=== PATIENT | male | born 1960 | race Caucasian/White ===

== ENCOUNTER 2019-10-12 17:07 | Outpatient (CLI) | payer OTHER, SELFPAY ==
--- NOTE | ~2019-10-12 | XR_ITS ---
XR abdomen/kub 1V 10/12/2019 17:31 INDICATION: Left-sided flank pain for 2 days. History of kidney stones. TECHNIQUE: KUB COMPARISON: None FINDINGS: Bowel gas pattern is normal. There is no evidence of free air, mass, organomegaly, ascites or obstruction. There are calcifications overlying the sacrum on the left. Cannot exclude ureteral s tone. The bones appear intact. There are calcified granulomas in the spleen. IMPRESSION: 1: Possible left ureteral stone/s overlying the sacrum.. Reviewed, dictated and finalized at location A.
--- NOTE | ~2019-10-12 | CT_ITS ---
EXAMINATION: CT abdomen pelvis wo con DATE: 10/12/2019 17:36 INDICATION: Flank pain. Kidney stones. TECHNIQUE: Computed tomography (CT) of the abdomen and pelvis was performed without intravenous contr ast. The dose-length product was 313.60 mGy-cm. Automated exposure control and iterative reconstructi on technique were employed. COMPARISON: CT dated 11/24/2011 FINDINGS: Lung bases are unremarkable. Heart size normal. There is atherosclerosis. No significant pl eural or pericardial effusion. There is nodular appearance to the liver surface, suspicious for cirrhosis. There are calcified granu patria in the spleen. The pancreas, adrenal glands are unremarkable. There are small exophytic nodule from the left kidney, too small to characterize. There are punctate nonobstructing bilateral renal st ones. No ureteral stones or hydronephrosis. Bladder is decompressed. There are pelvic vascular calcif ications accounting for calcifications seen on KUB. No abnormal pelvic masses or fluid collections. T here is mild left periureteral edema, nonspecific. IMPRESSION: 1. No obstructing urolithiasis. Mild left periureteral edema may relate to recently passed stone or a scending urinary tract infection. 2: Nodular appearance to the left kidney. Recommend correlation with ultrasound on a nonemergent basi s. 3: Nodular appearance to the liver surface, suspicious for cirrhosis. Reviewed, dictated and finalized at location A. IMPRESSION: 1. No obstructing urolithiasis. Mild left periureteral edema may relate to rece ntly passed stone or ascending urinary tract infection. 2: Nodular appearance to the left kidney. Recommend correlation with ultrasound on a nonemergent basis. 3: Nodular appearance to the liver surface, suspicious for cirrhosis.
== END 2019-10-12 17:08 | disposition home or self-care (01) ==
PROVIDERS: PCP Family Medicine; Visit Provider Nurse Practitioner Family
DX: M54.9 Dorsalgia, unspecified (principal); R10.9 Unspecified abdominal pain; R31.9 Hematuria, unspecified
CPT/HCPCS: 74018; 74176

== ENCOUNTER 2021-06-02 11:12 | Outpatient (CLI) | payer OTHER, SELFPAY ==
--- NOTE | ~2021-06-02 | XR_ITS ---
XR chest 2V DATE: 06/02/2021 11:33 INDICATION: Cough. Covid 19. TECHNIQUE: PA and lateral views COMPARISON: 06/12/2013 PA and lateral chest FINDINGS: Status post sternotomy no pulmonary vascular congestion or pleural effusion or pneumothorax .. Status post lower anterior cervical spine surgical fusion since 2013. Heart size is borderline. There are patchy infiltrates in the right mid and both lower lung zones, suggesting bilateral Covid p neumonia. IMPRESSION: Patchy bilateral pulmonary infiltrates suggesting bilateral Covid pneumonia Reviewed, dictated and finalized at location A. [employer] IMPRESSION: Patchy bilateral pulmonary infiltrates suggesting bilateral Covid p neumonia
[2021-06-02 11:59] LABS: Add Urine Microscopic? YES; Appearance Urine Clear (Clear); Bilirubin Urine Negative (Negative); Blood Urine Negative (Negative); Color Urine Yellow (Yellow); Glucose Urine UA Negative (Negative); Ketones Urine Negative (Negative); Leukocyte Esterase Ur 1+ LEU/UL (NEGATIVE); Mucus Urine Rare /lpf; Nitrate Urine Negative (Negative); Protein Urine 2+ mg/dL (Negative); Specific Grav Ur 1.027 (1.001-1.035); Urobilinogen Urine Negative mg/dL (<2.0); WBC Urine 51-75 /hpf (0-3)
[2021-06-02 12:05] LABS: Alanine Aminotransferase 60 U/L (4-50); Albumin Level 4.5 g/dL (3.5-5.1); Alkaline Phosphatase 65 U/L (38-126); Anion Gap 12 mmol/L (8-16); Aspartate Amino Transferase 56 U/L (17-59); Blood Urea Nitrogen 22 mg/dL (9-20); Calcium 8.8 mg/dL (8.4-10.2); Carbon Dioxide 24 mmol/L (22-30); Chloride 97 mmol/L (98-107); Estimated Glomerular Filt Rate > 60; Glucose 129 mg/dL (65-110); Potassium 4.2 mmol/L (3.4-5.0); Sodium 133 mmol/L (137-145)
[2021-06-02 12:08] LABS: D Dimer 0.32 ug/mL (<0.48)
== END 2021-06-02 11:13 | disposition home or self-care (01) ==
LOC: ANHIMG 11:13
PROVIDERS: PCP Family Medicine; Visit Provider Family Medicine
DX: R05.9 Cough, unspecified (principal); U07.1 COVID-19; R35.89 Other polyuria; R91.8 Other nonspecific abnormal finding of lung field
CPT/HCPCS: 36415; 71046; 80053; 81001; 85380

== ENCOUNTER 2023-07-21 10:21 | Outpatient (CLI) | payer OTHER, SELFPAY ==
[2023-07-21 11:05] LABS: Hemoglobin 13.8 g/dL (14.0-18.0); Mean Corpuscular HGB Conc 32.9 g/dl (32-36); Mean Corpuscular Hemoglobin 28.6 pg (26-34); Mean Corpuscular Volume 87.1 fl (80-100); Mean Platelet Volume 9.3 fl (7.4-10.4); Platelet Count Result 169 k/mm3 (150-375); Red Blood Count 4.82 M/mm3 (4.6-6.20); Red Cell Distribution Width 13.7 % (11.5-14.5); White Blood Count 8.3 K/mm3 (4.5-10.0)
[2023-07-21 11:09] LABS: Ammonia < 9 umol/L (9-30)
[2023-07-21 11:13] LABS: Iron 114 ug/dL (49-181)
[2023-07-21 11:20] LABS: Anion Gap 8 mmol/L (8-16); Blood Urea Nitrogen 16 mg/dL (9-20); Carbon Dioxide 25 mmol/L (22-30); Chloride 99 mmol/L (98-107); Estimated Glomerular Filt Rate > 60; Glucose 191 mg/dL (65-110); Magnesium 1.6 mg/dL (1.6-2.3); Sodium 132 mmol/L (137-145)
[2023-07-21 11:23] LABS: Percent Iron Saturation 35 % (20-50)
[2023-07-21 12:28] LABS: Potassium 4.4 mmol/L (3.4-5.0)
== END 2023-07-21 10:22 | disposition home or self-care (01) ==
LOC: ANHLAB 10:23
PROVIDERS: PCP Family Medicine; Visit Provider Family Medicine
DX: D50.0 Iron deficiency anemia secondary to blood loss (chronic) (principal); I10 Essential (primary) hypertension; E72.20 Disorder of urea cycle metabolism, unspecified
CPT/HCPCS: 36415; 80048; 82140; 82728; 83540; 83550; 83735; 85027

== ENCOUNTER 2024-05-11 12:56 | Emergency (ER) | payer OTHER, SELFPAY ==
[2024-05-11 13:14] VITALS: BP 131/81; PULSE 80; RESP 16; TEMP 36.6; O2SAT 98
--- NOTE | 2024-05-11 13:48 | ED.URI ---
HPI - URI/Sore Throat General Chief Complaint: Upper Respiratory Infection Stated Complaint: Congestion,cough Time Seen by Provider: 05/11/24 13:30 Source: patient Mode of arrival: ambulatory Limitations: no limitations History of Present Illness HPI Narrative: Gab is a 63-year-old male patient presenting to the clinic today with complaints of cough and head congestion x2 days. Has had exposure to COVID. tested positive for COVID in the clinic today. He denies any chest pain or shortness of breath. MD elicited complaint: cough and nasal congestion Related Data Home Medications ?Medication ?Instructions ?Recorded ?Confirmed ?Last Taken ?Type metoprolol succinate 50 mg 50 mg PO DAILY 07/13/19 06/01/23 Unknown History tablet,extended release 24 hr (Toprol XL) gabapentin 300 mg capsule 600 mg PO BID 03/12/21 06/01/23 Unknown History rosuvastatin 40 mg tablet (Crestor) 40 mg PO DAILY 04/21/22 06/01/23 Unknown History nitroglycerin 0.4 mg sublingual 0.4 mg sublingual Q5M PRN 06/01/23 06/01/23 Unknown History tablet glimepiride 1 mg tablet 1 mg PO QAM 07/19/23 Unknown History metformin 500 mg tablet 500 mg PO BID 07/19/23 Unknown History Allergies Allergy/AdvReac Type Severity Reaction Status Date / Time No Known Allergies Allergy Mild Verified 07/19/23 12:23 Review of Systems Review of Systems: Pertinent positives per HPI. Patient denies any fever, chills, rash, headache, visual changes, dizziness, shortness of breath, chest pain, palpitations, nausea, vomiting, diarrhea, constipation, abdominal pain, or any urinary issues. [facility] Past Medical History Medical History (Updated 05/11/24 @ 13:50 by Medardo Gil APRN) Hunner's ulcer Left kidney mass Fatigue Blood loss anemia Low vitamin D level Low vitamin B12 level Hyperammonemia Easy bruising Confusion BMI 29.0-29.9,adult Wheezy bronchitis Memory loss Dysphagia Apnea Right arm pain Recurrent urinary tract infection Vision loss, bilateral Dysuria Pneumonia due to COVID-19 virus BMI 30.0-30.9,adult Polyuria COVID-19 BMI greater than 30 Need for vaccination Nodular hyperplasia of liver Leg cramping BMI 31.0-31.9,adult Depression Arthralgia BMI 32.0-32.9,adult Tick bite Psoriasis Eustachian tube dysfunction Cerumen impaction Elevated liver enzymes Surgical History Surgical History Hx of cervical spine surgery Hx of bladder endoscopy Hx of colonoscopy History of bladder surgery Family History Family History Father Cerebrovascular accident Family history of diabetes mellitus in first degree relative Parkinson's disease Diabetes mellitus Heart disease Skin cancer Mother Family history of coronary artery disease Decreased mobility Hypertension Grandparent Diabetes mellitus Sibling Diabetes mellitus Hypertension Skin cancer Social History Social History Smoking status: Never smoker Second hand tobacco smoke exposure: Yes Alcohol intake: never Substance use: never Substance use type: does not use Do You Feel Safe in your Home?: Yes Lack of Transportation: No Lack of Food: Never True Current Housing: I Have Housing Concerned About Future Housing: No Difficulty Paying Gas/Electric Bills: No Difficulty Paying for Meds: No Currently Unemployed: No Education: Trade/Vocational Certificate Difficulty w/ Childcare or Family Care: No Living arrangements: with family Occupation/Education: retired Additional occupation/education comments: [employer] Gender identity (if verbalized by the patient): Male Comments At the time of my signature, I reviewed and agree with the nursing past medical, surgical, social, and family history. There is no relevant family history pertinent to the patient complaint. Exam Narrative: General: Well-developed, well nourished, in no apparent distress Head: Normocephalic, atraumatic Eyes: Pupils equally round and reactive to light bilaterally, EOM intact, sclera and conjunctive clear, no discharge, lids normal Ears: TMs intact and clear, ear canals clear, no drainage, grossly hearing normal. Nose: Nares patent, clear nasal discharge, no inflammation, no sinus tenderness. Mouth: Oral pharynx without lesions or masses, good dentition, MMM. Neck: Supple, trachea midline, no enlargement of anterior or posterior cervical nodes, no thyroid masses or goiter palpable. Cardio: Regular rate and rhythm, s1 and s2 normal, no murmur appreciated. Resp: Clear to auscultation bilaterally, no rhonchi, rales, wheezing or rubs Course Course Emergency Course: Portions of this record may have been created with voice recognition software. Level of Care: Express Care Visit Vital Signs Vital signs: Vital Signs Temperature 36.6 C 05/11/24 13:14 Pulse Rate 80 05/11/24 13:14 Respiratory Rate 16 05/11/24 13:14 Blood Pressure 131/81 05/11/24 13:14 Pulse Oximetry 98 05/11/24 13:14 Temperature 36.6 C 05/11/24 13:14 Pulse Rate 80 05/11/24 13:14 Respiratory Rate 16 05/11/24 13:14 Blood Pressure 131/81 05/11/24 13:14 Pulse Oximetry 98 05/11/24 13:14 Vital signs reviewed MDM - URI/Sore Throat MDM Narrative Medical decision making narrative: At the time of visit patient is resting comfortably on the exam table. Patient appears to be nontoxic. Labs: COVID test was negative in the clinic today. Plan: I suspect patient has URI with COVID exposure. Supportive measures were discussed with the patient and they voiced understanding discharge instructions and agrees to treatment plan. Return precautions reviewed Differential Diagnosis Differential diagnosis: Likely upper respiratory infection, otitis media, sinusitis, viral infection, bronchitis, influenza, pharyngitis and other (COVID) Lab Data Labs: Lab Results 05/11/24 Range/Units 13:49 POC Influenza A Ag Negative (Negative) POC Influenza B Ag Negative (Negative) POC SARS CoV-2 Ag Negative (Negative) Discharge Plan Discharge Clinical Impression: Close exposure to COVID-19 virus URI (upper respiratory infection) Qualifiers: URI type: unspecified URI Qualified Code(s): J06.9 - Acute upper respiratory infection, unspecified Patient Disposition: Home, Self-Care Condition: Stable Instructions: Antibiotic Form, Cold Symptoms (ED), How to Recover from COVID-19 at Home (ED) Additional Instructions: COVID and influenza testing was negative Increase fluids and stay well hydrated Tylenol/motrin for pain/fever Flonase and OTC antihistamines as directed Vicks vapor rub to open sinuses Sinus rinses for congestion Cepacol spray, cough drops, throat lozenges, warm tea with honey/lemon, gargle salt water to soothe throat BRAT diet for diarrhea Clear liquids x 24 hours then advance as tolerated for nausea/vomiting Go to the ED if you develop a worsening in your condition- high fever not controlled by Tylenol or Motrin, dehydration, weakness, lethargy, shortness of breath, or chest pain. Follow up with your PCP in 3-5 days if symptoms persist. Patient Language: Mexican Prescriptions: No Action gabapentin 300 mg capsule 600 mg PO BID metoprolol succinate [Toprol XL] 50 mg tablet extended release 24 hr 50 mg PO DAILY rosuvastatin [Crestor] 40 mg tablet 40 mg PO DAILY nitroglycerin 0.4 mg tablet, sublingual 0.4 mg sublingual Q5M PRN Rx Instructions: do not exceed 3 doses per episode metformin 500 mg tablet 500 mg PO BID glimepiride 1 mg tablet 1 mg PO QAM Rx Instructions: administer with breakfast albuterol sulfate 90 mcg/actuation HFA aerosol inhaler 2 puff INHALATION Q4H PRN (Reason: bronchospasm) Qty: 8.5 2RF dutasteride [Avodart] 0.5 mg capsule 0.5 mg PO DAILY Qty: 90 3RF duloxetine [Cymbalta] 30 mg capsule,delayed release(DR/EC) 30 mg PO DAILY Qty: 90 1RF lisinopril 10 mg tablet See Rx Instructions .ROUTE .COMPLEX Qty: 90 1RF Dose Instruction: TAKE ONE TABLET BY MOUTH EVERY DAY Rx Instructions: TAKE ONE TABLET BY MOUTH EVERY DAY omeprazole 40 mg capsule,delayed release(DR/EC) See Rx Instructions .ROUTE .COMPLEX Qty: 30 3RF Dose Instruction: TAKE ONE CAPSULE BY MOUTH EVERY DAY Rx Instructions: TAKE ONE CAPSULE BY MOUTH EVERY DAY oxycodone-acetaminophen [Percocet] 10-325 mg tablet See Rx Instructions PO Q6H PRN (Reason: pain) Qty: 30 0RF Rx Instructions: 0.5 to1 tab PO every 6 hours PRN; tizanidine 2 mg tablet See Rx Instructions .ROUTE .COMPLEX Qty: 60 0RF Dose Instruction: TAKE 2 TABLET BY MOUTH TWICE A DAY NEEDED FOR MUSCLE SPASTICITY Rx Instructions: TAKE 2 TABLET BY MOUTH TWICE A DAY NEEDED FOR MUSCLE SPASTICITY Follow-up/Referrals: Tomas Hernández MD [Primary Care Provider] - Time of Disposition: 13:50 Quality NIHSS Nursing Documentation ED NIHSS nursing documentation: reviewed/agree
[2024-05-11 13:51] LABS: EDCOVIDSCREEN Negative (Negative); EDINFLUASCREEN Negative (Negative); EDINFLUBSCREEN Negative (Negative)
== END 2024-05-11 14:00 | disposition home or self-care (01) ==
PROVIDERS: Emergency Provider Nurse Practitioner Family; PCP Family Medicine
DX: J06.9 Acute upper respiratory infection, unspecified (principal); Z20.822 Contact with and (suspected) exposure to COVID-19
CPT/HCPCS: 87426; 87804; 99212; G0463

== ENCOUNTER 2024-06-29 11:45 | Outpatient (CLI) | payer OTHER, SELFPAY ==
--- OUTSIDE RECORDS SUMMARY | 2024-06-29 11:49 | XMS_ITS | Referral Summary ---
Author Organization [facility] Address [address] [place] [address] Care Team Providers Care [employer] Firer Name Role Phone Tomas Hernández MD Primary Care Provider Francisco Domínguez MD Unavailable [phone] Encounters Date Type Department Care Team Description 5 10:07 AM [facility] Anesthesia Event [facility] [place] [address] [address] Agnes Ferrer MD 5 10:00 AM SOLUTIONS MANAGER - 5 10:30 AM [facility] Surgery [facility] [place] [address] [address] Enriqueta Pardo MD ESOPHAGOGASTRODUODENOSCOPY 5 8:33 AM SOLUTIONS MANAGER - 5 11:10 AM [facility] Hospital Encounter [facility] [place] [address] [address] Enriqueta Pardo MD Discharge Disposition: Discharge to home or self care 5 Telephone [facility] Specialty Services [address] [place] [address], [place] [address] Zarina Mauro RN GI PROCEDURE 7 DAY PRE CALL 5 Telephone [facility] Urology [address] [facility] Medical Office Building [address] [place] [phone] Bg Desai MD 4 11:59 PM SOLUTIONS MANAGER Anesthesia Event [facility] [address] [facility] [address] [place] [address] Joseph Vallejo MD Terkonda, Raghu P., MD 4 Telephone [facility] Specialty Services [address] [place] [phone] Miscellaneous , Not In File 4 Telephone [facility] [address] [facility] Advanced [facility] 12th [place] [address] [place] [phone] Kusum Bansal 4 Telephone [facility] Specialty Services [address] [place] [phone] Drea Ragland RN GI Preprocedure 4 Telephone [facility] Cardiology [address] [facility] [address] [place] [address] Joseph Lockwood MD Med Refill 4 Telephone [facility] [address] [place] [address] [address] [place] [address] Kim Huerta MD Med Refill 4 3:00 PM SOLUTIONS MANAGER [facility] Urology [address] [facility] 11th [place] [address] [place] [phone] Cici Contreras MD Clear cell renal cell carcinoma, left (HCC) (Primary Dx); Interstitial cystitis 4 1:35 PM SOLUTIONS MANAGER Lab [facility] Lab [address] [place], [place] [id number] Type 2 diabetes mellitus wit h hyperglycemia, without long-term current use of insulin (HCC); Vitamin D deficiency 4 1:55 PM SOLUTIONS MANAGER - 4 11:59 PM SOLUTIONS MANAGER Hospital Encounter [facility] Medical Office Building [address] [place] [id number] Clear cell renal cell carcinoma, left (HCC) Discharge Disposition: Discharge to home or self care 4 Telephone [facility] Diabetes [facility] Endocrinology [address] [place] [phone] Kim Huerta MD PCP Callback Request - Patient 4 1:15 PM SOLUTIONS MANAGER Office Visit [facility] Endocr[facility]ology [address] [place] [phone] Kim Huerta MD Type 2 diabetes mellitus with hyperglycemia, without long-term current use of insulin (HCC) (Primary Dx); Hypertension associated with diabetes (HCC); Hyperlipidemia associated with type 2 diabetes mellitus (HCC); Vitamin D deficiency 4 12:15 PM SOLUTIONS MANAGER - 4 1:30 PM SOLUTIONS MANAGER Surgery [facility] Operating Room [address] [place] [address] Bg Desai MD BLADDER HYDRODISTENTION: KENALOG INJECTION FULGURATION OF HUNNER LESIONS 4 11:53 AM SOLUTIONS MANAGER Anesthesia Event [facility] Operating Room 1 [place] [address] Grey Rhoades MD Horton, Cheryl Renee Hill, NP 4 9:11 AM SOLUTIONS MANAGER - 4 2:08 PM SOLUTIONS MANAGER Hospital Encounter [facility] Operating Room [address] [place] [address] Bg Desai MD IC (interstitial cystitis) (Primary Dx) Discharge Disposition: Discharge to home or self care 4 3:20 PM SOLUTIONS MANAGER - 4 11:59 PM SOLUTIONS MANAGER Hospital Encounter [address] [address] Interstitial cystitis Discharge Disposition: Discharge to home or self care 4 3:15 PM SOLUTIONS MANAGER Lab [facility] Outpatient Lab at [address] [phone] from Last 3 Months Allergies No known active allergies Medications omeprazole (PriLOSEC) 40 mg capsuleIndicati ons:Treatment of Non-Bleeding Gastric Disorder Take 1 capsule (40 mg total) by mouth nightly Active lisinopril (PRINIVIL,ZESTR IL) 10 mg tabletIndicatio ns:hypertension Take 1 tablet (10 mg total) by mouth nightly 8 Active albuterol HFA (PROVENTIL HFA,VENTOLIN HFA,PROAIR HFA) 90 mcg/actuation inhalerIndicati ons:illness related Inhale 1 puff as needed for wheezing or shortness of breath 6 Active omega 3-wdb-npu-fish oil 1,000 mg (120 mg-180 mg) capsuleIndicati ons:hypertrigly ceridemia Take 1 capsule (1,000 mg total) by mouth 2 (two) times a day Active aspirin 81 mg enteric coated tablet Take 1 tablet (81 mg total) by mouth nightly On hold currently Active dutasteride (AVODART) 0.5 mg capsuleIndicati ons:benign prostatic hyperplasia with lower urinary tract sx Take 1 capsule (0.5 mg total) by mouth nightly Active nabumetone (RELAFEN) 750 mg tabletIndicatio ns:Osteoarthrit is Take 1 tablet (750 mg total) by mouth 2 (two) times a day Active gabapentin (NEURONTIN) 300 mg capsuleIndicati ons:Neuropathic Pain Take 1 capsule (300 mg total) by mouth 3 (three) times a day Active vit A/vit C/vit E/zinc/copper (PRESERVISION AREDS ORAL)Indication s:eye supplement Take 1 tablet by mouth 2 (two) times a day Active DULoxetine DR (CYMBALTA) 30 mg capsuleIndicati ons:Neuropathic Pain Take 1 capsule (30 mg total) by mouth every morning 2 Active tiZANidine (ZANAFLEX) 2 mg tabletIndicatio ns:Muscle Spasm Take 1 tablet (2 mg total) by mouth as needed for muscle spasms 2 Active acetaminophen (TYLENOL) 500 mg tabletIndicatio ns:Pain Take 1 tablet (500 mg total) by mouth every 6 (six) hours as needed for pain 30 tablet 4 Active oxyCODONE (ROXICODONE) 5 mg immediate release tabletIndicatio ns:Pain Take 1 tablet (5 mg total) by mouth every 4 (four) hours as needed for pain 20 tablet 4 Active Myrbetriq 50 mg tablet extended release 24 hrIndications:U rinary frequency TAKE 1 TABLET BY MOUTH EVERY DAY 90 tablet 1 4 Active metFORMIN XR (GLUCOPHAGE XR) 500 mg 24 hr tabletIndicatio ns:Type 2 diabetes mellitus with hyperglycemia, without long-term current use of insulin (HCC) Take 1 tablet (500 mg total) by mouth daily 90 tablet 3 4 04/17/20 25 Active glimepiride (AmaryL) 1 mg tabletIndicatio ns:type 2 diabetes mellitus Take 1 tablet (1 mg total) by mouth daily with breakfast 90 tablet 3 4 04/17/20 25 Active nitroglycerin (NITROSTAT) 0.4 mg SL tabletIndicatio ns:acute episode of anginal pain Place 1 tablet (0.4 mg total) under the tongue every 5 (five) minutes as needed for chest pain 90 tablet 3 4 Active Additional Information Patient not taking.Informant: Self, Reported on 06/23/2024 metoprolol XL (TOPROL-XL) 50 mg extended release tablet TAKE ONE TABLET BY MOUTH NIGHTLY 90 tablet 3 4 Active rosuvastatin (CRESTOR) 40 mg tablet TAKE ONE TABLET BY MOUTH NIGHTLY 90 tablet 3 4 Active oxyCODONE-aceta minophen (PERCOCET) 10-325 mg per tablet TAKE 1/2 TO 1 TABLET BY MOUTH EVERY 6 HOURS NEEDED FOR PAIN 4 Active dorzolamide-akshat oloL (COSOPT) 22.3-6.8 mg/mL ophthalmic solution INSTILL 1 DROP INTO LEFT EYE TWICE A DAY 4 Active phenazopyridine (Pyridium) 200 mg tablet Take 1 tablet (200 mg total) by mouth 3 (three) times a day 10 tablet 5 06/18/19 25 Active Problems Problem Noted Date Diagnosed Date Blood clots in urine 08/18/2023 Renal mass 07/21/2023 Hematuria 07/10/2023 Hypertension associated with diabetes 06/01/2023 Assessment & Plan (04/17/2024 2:06 PM SOLUTIONS MANAGER): Chronic, well controlled Continue lisinopril and metoprolol Assessment & Plan (09/21/2023 12:41 PM CDT): Chronic, well-controlled. Continue lisinopril. Update microalbumin Assessment & Plan (06/01/2023 12:01 PM SOLUTIONS MANAGER): Chronic problem. Controlled on current lisinopril 10mg daily, metoprolol XL 50mg nightly Hepatic cirrhosis 05/04/2023 Benign colon polyp 05/04/2023 IC (intermittent claudication) 12/31/2022 Syncope and collapse 07/23/2022 Type 2 diabetes mellitus wit h hyperglycemia, without long-term current use of insulin 07/23/2022 Assessment & Plan (04/17/2024 2:05 PM SOLUTIONS MANAGER): Chronic, overall well controlled with hemoglobin A1c 5.4% Patient complain of night sweats overnight suspect hypoglycemia, in the setting of sulfonylurea use Initial plan was to stop glimepiride and decrease metformin XR to 1 tablet oral daily as patient not tolerating well and start Farxiga 10 mg oral daily But Farxiga is very expensive Plan changed back to restarting glimepiride 1 tablet oral daily and still decrease metformin XR to 1 tablet oral daily at bedtime Advised to have a bedtime snack every day and check blood sugars overnight with any symptoms and if blood sugars are less than 80 overnight advised to cut back on glimepiride We will obtain patient's last eye exam copy Check labs today Assessment & Plan (09/21/2023 12:40 PM CDT): Chronic, well-controlled. Lower metformin to 500 mg b.i.d. because of diarrhea Continue glimepiride 1 mg daily. Prevention of hypoglycemia was discussed Assessment & Plan (06/01/2023 1:18 PM SOLUTIONS MANAGER): Chronic problem. Currently not taking any medications. A1c has improved from 7.1% to now 6.7%. does not watch diet but has stopped regular soda & moved to Dr Tiana almaraz. Discussed need to stop as caffeine is bladder irritant (dx'd interstitial cystitis). Not physically active outside of hunting & seasonal yard work. Declines any medications. Discussed GLP1s. Reviewed need to improve diet & increase activity. Need to increase water in place of diet soda. Has appt set for 09/21/23 w/Dr Mcdaniel. Will re-evaluate at that time. Aware that he can call/send sones message if he changes his mind about GLP1 or if he notes that blood sugars are climbing. Discussed with Gab Braun: Strive for regular exercise (30min most days) and diet (get at least 4-5 servings of fruit and veggies daily, avoid processed foods, increase lean protein intake and decrease carb portions as well as fruit juices, regular soda & desserts). Watch carbs and simple sugars. Check the blood sugar: 2-3 days. . Check the feet daily for skin breakdown and infection. Assessment & Plan (01/21/2023 2:51 PM CDT): Hba1c was Lab Results Component Value Date HGBA1C 7.1 01/21/2023 today, indicating suboptimal DM control Goal Hba1c under 7.0 and blood glucose 90-140 was explained Diet and exercise were advised Prevention and treatment of hyypoglcyemia were discussed with the patient Blood glucose monitoring : every other day Adjustment to medications: Pt prefers to stay off meds Would recommend a GLP1 analog. Assessment & Plan (07/23/2022 4:32 PM SOLUTIONS MANAGER): Hba1c was Lab Results Component Value Date HGBA1C 6.2 07/23/2022 today, indicating adequate DM control Goal Hba1c under 7 and blood glucose 100 to 120, was explained Diet and exercise were advised . Importance of low carb diet, mostly avoiding sweetened drinks and rapid absorption carbohydrates. Any kind of physical activity either aerobic and or resistant exercise was also recommended, for at least 20 minutes a day Blood glucose monitoring : I advised him on doing it twice a week, Mondays and Fridays on alternate times of the day. A prescription was sent for glucometer and test strips I explained to Mr. Braun and his different options in terms of pharmacological treatment. Might consider the use of SGL T2 inhibitor for cardiac and kidney protection. Metformin could also be tried. The other option is to continue working with diet and exercise. He has decided to stay off of any pharmacological intervention for now and will continue trying to adhere to a low carb low calorie IC (interstitial cystitis) 09/17/2021 Overview (09/17/2021): Added automatically from request for surgery [id number] Pelvic pain 01/24/2021 Overview (01/24/2021): Added automatically from request for surgery [id number] Benign prostatic hyperplasia 01/09/2021 Healthcare maintenance 02/15/2018 Assessment & Plan (02/15/2018 8:19 AM CDT): He reports having had a colonoscopy about 4 years ago removing small polyps. Elevated liver enzymes 02/11/2018 Plantar fasciitis 02/03/2018 Overview (02/03/2018): Added automatically from request for surgery [id number] S/P CABG (coronary artery bypass graft) 06/22/19 17 Essential hypertension 11/07/2015 Hyperlipidemia associated with type 2 diabetes nohelia davalos 11/07/2015 Assessment & Plan (04/17/2024 2:03 PM SOLUTIONS MANAGER): Continue statin therapy Assessment & Plan (09/21/2023 12:41 PM CDT): Chronic, well-controlled. Continue statin therapy with rosuvastatin Assessment & Plan (06/01/2023 1:15 PM SOLUTIONS MANAGER): Chronic problem. Managed by cardiology. Currently taking Rosuvastatin 40mg. Last lipid panel: 01/21/23 LDL=97, RP=396. Assessment & Plan (01/21/2023 2:52 PM CDT): LDL goal under 100 Diet and exercise Continue Rosuvastatin Update lipid profile Atherosclerotic heart diseas e of [place] coronary artery without angina pectoris 05/21/2008 Dizziness and giddiness 03/05/2008 Family history of ischemic h eart disease and other diseases of the circulatory system 03/05/2008 Immunizations Name Administration Dates Next Due Influenza, Quadrivalent, Rec ombinant, Egg Free, Preservative Free, Intramuscular 04/28/2021 Influenza, Quadrivalent, Spl it, Preservative Free, Intramuscular 03/21/2020 Influenza, Split 06/12/2013 Pneumococcal Conjugate PCV 13 04/28/2021 Social History Tobacco Use Types Packs/Day Years Used Date Smoking Tobacco: Never Passive Smoke Exposure: Past Smokeless Tobacco: Never Tobacco Cessation:Counseling Given: Not Answered Alcohol Use Standard Drinks/Week Comments No 0 (1 standard drink = 0.6 oz pur e alcohol) [facility] [employer] Answer Date Recorded In the past 12 months has th e [employer], gas, oil, or water [employer] threatened to shut off services in your home? No 09/29/2023 Social Connection and Isolat ion Panel [NHANES] Answer Date Recorded In a typical week, how many times do you talk on the phone with family, friends, or neighbors? More than three times a week 09/29/2023 How often do you get togethe r with friends or relatives? More than three times a week 09/29/2023 How often do you attend chur ch or hoahaoism services? 1 to 4 times per year 09/29/2023 Do you belong to any clubs o r organizations such as roman catholic groups, unions, fraternal or athletic groups, or school groups? Yes 09/29/2023 How often do you attend meet ings of the clubs or organizations you belong to? 1 to 4 times per year 09/29/2023 Are you , , di vorced, , never , or living with a partner? 09/29/2023 AUDIT-C Answer Date Recorded Q1: How often do you have a drink containing alcohol? Never 06/23/2024 Q2: How many drinks containi ng alcohol do you have on a typical day when you are drinking? Patient does not drink Q3: How often do you have si x or more drinks on one occasion? Never 06/23/2024 Overall Financial Resource Strain (CARDIA) Answe r Date Recorded How hard is it for you to pa y for the very basics like food, housing, medical care, and heating? Not hard at all 09/29/2023 Hunger Vital Sign Answer Date Recorded Within the past 12 months, y ou worried that your food would run out before you got the money to buy more. Never true 09/29/19 24 Within the past 12 months, t he food you bought just didn't last and you didn't have money to get more. Never true 09/29/2023 PRAPARE - Transportation Answer Date Re corded In the past 12 months, has l ack of transportation kept you from medical appointments or from getting medications? No 09/14 In the past 12 months, has l ack of transportation kept you from meetings, work, or from getting things needed for daily living? No 09/29/2023 Housing Stability Vital Sign Answer Gurwinder e Recorded In the last 12 months, was t here a time when you were not able to pay the mortgage or rent on time? No 09/29/2023 In the last 12 months, how many places have you lived? 1 09/29/2023 In the last 12 months, was t here a time when you did not have a steady place to sleep or slept in a fdc (including now)? No 09/29/2023 Personal Safety Answer Date Recorded Have you ever been in or are you currently in a harmful physical or emotional relationship or is someone making you feel afraid or unsafe? Denies 06/23/2024 Sex and Gender Information Value Date Recorded Sex Assigned at Not on file Legal Sex Male 2:12 AM SOLUTIONS MANAGER Gender Identity Not on file Sexual Orientation Not on file Last Filed Vital Signs Vital Sign Reading Time Taken Comments Blood Pressure 113/87 06/23/2024 10:48 AM SOLUTIONS MANAGER Pulse 89 06/23/2024 10:48 AM SOLUTIONS MANAGER Temperature 36.2 C (97.2 F) 06/23/2024 10:28 AM SOLUTIONS MANAGER Respiratory Rate 18 06/23/2024 10:48 AM SOLUTIONS MANAGER Oxygen Saturation 94% 06/23/2024 10:48 AM SOLUTIONS MANAGER Inhaled Oxygen Concentration - - Weight 81.6 kg (180 lb) 06/23/2024 8:55 AM SOLUTIONS MANAGER Height 165.1 cm (5' 5 ) 06/23/2024 8:55 AM SOLUTIONS MANAGER Body Mass Index 29.95 06/23/2024 8:55 AM SOLUTIONS MANAGER Plan of Treatment Scheduled Procedures Name Priority Associated Diagnoses Date/Ti me BLADDER HYDRODISTENTION IC (interstitial cystitis) CYSTOSCOPY IC (interstitial cystitis) Goals Goal Patient Goal Type Associated Problems Recent Progress Patient-Stated? Author [facility] Fall Prevention Care Plan Chronic Care Management No change(04/15 9:53 AM SOLUTIONS MANAGER) No Chani Vela RN Note: Problem: Falls Goals: 1. Maintain strength and balance as able 2. Prevent falls and fractures 3. Maximize safety of living environment Strategies: - Educate on fall prevention and follow-up as needed - Recommend activity/exercise program - Refer to allied health as needed - Recommend healthy lifestyle strategies and compensatory methods as needed [facility] Chronic Pain Care Plan Chronic Care Management No change(04/15 9:53 AM SOLUTIONS MANAGER) No Chani Vela RN Note: Problem: Chronic Pain Goals: 1. Minimize further functional decline 2. Maximize quality of life 3. Control pain Strategies: - Activity/exercise program recommendation - Conservative stepwise pain medicine strategy with multi-disciplinary approach - Recommend healthy lifestyle strategies and compensatory methods as needed Medical Devices Implanted Type Area Crm Business Analyst Device Identifier Shelf Expiration Date Model / Serial / Lot Chest Sternal Wires Chest Description:Cabg x [id number] Procedures Procedure Name Priority Date/Time Associated Diagnosis Comments ESOPHAGOGASTRODUODENOSCOPY 06/23 10:07 AM SOLUTIONS MANAGER Hepatic cirrhosis, unspecified hepatic cirrhosis type, unspecified whether ascites present (HCC) Elevated liver enzymes Healthcare maintenance EGD 06/23/2024 10:03 AM SOLUTIONS MANAGER POCT GLUCOSE DEVICE Routine 06/23/2024 9:[address] ABDOMEN W WO CONTRAST Schedule Routine, Read Routine (OP Routine) 04/18/2024 2:25 PM SOLUTIONS MANAGER Clear cell renal cell carcinoma, left (HCC) POCT CREATININE FOR CONTRAST EVALUATION Routine 04/18/2024 2:19 PM SOLUTIONS MANAGER EGFR Routine 04/18/2024 1:41 PM SOLUTIONS MANAGER Type 2 diabetes mellitus with hyperglycemia, without long-term current use of insulin ([facility]) VITAMIN D 25 HYDROXY Routine 04/18/2024 1:41 PM SOLUTIONS MANAGER Vitamin D deficiency THYROID FUNCTION CASCADE Routine 024 1:41 PM SOLUTIONS MANAGER Type 2 diabetes mellitus with hyperglycemia, without long-term current use of insulin (HCC) COMPREHENSIVE METABOLIC PANEL Routine 1:41 PM SOLUTIONS MANAGER Type 2 diabetes mellitus with hyperglycemia, without long-term current use of insulin ([facility]) POCT HEMOGLOBIN A1C Routine 04/17/2024 1:13 PM SOLUTIONS MANAGER Type 2 diabetes mellitus with hyperglycemia, without long-term current use of insulin ([facility]) POCT GLUCOSE Routine 04/17/2024 1:13 PM SOLUTIONS MANAGER Type 2 diabetes mellitus with hyperglycemia, without long-term current use of insulin ([facility]) POCT GLUCOSE DEVICE Routine 04/03/2024 12:46 PM SOLUTIONS MANAGER [place] AN PROCEDURE PLACEHOLDER Routine 03/17 12:14 PM SOLUTIONS MANAGER [place] AN ELECTIVE SUPRAGLOTTIC AIRWAY Routine 04/03/2024 12:14 PM SOLUTIONS MANAGER CYSTOSCOPY 04/03/2024 11:54 AM SOLUTIONS MANAGER IC (interstitial cystitis) Special Needs KENALOG (400 mg in 5 cc) BLADDER HYDRODISTENTION 04/03/20 24 11:54 AM SOLUTIONS MANAGER IC (interstitial cystitis) Special Needs KENALOG (400 mg in 5 cc) POCT GLUCOSE DEVICE Routine 04/03/2024 10:18 AM SOLUTIONS MANAGER URINE CULTURE Routine 03/29/2024 3:20 PM SOLUTIONS MANAGER Interstitial cystitis ALBUMIN CREATININE RATIO, URINE Routine 09/21/2023 1:01 PM CDT Type 2 diabetes mellitus with hyperglycemia, without long-term current use of insulin (CMS/HCC) ([facility]) PSA DIAGNOSTIC Routine 06/15/2023 2:16 PM SOLUTIONS MANAGER Encounter for screening for malignant neoplasm of prostate Benign enlargement of prostate LIPID PANEL Routine 01/21/2023 3:16 PM CDT Hyperlipidemia associated with type 2 diabetes mellitus (HCC) HM DIABETES EYE EXAM Routine 10/23/2022 9:30 AM CDT COLONOSCOPY 04/27/2022 11:17 AM SOLUTIONS MANAGER HEPATITIS PANEL, ACUTE Routine 10:20 AM SOLUTIONS MANAGER from Last 3 Months or Most Recently Relevant to Health Maintenance Results * EGD (06/23/2024 10:03 AM SOLUTIONS MANAGER) Anatomical Region Laterality Modality Other Narrative Procedure Note Enriqueta Pardo MD - 06/23/2024 10:03 AM [facility] Patient Name: Gab Braun Procedure Date: 06/23/2024 10:03 AM Date of : 1960 Admit Type: Outpatient Age: 64 Gender: Male Attending MD: Enriqueta Beckford M.D. Room: [facility] ENDOSCOPY ROOM 3 Note Status: Finalized Procedure: Upper GI endoscopy Indications: Cirrhosis with suspected esophageal varices Referring MD: Hudson Tellez M.D. Providers: Enriqueta Pardo M.D., Evelyn Wolf M.D. Medicines: Monitored Anesthesia Care Complications: No immediate complications. Estimated Blood Loss: Estimated blood loss: none. Procedure: Pre-Anesthesia Assessment: - Prior to the procedure, a History and Physicalwas performed, and patient medications, allergies and sensitivities were reviewed. The patient'stolerance of previous anesthesia was reviewed. - The risks and benefits of the procedure and the sedation options and risks were discussed with the patient. All questions were answered and informed consent was obtained. The benefits, risks, and alternatives to theprocedure and sedation were discussed and informed consentwas obtained. The scope was passed under direct vision. The GIF [id number] endoscope was introducedthrough the mouth, and advanced to the body of the stomach. The scope was not retroflexed or passed beyond the body of the stomach given aspiration riskassociated with the large amount of residual solid food in stomach. The upper GI endoscopy was accomplished without difficulty. The patient tolerated the procedure well. Findings: The examined esophagus was normal. A large amount of food (residue) was found in the gastric body. Full evalution of stomach was not performed given aspiration risk. Retroflexion was not performed. Impression: - Normal esophagus. - A large amount of food (residue) in the stomach. Scope not retroflexed or passed beyond body ofstomach given aspiration risk associated with large amountof solid food in stomach. - No specimens collected. Recommendation: Recommendations regarding repeat EGD per . Attending Participation: I was present and participated during the entire procedure, including non-mckeon portions. Electronically signed by Enriqueta Pardo MD Enriqueta Pardo M.D. 06/23/2024 10:30:46 AM . Number of Addenda: 0 Note Initiated On: 06/23/2024 10:03 AM us Enriqueta Pardo MD ENDOSCOPY PROCEDURES Final Result * POCT glucose (06/23/2024 9:00 AM SOLUTIONS MANAGER) Glucose, POC 129 70 - 199 mg/dL Blood 06/23/2024 9:00 AM SOLUTIONS MANAGER 06/23/2024 9:00 AM SOLUTIONS MANAGER us Enriqueta Pardo MD LAB POCT ORDERABLES - DEVICE Final Result SHANTAL ZUNIGA [facility] [place] [address] * CT Abdomen W WO Contrast (04/18/2024 2:25 PM SOLUTIONS MANAGER) Anatomical Region Laterality Modality Body N/A Computed Tomogra phy 04/19/2024 5:42 PM SOLUTIONS MANAGER Narrative 04/19/2024 5:45 PM SOLUTIONS MANAGER EXAM DESCRIPTION: CT ABDOMEN W WO CONTRAST REASON FOR STUDY: History of renal cell carcinoma status post partial left nephrectomy for follow-up. TECHNIQUE: CT scan of the abdomen performed without and with intravenous and without oral contrast using helical scanning technique with dynamic intravenous contrast injection. Precontrast, nephrographic phase, and excretory phases were acquired.. Reconstructed coronal and sagittal MPR images reviewed. All images stored on PACS. Automated exposure control was used as a dose optimization technique for this examination. CONTRAST TYPE/DOSE: 100mL of IOVERSOL 350 MG IODINE/ML INTRAVENOUS SYRINGE injected via intravenous COMPARISON: None available. FINDINGS: KIDNEYS: No identified significant cystic or solid masses. 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 No convincing evidence of residual/recurrent mass. No calculi. Normal renal collecting systems. ABDOMEN: LOWER CHEST: No significant pulmonary abnormalities. No effusion. LIVER: Diffuse hypoattenuation of the hepatic parenchyma compatible with hepatic steatosis. Diffuse nodularity of the hepatic contour compatible with underlying cirrhosis. Hypertrophy of the caudate lobe. The spleen the spleen is mildly enlarged likely secondary to underlying portal hypertension. GALLBLADDER: No stones identified. No wall thickening or inflammatory changes. BILE DUCTS: No intrahepatic or extrahepatic ductal dilatation. SPLEEN: Normal size. No focal lesions. PANCREAS: No identified cystic or solid masses. No significant calcifications. No adjacent inflammation or peripancreatic fluid collections. Pancreatic duct not dilated. ADRENALS: Normal. GI: No dilated bowel loops. No obvious wall thickening. Normal appendix. No significant diverticular disease. PERITONEUM: No ascites or free air. RETROPERITONEUM: No mass or adenopathy. VASCULATURE: No abdominal aortic aneurysm. MUSCULOSKELETAL: No acute findings. OTHER: No other abnormality. 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 No convincing evidence of residual/recurrent mass. Continued follow-up is recommended. Hepatic steatosis with cirrhosis. Mild splenomegaly likely secondary to underlying portal hypertension. THIS IS AN ELECTRONICALLY VERIFIED FINAL REPORT 04/19/2024 5:45 PM - Electronically signed by Florencio Selby M.D. JA: SHERYL Report ID: [id number] Reading Location: [id number] Procedure Note Florencio Selby MD - 04/19/2024 EXAM DESCRIPTION: CT ABDOMEN W WO CONTRAST REASON FOR STUDY: History of renal cell carcinoma status post partialleft nephrectomy for follow-up. TECHNIQUE: CT scan of the abdomen performed without and withintravenous and without oral contrast using helical scanning technique with dynamic intravenous contrast injection. Precontrast, nephrographic phase, and excretory phases were acquired.. Reconstructed coronal and sagittal MPRimages reviewed. All images stored on PACS. Automated exposure control was usedas a dose optimization technique for this examination. CONTRAST TYPE/DOSE: 100mL of IOVERSOL 350 MG IODINE/ML INTRAVENOUSSYRINGE injected via intravenous COMPARISON: None available. FINDINGS: KIDNEYS: No identified significant cystic or solid masses. Postsurgical changes from prior left kidney superior pole partialnephrectomy with small amount of residual fluid in the surgical bed as well asinvolving infarction of the left kidney upper pole, unchanged. No convincingevidence of residual/recurrent mass. No calculi. Normal renal collecting systems. ABDOMEN: LOWER CHEST: No significant pulmonary abnormalities. No effusion. LIVER: Diffuse hypoattenuation of the hepatic parenchyma compatible with hepatic steatosis. Diffuse nodularity of the hepatic contour compatiblewith underlying cirrhosis. Hypertrophy of the caudate lobe. The spleen thespleen is mildly enlarged likely secondary to underlying portal hypertension. GALLBLADDER: No stones identified. No wall thickening or inflammatory changes. BILE DUCTS: No intrahepatic or extrahepatic ductal dilatation. SPLEEN: Normal size. No focal lesions. PANCREAS: No identified cystic or solid masses. No significant calcifications. No adjacent inflammation or peripancreatic fluidcollections. Pancreatic duct not dilated. ADRENALS: Normal. GI: No dilated bowel loops. No obvious wall thickening. Normalappendix. No significant diverticular disease. PERITONEUM: No ascites or free air. RETROPERITONEUM: No mass or adenopathy. VASCULATURE: No abdominal aortic aneurysm. MUSCULOSKELETAL: No acute findings. OTHER: No other abnormality. IMPRESSION: Postsurgical changes from prior left kidney superior pole partialnephrectomy with small amount of residual fluid in the surgical bed as well asinvolving infarction of the left kidney upper pole, unchanged. No convincingevidence of residual/recurrent mass. Continued follow-up is recommended. Hepatic steatosis with cirrhosis. Mild splenomegaly likely secondary to underlying portal hypertension. THIS IS AN ELECTRONICALLY VERIFIED FINAL REPORT 04/19/2024 5:45 PM - Electronically signed by Florencio Selby M.D. JA: SHERYL Report ID: [id number] Reading Location: [place] [address] Cici Contreras MD IM CT PROCEDURES Final Result * (ABNORMAL) POCT creatinine for contrast evaluation (04/18/2024 2:19 PM SOLUTIONS MANAGER) Creatinine POC 1.40(H) 0.80 - 1.30 mg/dL Comment:Testing performed by : [facility], [address] [place] [address]., [address] Blood 04/18/2024 2:19 PM SOLUTIONS MANAGER 04/18/2024 2:19 PM SOLUTIONS MANAGER us Tomas Hernández MD POINT OF CARE TEST ORDERABLE S Final Result Performing Organization Address [facility] de Phone Number SHANTAL [address] [facility] [place] [address] * eGFR (04/18/2024 1:41 PM SOLUTIONS MANAGER) eGFR 74 >=60 mL/min/1. 73 m2 Comment: Interpretive Data Reference Interval Normal >/= 90 mL/min/1.73m2 Mildly decreased* 60 - 89 mL/min/1.73m2 Mildly to moderately decreased 45 - 59 mL/min/1.73m2 Moderately to severely decreased 30 - 44 mL/min/1.73m2 Severely decreased 15 - 29 mL/min/1.73m2 Kidney Failure < 15 mL/min/1.73m2 *Relative to young adult level Estimated glomerular filtration rate is determined by the 2020 CKD-EPI equation recommended by the National Kidney Foundation (A Unifying Approach to GFR Estimation: Recommendations of the NKF-ASK Task Force on Reassessing the Inclusion of Race in Diagnosing Kidney Disease, JASN 2020). The CKD-EPI equation should not be used for patients with unstable renal function and has not been validated in children and those over 70. Current interpretive data was last reviewed 2021. Testing performed by: [address] [address] Blood 04/18/2024 1:41 PM SOLUTIONS MANAGER 04/18/2024 2:30 PM SOLUTIONS MANAGER us Kim Rivera MD LAB BLOOD ORDERABLE S Final Result Performing Organization Address City/[facility]/ZIP Co de Phone Number SHANTAL [facility] [place] [address] * Thyroid Function Orange (04/18/2024 1:41 PM SOLUTIONS MANAGER) TSH 3.16 0.30 - 4.20 mcIUnit/mL Comment:Testing performed by : [address] [address] Blood 04/18/2024 1:41 PM SOLUTIONS MANAGER 04/18/2024 2:30 PM SOLUTIONS MANAGER Kim Rivera MD LAB BLOOD ORDERABLE S Final Result Performing Organization Address City/[facility]/ZIP Co de Phone Number [address] [address] * Vitamin D 25 hydroxy (04/18/2024 1:41 PM SOLUTIONS MANAGER) [facility] Vitamin D 25-OH 36.0 30.0 - 80.0 ng/mL Blood 04/18/2024 1:41 PM SOLUTIONS MANAGER 04/18/2024 5:17 PM SOLUTIONS MANAGER Kim Rivera MD LAB BLOOD ORDERABLE S Final Result Performing Organization Address City/[facility] Co de Phone Number [address] [address] * (ABNORMAL) Comprehensive metabolic panel (04/18/2024 1:41 PM SOLUTIONS MANAGER) [facility] Sodium 139 135 - 145 mmol/L Comment:Testing performed by : [address] [address] Potassium, pl 4.4 3.3 - 4.9 mmol/L SHANTAL Comment:Testing performed by : [address] [address] Chloride 101 97 - 110 mmol/L SHANTAL Comment:Testing performed by : [address] [address] CO2 25 22 - 32 mmol/L SHANTAL Comment:Testing performed by : [address] [address] Anion gap 13 2 - 15 mmol/L SHANTAL Comment:Testing performed by : [address] [address] BUN 30(H) 6 - 25 mg/dL SHANTAL Comment:Testing performed by : [address] [address] Creatinine 1.10 0.80 - 1.30 mg/dL SHANTAL Comment:Testing performed by : [address] [address] Glucose 94 70 - 199 mg/dL SHANTAL Comment: Interpretive Data Fasting glucose >/= 126 mg/dl is diagnostic for diabetes. Fasting is defined as no caloric intake for at least 8 hours. Fasting glucose between 100 mg/dl to 125 mg/dl is diagnostic of prediabetes. In a patient with classic symptoms of hyperglycemia or hyperglycemic crisis, a random glucose >/= 200 mg/dl is diagnostic for diabetes. In the absence of unequivocal hyperglycemia, results should be confirmed by repeat testing. The classification and Diagnosis of Diabetes Diabetes Care 2021; 46: S19-S40. Current interpretive data was last revised 2022. Testing performed by: [address] [address] Calcium 9.9 8.5 - 10.3 mg/dL SHANTAL Comment:Testing performed by : [address] [address] Bilirubin, total 0.3 0.1 - 1.2 mg/dL SHANTAL Comment:Testing performed by : [address] [address] Protein, pl 7.2 6.5 - 8.5 g/dL SHANTAL Comment:Testing performed by : [address] [address] Albumin 4.4 3.5 - 5.0 g/dL SHANTAL Comment:Testing performed by : [address] [address] Alk phos 74 40 - 130 Units/L SHANTAL Comment:Testing performed by : [address] [address] ALT 34 7 - 55 Units/L SHANTAL Comment:Testing performed by : [address] [address] AST 24 10 - 50 Units/L SHANTAL Comment:Testing performed by : [address] [address] Blood 04/18/2024 1:41 PM SOLUTIONS MANAGER 04/18/2024 2:30 PM SOLUTIONS MANAGER us Kim Rivera MD LAB BLOOD ORDERABLE S Final Result SHANTAL [facility]8 [facility] Department [place] [address] * POCT hemoglobin A1c (04/17/2024 1:13 PM SOLUTIONS MANAGER) Hemoglobin A1C, POC 5.4 4.0 - 5.6 % Blood 04/17/2024 1:13 PM SOLUTIONS MANAGER us Kim Rivera MD POINT OF CARE TEST ORDERABLES Final Result * POCT glucose (04/17/2024 1:13 PM SOLUTIONS MANAGER) Glucose Blood, POC 87 mg/dL Blood 04/17/2024 1:13 PM SOLUTIONS MANAGER us Kim Rivera MD POINT OF CARE TEST ORDERABLES Final Result * POCT glucose (04/03/2024 12:46 PM SOLUTIONS MANAGER) Glucose, POC 103 70 - 199 mg/dL Blood 04/03/2024 12:4 6 PM SOLUTIONS MANAGER 04/03/2024 12:46 PM SOLUTIONS MANAGER us Bg Desai MD LAB POCT ORDERABLES - DEVICE F inal Result SHANTAL [facility] [place] [address] * [place] AN ELECTIVE SUPRAGLOTTIC AIRWAY, [place] AN PROCEDURE PLACEHOLDER (04/03/2024 12:14 PM SOLUTIONS MANAGER) Narrative Harpreet Smith CRNA - 04/03/2024 12:14 PM SOLUTIONS MANAGER Harpreet Smith CRNA 04/03/2024 12:15 PM Airway Patient location: OR Urgency: elective Indications for airway management: anesthesia Difficult airway: no Staff: Supervising provider: Grey Rhoades MD Placed by: METAL MOCKUP MAKER: Harpreet Smith CRNA Emergent airway documentation: Risks and benefits discussed: yes Consent obtained: yes Consent given by: patient Airway prep: Preoxygenated: yes Patient position: sniffing Mask difficulty assessment: 0 - not attempted Spontaneous ventilation during airway: absent Sedation level during airway: GA Final airway details: Final airway type: supraglottic airway Final supraglottic airway: IGel SGA size: 4 Airway seal pressure: 20 cm H2O Number of attempts: 1 Ventilation between attempts: none us Grey Rhoades MD ANESTHESIA ORDERABL ES Final Result * POCT glucose (04/03/2024 10:18 AM SOLUTIONS MANAGER) Glucose, POC 113 70 - 199 mg/dL Blood 04/03/2024 10:1 8 AM SOLUTIONS MANAGER 04/03/2024 10:18 AM SOLUTIONS MANAGER Bg Desai MD LAB POCT ORDERABLES - DEVICE F inal Result [facility] Department [place] [address] * Urine culture Urine, clean voided (03/29/2024 3:20 PM SOLUTIONS MANAGER) Report Final Report: Less than 100,000 colonies/mL (clinically insignificant growth based on current clinical standards) Comment:Testing performed by : [facility], [address] [facility], [place]., [address] Organism (CLINICALLY INSIGNIFICANT GROWTH SHANTAL Urine, clean voided 03/29/2024 3:20 PM SOLUTIONS MANAGER 03/29/2024 10:25 PM SOLUTIONS MANAGER Narrative SHANTAL CH - 04/01/2024 8:27 AM SOLUTIONS MANAGER Testing performed by [facility] Microbiology Laboratory ([phone]) Bg Desai MD LAB MICROBIOLOGY - GENERAL ORD ERABLES Final Result Performing Organization Address [facility] de Phone Number [facility] [address] [address] [facility] [place] [address] * (ABNORMAL) Albumin Creatinine Ratio, Urine (09/21/2023 1:01 PM CDT) Albumin Ur 68.9 mg/L Comment: Interpretive Data No reference range established. Current interpretive data was last revised 2018. Creatinine Ur 132.3 mg/dL [facility] Comment: Interpretive Data No reference range established. Current interpretive data was last revised 2018. Albumin Creatinine Ratio, Ur 52(H) 1 - 29 mg/g [facility] Urine 09/21/2023 1:01 PM CDT 09/21/2023 8:39 PM CDT Victor Manuel Mcdaniel MD LAB URINE ORDERABLES Final Resul t Performing Organization Address [facility] de Phone Number [facility] [address] [address] [facility] [place] [address] * PSA diagnostic (06/15/2023 2:16 PM SOLUTIONS MANAGER) PSA-Total 0.25 <=5.40 ng/mL [facility] Comment: Interpretive Data AGE SEX REFERENCE INTERVAL 0 minutes-150 years Female None 0 minutes-49 years Male None 50-59 years Male 0-3.90 60-69 years Male 0-5.40 70-79 years Male 0-6.20 80-150 years Male 0-6.20 The Callie PSA Total assay procedure was used. Results from different manufacturers or methods may not be comparable. Serial testing should be performed using the same method. Current interpretive data last revised 21. Blood (Blood, Venous) 06/15/2023 2:16 PM SOLUTIONS MANAGER 06/15/2023 8:21 PM SOLUTIONS MANAGER Tomas Hernández MD LAB BLOOD ORDERABLES Final R esult Performing Organization Address [facility] Co de Phone Number [facility] [address] [facility] Department [place] [address] * (ABNORMAL) Lipid panel (01/21/2023 3:16 PM CDT) Cholesterol 197 30 - 199 mg/dL SHANTAL Comment: Interpretive Data Ages < or = 19 years Acceptable: <170 mg/dL Borderline high: 170-199 mg/dL High: >or= 200 mg/dL Ages > or = 20 years Desirable: <200 mg/dL Borderline high: 200-239 mg/dL High: >or= 240 mg/dL Literature References: 1. Expert Panel on Integrated Guidelines for Cardiovascular Health and Risk Reduction in Children and Adolescents. Pediatrics 2011;128:S213 2. NCEP Expert Panel. Circulation 2004;110:227 Current Interpretive Data was last revised on 2018. Triglycerides 310(H) <=149 mg/dL SHANTAL Comment: Interpretive Data Ages < or = 9 years Acceptable: <75 mg/dL Borderline high: 75-99 mg/dL High: >or= 100 mg/dL Ages 10 to 20 years Acceptable: <90 mg/dL Borderline high: 90-129 mg/dL High: >or= 130 mg/dL Ages > or = 20 years Desirable: <150 mg/dL Borderline high: 150-199 mg/dL High: 200-499 mg/dL Very high: >or= 499 mg/dL Literature References: 1. Expert Panel on Integrated Guidelines for Cardiovascular Health and Risk Reduction in Children and Adolescents. Pediatrics 2011;128:S213 2. NCEP Expert Panel. Circulation 2004;110:227 Current Interpretive Data was last revised on 2018. HDL 38(L) >=40 mg/dL SHANTAL Comment: Interpretive Data Ages < or = 19 years Acceptable: >45 mg/dL Borderline low: 40-45 mg/dL Low: <40 mg/dL Ages > or = 20 years Desirable: >or= 60 mg/dL Low: <40 mg/dL Literature References: 1. Expert Panel on Integrated Guidelines for Cardiovascular Health and Risk Reduction in Children and Adolescents. Pediatrics 2011;128:S213 2. NCEP Expert Panel. Circulation 2004;110:227 Current Interpretive Data was last revised on 2018. LDL, calculated 97 <=129 mg/dL SHANTAL Comment: Interpretive Data Ages < or = 19 years Acceptable: <110 mg/dL Borderline high: 110-129 mg/dL High: >or= 130 mg/dL Ages > or = 20 years Optimal: <100 mg/dL Near optimal: 100-129 mg/dL Borderline high: 130-159 mg/dL High: >160 mg/dL Literature References: 1. Expert Panel on Integrated Guidelines for Cardiovascular Health and Risk Reduction in Children and Adolescents. Pediatrics 2011;128:S213 2. NCEP Expert Panel. Circulation 2004;110:227 Current Interpretive Data was last revised on 2018. Non-HDL Cholesterol 159 mg/dL SHANTAL THOMAS Comment: Interpretive Data Ages < or = 19 years Acceptable: <120 mg/dL Borderline high: 120-144 mg/dL High: >145 mg/dL Ages > or = 20 years When triglycerides are >200 mg/dL, Non-HDL cholesterol is a secondary target of therapy with treatment goals that are 30 mg/dL greater than the LDL cholesterol target. Literature References: 1. Expert Panel on Integrated Guidelines for Cardiovascular Health and Risk Reduction in Children and Adolescents. Pediatrics 2011;128:S213 2. NCEP Expert Panel. Circulation 2004;110:227 Current Interpretive Data was last revised on 2018. Chol/HDL ratio 5 SHANTAL Blood 01/21/2023 3:16 PM CDT 01/21/2023 10:04 PM CDT Victor Manuel Mcdaniel MD LAB BLOOD ORDERABLES Final Resul t SHANTAL [address] [facility] [place] [address] * (ABNORMAL) DIABETES EYE EXAM (10/23/2022 9:30 AM CDT) Historical Provider HEALTH MAINTENANCE Edited Result - Final * COLONOSCOPY (04/27/2022 11:17 AM SOLUTIONS MANAGER) Anatomical Region Laterality Modality Other Narrative Procedure Note Marichuy Hays MD - 04/27/2022 11:17 AM CST GI ENDOSCOPY [facility] Patient Name: Gab Braun Procedure Date: 04/27/2022 11:17AM Date of : 1960 Admit Type: Outpatient Age: 61 Gender: Male Attending MD: Marichuy Hays M.D. Room: [facility] ENDOSCOPY ROOM 3 Note Status: Finalized Procedure: Colonoscopy Indications: High risk colon cancer surveillance: Personalhistory of colonic polyps Referring MD: Hudson Tellez M.D. Providers: Marichuy Hays M.D., William Coles M.D. Medicines: Monitored Anesthesia Care Complications: No immediate complications. Estimated Blood Loss: Estimated blood loss: none. Procedure: Pre-Anesthesia Assessment: - Immediately prior to administration ofmedications, the patient was re-assessed for adequacy to receive sedatives. - The risks and benefits of the procedure and the sedation options and risks were discussed with the patient. All questions were answered and informed consent was obtained. The benefits, risks and alternatives of theprocedure and sedation were discussed and informed consentwas obtained. All questions were answered. Please referto the signed informed consent document in the medical record. The scope was passed under direct vision.The [id number] endoscope was introduced through the anus and advanced to the terminal ileum. The colonoscopy was performed without difficulty. The patient tolerated the procedure well. The qualityof the bowel preparation was fair. The quality of the bowel preparation was evaluated using the BBPS(Woodlyn Bowel Preparation Scale) with scores of: RightColon = 2 (minor amount of residual staining, smallfragments of stool and/or opaque liquid, but mucosa seenwell), Transverse Colon = 1 (portion of mucosa seen, but other areas not well seen due to staining, residual stool and/or opaque liquid) and Left Colon = 1 (portion of mucosa seen, but other areas not wellseen due to staining, residual stool and/or opaqueliquid). The total BBPS score equals 4. The quality of the bowel preparation was inadequate. The bowel preparation used was Miralax via split dose instruction. Findings: The perianal and digital rectal examinations were normal. A moderate amount of solid stool was found in the terminal ileum, interfering with visualization. A moderate amount of solid stool was found in the entire colon, interfering with visualization. Remainder of colonic mucosa was visualized well enough to rule out large lesions. A 4 mm polyp was found in the transverse colon. The polyp wassessile. The polyp was removed with a saline injection-lift technique using a cold snare. Resection and retrieval were complete. A few small-mouthed diverticula were found in the sigmoid colon. The exam was otherwise without abnormality on direct and retroflexion views. Impression: - Preparation of the colon was inadequate. - Stool in the terminal ileum. - Stool in the entire examined colon. - One 4 mm polyp in the transverse colon, removed using injection-lift and a cold snare. Resected and retrieved. - Diverticulosis in the sigmoid colon. - The examination was otherwise normal on directand retroflexion views. Recommendation: - Patient has a contact number available for emergencies. The signs and symptoms of potential delayed complications were discussed with thepatient. Return to normal activities tomorrow. Written discharge instructions were provided to thepatient. - Resume previous diet. - Continue present medications. - Await pathology results. - Repeat colonoscopy in 1 year for surveillancegiven incomplete bowel prep with extended prep - Return to referring physician as previously scheduled. Electronically signed by Marichuy Hays MD Marichuy Hays M.D. 04/27/2022 12:11:14 PM . Number of Addenda: 0 Note Initiated On: 04/27/2022 11:17 AM Recognized by the [employer] for promoting quality in endoscopy Marichuy Hays MD ENDOSCOPY PROCEDURES Final Res ult * Hepatitis panel, acute (06/28/2019 10:20 AM SOLUTIONS MANAGER) Hep A IgM Negative Negative [facility] Hep B core IgM Negative Negative [facility] Hep C Ab Negative Negative [facility] HepBsAg Nonreactive Nonreactive [facility] Blood specimen (specimen) 06/28/2019 10:20 AM SOLUTIONS MANAGER 06/28/2019 10:20 AM SOLUTIONS MANAGER Casie Shaw MD LAB MICROBIOLOGY - GENERA L ORDERABLES Final Result SHANTAL [address] [address] [place] [address] from Last 3 Months or Most Recently Relevant to Health Maintenance Insurance [employer] Address: [facility] [id number] [id number] [employer] [place] [address] [employer] Advance Directives For more information, please contact: [phone] * Full Code (Latest Code Status on File) Date Activated Date Inactivated Comments 06/23/2024 8:53 AM 06/23/2024 3:15 PM * Full Code Date Activated Date Inactivated Comments 09/29/2023 12:55 AM 09/29/2023 6:04 PM * Full Code Date Activated Date Inactivated Comments 07/10/2023 11:41 AM 07/11/2023 8:02 PM * Full Code Date Activated Date Inactivated Comments 06/11/2023 8:27 AM 06/11/2023 1:41 PM * Full Code Date Activated Date Inactivated Comments 04/27/2022 10:17 AM 04/27/2022 5:07 PM 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
--- OUTSIDE RECORDS SUMMARY | 2024-06-29 11:49 | XMS_ITS | Encounter Summary ---
Author Organization [facility] Healthcare Address [address] [place] [address] Care Team Providers Care X Ray Electronics Wiring Technician Name Role Phone Tomas Hernández MD Primary Care Provider [phone] Francisco Domínguez MD Unavailable [phone] Encounter Details Date Type Department Care Team (Late st Contact Info) Description 04/30/[address] 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 Gender Identity Not on file Sexual Orientation Not on file documented as of this encounter Plan of Treatment Scheduled Procedures Name Priority Associated Diagnoses Date/Ti me BLADDER HYDRODISTENTION IC (interstitial cystitis) CYSTOSCOPY IC (interstitial cystitis) documented as of this encounter Visit Diagnoses Not on filedocumented in this encounter Administered Medications Active Administered Medications - up to 3 most recent administrations Medication Order MAR Action Action Date Dose Rate Site tc-99m sestamibi unit dose injection 12.1 millicurie 12.1 millicurie, intravenous, Once in imaging, radiopharmaceutical, Starting on Wed04/30/17 at 0750, For 1 dose, Indications: Diagnostic RadiographyIndications:Diagnostic Radiography tc-99m sestamibi unit dose injection 33.3 millicurie 33.3 millicurie, intravenous, Once in imaging, radiopharmaceutical, Starting on Wed04/30/17 at 1040, For 1 dose, Indications: Diagnostic RadiographyIndications:Diagnostic Radiography documented in this encounter Orders Medications Ordered That Pranay ht Not Have Been Administered Count Last Ordered Date First Ordered Date tc-99m sestamibi unit dose i njection 12.1 millicurie 1 04/30/2017 tc-99m sestamibi unit dose i njection 33.3 millicurie 1 04/30/2017 documented in this encounter Care Teams [employer] Wiring Technician Relationship Specialty Start Date End Date Tomas Hernández MD PCP - General 03/19/17 Francisco Domínguez MD [address] [address] Referring Physician Internal Medicine 02/03/18 documented as of this encounter
--- OUTSIDE RECORDS SUMMARY | 2024-06-29 11:49 | XMS_ITS | Encounter Summary ---
Author Organization [facility] Address [address] [place] [address] Care Team Providers Care Harvest Worker Fruit Name Role Phone Francisco Domínguez MD Unavailable [phone] oTmas Hernández MD Primary Care Provider [phone] Encounter Details Date Type Department Care Team (Late st Contact Info) Description 11/14/2015 Abstract [facility] AT [address] [address] Jj Cody MA Social History Tobacco Use Types Packs/Day Years Used Date Smoking Tobacco: Never Alcohol Use Standard Drinks/Week Comments No 0 (1 standard drink = 0.6 oz pur e alcohol) Sex and Gender Information Value Date Recorded Sex Assigned at Not on file Legal Sex Male 11:25 PM CDT Gender Identity Not on file Sexual Orientation Not on file 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 Statin increased documented in this encounter Plan of Treatment Not on file documented as of this encounter Procedures Procedure Name Priority Date/Time Associated Diagnosis Comments CBC (OUTSIDE LAB) Routine 03/01/2019 PROSTATE SPECIFIC ANTIGEN,TOTAL Routine 03/01/2019 COMPREHENSIVE METABOLIC PANEL Routine 03/01/2019 LIPID PANEL Routine 03/01/2019 THYROXINE, FREE (FT4) Routine 03/01/2019 VITAMIN D, 25 OH Routine 03/01/2019 CK (CPK) Routine 03/01/2019 LIPID PANEL Routine 06/24/2017 HEPATIC FUNCTION PANEL Routine 03/26/2016 CBC (OUTSIDE LAB) Routine 10/22/2015 COMPREHENSIVE METABOLIC PANEL Routine 10/22/2015 LIPID PANEL Routine 10/22/2015 documented in this encounter Results * CBC (OUTSIDE LAB) (03/01/2019) Pathologist [facility] WBC 6.7 HGB 16.9 HCT 49.6 PLT 137 03/01/2019 [facility] Abstract LAB-OUTSIDE/ABSTRACTED Final Result * LIPID PANEL (03/01/2019) Pathologist [facility] CHOLESTEROL 148 HDL 33 TRIGLYCERIDES 257 NON HDL CHOLESTEROL 115 LDL (CALCULATED) 64 03/01/2019 [facility] Abstract LABORATORY Final Result * CK (CPK) (03/01/2019) Pathologist [facility] CPK 126 03/01/2019 [facility] Doc [facility] Abstract LABORATORY Final Result * (ABNORMAL) COMPREHENSIVE METABOLIC PANEL (03/01/2019) SODIUM S/P/B 141 POTASSIUM S/P/B 3.9 CO2 26 CHLORIDE S/P/B 105 GLUCOSE 121 mg/dL CALCIUM S/P/B 9.3 BUN 14 CREATININE S/P/B 0.67(A) 0.7 - 1.3 EGFR NON-AFR. AMER. 104(A) <=90 ALKALINE PHOSPHATASE S/P/B 59 ALT 62 AST 45 BILIRUBIN TOTAL S/P/B 0.6 ALBUMIN S/P/B 4.6 3.5 - 5.0 TOTAL PROTEIN S/P/B 7.1 03/01/2019 [facility] Abstract LABORATORY Final Result * VITAMIN D, 25 OH (03/01/2019) VITAMIN D 25 HYDROXY S/P/B 29 03/01/2019 [facility] Abstract LABORATORY Final Result * PROSTATE SPECIFIC ANTIGEN,TOTAL (03/01/2019) PSA 0.52 03/01/2019 [employer] [facility] LABORATORY Edited Resul t - Final * THYROXINE, FREE (FT4) (03/01/2019) FREE T4 1.02 03/01/2019 [employer] [facility] LABORATORY Final Result * LIPID PANEL (06/24/2017) CHOLESTEROL 194 HDL 24 TRIGLYCERIDES 285 NON HDL CHOLESTEROL 170 LDL (CALCULATED) 113 06/24/2017 [employer] [facility] LABORATORY Edited Resul t - Final * HEPATIC FUNCTION PANEL (03/26/2016) ALBUMIN S/P/B 4.5 3.5 - 5.0 ALKALINE PHOSPHATASE S/P/B 42 ALT 54 AST 44 BILIRUBIN DIRECT S/P/B 0.2 BILIRUBIN TOTAL S/P/B 0.5 TOTAL PROTEIN S/P/B 7.1 03/26/2016 [facility] Abstract LABORATORY Final Result * CBC (OUTSIDE LAB) (10/22/2015) WBC 4.9 HGB 15.5 HCT 43.9 PLT 213 10/22/2015 us Doc [facility] Abstract LAB-OUTSIDE/ABSTRACTED Final Result * LIPID PANEL (10/22/2015) Pathologist [facility] CHOLESTEROL 171 HDL 25 TRIGLYCERIDES 240 LDL (CALCULATED) 98 10/22/2015 us Doc [facility] Abstract LABORATORY Final Result * COMPREHENSIVE METABOLIC PANEL (10/22/2015) Pathologist [facility] SODIUM S/P/B 141 POTASSIUM S/P/B 3.8 CO2 23 CHLORIDE S/P/B 109 GLUCOSE 96 CALCIUM S/P/B 9.6 BUN 19 CREATININE S/P/B 1.03 EGFR NON-AFR. AMER. >60 ALKALINE PHOSPHATASE S/P/B 38 ALT 59 AST 43 BILIRUBIN TOTAL S/P/B 0.6 ALBUMIN S/P/B 4.5 3.5 - 5.0 TOTAL PROTEIN S/P/B 7.0 10/22/2015 us Doc [facility] Abstract LABORATORY Edited Resul t - Final documented in this encounter Visit Diagnoses Not on filedocumented in this encounter Care Teams Harvest Worker Fruit Relationship Specialty Start Date End Date Tomas Hernández MD [address] [place] [address] PCP - General FAMILY PRACTICE 11/11/15 Francisco Domínguez MD [facility]. [address] [address] [facility] Medical Specialist CARDIOVASCULAR DISEASE 11/14/15 documented as of this encounter
--- OUTSIDE RECORDS SUMMARY | 2024-06-29 11:50 | XMS_ITS | Clinical Summary ---
Author Organization [facility] Address [address] [place] [address] Care Team Providers Care Yardage Caller Name Role Phone Tomas Hernández MD Primary Care Provider [phone] Source Comments [facility],non-owned Affiliates and Associated Physician Practices is amultiple site organization consisting of ambulatory clinics and hospital sitesin [place], [place], [place] and [place]. This disclosure is being madepursuant to the Care Everywhere program and may not contain all information available regarding this patient. Last updated 18.Collect [facility] Allergies No known active allergies Medications * Be aware that medications may not be up to date on this document. Alwaysverify current medications with the patient. Medication Sig Dispensed Refills Start Date End Date Status Fish Oil Active Multiple Vitamins-Minerals (OCUVITE PRESERVISION PO) Active aspirin (ASPIRIN) 81 MG tablet Take 81 mg by mouth once daily Active rosuvastatin (CRESTOR) 10 MG tablet Take 10 mg by mouth once daily Active omeprazole (PRILOSEC) 40 MG capsule Take 40 mg by mouth daily before breakfast Active Metoprolol Succinate (TOPROL XL PO) Active Choline Fenofibrate (TRILIPIX PO) Active Albuterol Sulfate (VENTOLIN HFA IN) Active OXYCODONE ER PO Active benzonatate (TESSALON) 200 MG capsule Take 1 Cap by mouth 3 times daily 30 Cap 04/30/2016 Active Social History Tobacco Use Types Packs/Day Years Used Date Smoking Tobacco: Never Sex and Gender Information Value Date Recorded Sex Assigned at Not on file Gender Identity Not on file Sexual Orientation Not on file Last Filed Vital Signs Vital Sign Reading Time Taken Comments Blood Pressure 156/98 04/30/2016 9:37 AM REVENUE CYCLE CONSULTANT Pulse 79 04/30/2016 9:37 AM REVENUE CYCLE CONSULTANT Temperature 36.8 C (98.2 F) 04/30/2016 9:37 AM REVENUE CYCLE CONSULTANT Respiratory Rate 16 04/30/2016 9:37 AM REVENUE CYCLE CONSULTANT Oxygen Saturation 97% 04/30/2016 9:37 AM REVENUE CYCLE CONSULTANT Inhaled Oxygen Concentration - - Weight 81.6 kg (180 lb) 04/30/2016 9:37 AM REVENUE CYCLE CONSULTANT Height 165.1 cm (5' 5 ) 04/30/2016 9:37 AM REVENUE CYCLE CONSULTANT Body Mass Index 29.95 04/30/2016 9:37 AM REVENUE CYCLE CONSULTANT Plan of Treatment Health Maintenance Due Date Last Done Comments COLOGUARD (AGES 45-75) - COL ON CA SCREENING 1958 COLON MONITORING 1958 COLONOSCOPY - COLON CA SCREENING 1958 CT COLONOGRAPHY - COLON CA SCREENING 1958 Colorectal Cancer Screening 1958 FIT - COLON CA SCREENING 1958 FLEX SIG - COLON CA SCREENING 1958 MEDICARE AWV 12 MONTHS 1958 HIV SCREENING 1973 HEPATITIS C SCREENING 05/28/1976 DTAP/TDAP/TD VACCINES (1 - Tdap) 1977 PNEUMOCOCCAL VACCINE 50+ (1 of 1 - PCV) 2008 ZOSTER VACCINE (1 of 2) 2008 COVID-19 VACCINE ( - 2023-2 5 season) 2024 INFLUENZA VACCINE (#1) 2024 DEPRESSION SCREENING 05/17/2024 Respiratory Syncytial Virus (RSV) Vaccine Pt: or over 60 yrs (1 - 1-dose 75+ series) 2033 HEPATITIS B VACCINE Aged Out No longe r eligible based on patient's age to complete this topic HIB VACCINE Aged Out No longer eligi ble based on patient's age to complete this topic HPV VACCINE Aged Out No longer eligi ble based on patient's age to complete this topic MENINGOCOCCAL (Group B) VACCINE Aged Out No longer eligible based on patient's age to complete this topic MENINGOCOCCAL VACCINE Aged Out No mandeep papa eligible based on patient's age to complete this topic Care Teams Yardage Caller Relationship Specialty Start Date End Date Tomas Hernández MD [address] [place] [address] PCP - General Family Medicine 04/30/16
--- OUTSIDE RECORDS SUMMARY | 2024-06-29 11:50 | XMS_ITS | Clinical Summary ---
Author Organization [facility] Address [address] [place] [address] Care Team Providers Care Puller Over Name Role Phone Francisco Domínguez MD Unavailable [phone] Tomas Hernández MD Primary Care Provider [phone] Allergies No known active allergies Medications aspirin 81 MG tablet Take 1 tablet by mouth daily. 08/08/2012 Active Multiple Vitamins-Minera ls (PRESERVISION AREDS 2 OR) Take 1 tablet by mouth 2 (two) times daily. 08/08/2012 Active omeprazole (PRILOSEC) 40 MG capsule Take 1 capsule by mouth daily. 07/13/2013 Active albuterol sulfate HFA 108 (90 BASE) MCG/ACT inhaler Inhale 2 puffs into the lungs as needed. Active Fish Oil (OMEGA-3 FISH OIL) 1000 MG Cap Take 2,000 mg by mouth daily. 07/12/2017 Active lifitegrast (XIIDRA) 5 % ophthalmic solution Place 1 drop into both eyes 2 (two) times daily. 01/10/2018 Active tamsulosin 0.4 MG Cap TK 1 C PO QD 30 MIN AFTER THE SAME MEAL 3 02/24/2019 Active gabapentin 300 MG capsule Take 300 mg by mouth 3 (three) times daily. 02/28/2020 Active LOTEMAX 0.5 % ophthalmic gel 2 (two) times daily. 03/01/2020 Active oxyCODONE-aceta minophen 10-325 MG tablet Take 1 tablet by mouth every 4 (four) hours as needed for Pain. Active lisinopril 10 MG tablet Take 10 mg by mouth daily. 12/20/2020 Active dutasteride 0.5 MG capsule Take 0.5 mg by mouth daily. 11/28/2020 Active nabumetone 750 MG tablet Take 750 mg by mouth 2 (two) times daily. 03/12/2021 Active silodosin 8 MG Cap capsule Take 8 mg by mouth daily. 01/13/2021 Active DULoxetine 30 MG capsule Take 30 mg by mouth daily. 08/25/2021 Active phenazopyridine 200 MG tablet TAKE 1 TABLET BY MOUTH THREE TIMES DAILY NEEDED FOR BURNING OR PAIN 09/18/2021 Active solifenacin (VESICARE) 5 MG tablet Take 1 tablet by mouth daily. 04/01/2022 Active tiZANidine (ZANAFLEX) 2 MG tablet TAKE 2 TABLETS BY MOUTH TWICE DAILY NEEDED FOR MUSCLE SPASMS 12/26/2021 Active nitroglycerin (NITROSTAT) 0.[address] 1 tablet (0.4 mg total) under the tongue every 5 (five) minutes as needed for Chest Pain (If taking the 3rd dose call 911). 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 11/07/2015 Essential hypertension 11/07/2015 Mixed hyperlipidemia 11/07/2015 Immunizations Name Administration Dates Next Due Fluarix (IIV4) 03/21/2020 Influenza Adult (Generic) 06/12/2013 Family History Medical History Relation Comments Family history is positive for coronary artery d isease Other Relation Status Comments Other Social History Tobacco Use Types Packs/Day Years Used Date Smoking Tobacco: Never Smokeless Tobacco: Never Tobacco Cessation:Counseling Given: Not Answered Alcohol Use Standard Drinks/Week Comments No 0 (1 standard drink = 0.6 oz pur e alcohol) Sex and Gender Information Value Date Recorded Sex Assigned at Not on file Legal Sex Male 11:25 PM CDT Gender Identity Not on file Sexual Orientation Not on file 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 Job End 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 file Not on file Not on fi le Last Filed Vital Signs Vital Sign Reading Time Taken Comments Blood Pressure 120/80 04/13/2022 11:10 AM CRANBERRY GROWER Pulse 87 04/13/2022 11:10 AM CRANBERRY GROWER Temperature 36.6 C (97.9 F) 04/07/2022 6:03 PM CRANBERRY GROWER Respiratory Rate 18 04/07/2022 6:03 PM CRANBERRY GROWER Oxygen Saturation 98% 04/07/2022 6:03 PM CRANBERRY GROWER Inhaled Oxygen Concentration - - Weight 84.4 kg (186 lb) 04/13/2022 11:10 AM CRANBERRY GROWER Height 162.6 cm (5' 4 ) 04/13/2022 11:10 AM CRANBERRY GROWER Body Mass Index 31.93 04/13/2022 11:10 AM CRANBERRY GROWER Plan of Treatment Health Maintenance Due Date Last Done Comments ASCVD Statin 1958 Colorectal Cancer Screening Colonoscopy (10 Years) 1958 Hepatitis C 1976 DTaP, Tdap and Td Vaccines (1 - Tdap) 1977 Zoster Vaccines (1 of 2) 2008 RSV Immunization or 60+ Years (1 - Risk 60-74 years 1-dose series) 2018 ASCVD LDL 03/01/2020 03/01/2019, 0212/2017, 12/16/2016, Additional history exists Pneumococcal Vaccine: 65+ Years (2 of 2 - PPSV23 or PCV20) 06/23/2021 04/28/2021 COVID-19 Vaccine (1 - 2023- season) 2024 Influenza Adult (#1) 2024 04/28/2021, 03/21/2020, 06/12/2013 Meningococcal B Vaccine Aged Out No l onger eligible based on patient's age to complete this topic Meningococcal Vaccine Aged Out No mandeep papa eligible based on patient's age to complete this topic RSV Immunizations Under 20 Months Aged Out No longer eligible based on patient's age to complete this topic Procedures Procedure Name Priority Date/Time Associated Diagnosis Comments LIPID PANEL Routine 03/01/2019 from Last 3 Months or Most Recently Relevant to Health Maintenance Results * LIPID PANEL (03/01/2019) CHOLESTEROL 148 HDL 33 TRIGLYCERIDES 257 NON HDL CHOLESTEROL 115 LDL (CALCULATED) 64 03/01/2019 us Doc [facility] Abstract LABORATORY Final Result from Last 3 Months or Most Recently Relevant to Health Maintenance Insurance [employer] Care Teams Puller Over Relationship Specialty Start Date End Date Tomas Hernández MD [address] [place] [address] PCP - General FAMILY PRACTICE 11/11/15 Francisco Dom[facility]nguez MD [facility] [place] [address] Sima Director Digital Sales CARDIOVASCULAR DISEASE 11/14/15
--- OUTSIDE RECORDS SUMMARY | 2024-06-29 11:50 | XMS_ITS | Encounter Summary ---
Author Organization [facility] Address [address] [place] [address] Care Team Providers Care Patient Appointment Coordinator Name Role Phone Tomas Hernández MD Primary Care Provider [phone] Encounter Details Date Type Department Care Team (Late st Contact Info) Description 01/04/2024 Lab Requisition [facility] - DermPath Lab [address] [facility] [place] [address] Casie Shaw MD [address] [facility] [address] [place] [address] Social History Tobacco Use Types Packs/Day Years Used Date Smoking Tobacco: Never Sex and Gender Information Value Date Recorded Sex Assigned at Not on file Gender Identity Not on file Sexual Orientation Not on file documented as of this encounter Plan of Treatment Not on file documented as of this encounter Procedures Procedure Name Priority Date/Time Associated Diagnosis Comments DERMATOPATHOLOGY Routine 01/04/2024 10:3 2 AM CDT documented in this encounter Results * DERMATOPATHOLOGY (01/04/2024 10:32 AM CDT) Case Report Dermatopathology Report Case: [id number] Authorizing Provider: Casie Shaw MD Collected: 01/04/2024 10:32 AM Ordering Location: [facility] - Received: 01/04/2024 03:14 PM DermPath Lab Pathologist: Bel Duran MD Specimens: A) - Skin, right shoulder B) - Skin, left arm 08/22/202 4 3:42 PM T DERMATOPATHOLOGY LABORATORY Final Diagnosis Specimen A. SKIN, right shoulder: BASAL CELL CARCINOMA, NODULAR TYPE (C44.612) Specimen B. SKIN, left arm: SOLAR LENTIGO (L81.4) ACTINIC KERATOSIS, PIGMENTED (L57.0) (see microscopic description) 3:42 PM T DERMATOPATHOLOGY LABORATORY Clinical History A: R/O NMSC vs AD/PSO B: R/O ISK vs MM Irregular border irregular color brown papule 3:42 PM CDT DERMATOPATHOLOGY LABORATORY Gross Description Specimen A: Received is one formalin filled container labeled with the patient's name and designated right shoulder. The specimen consists of a shave biopsy measuring 7x6x1 mm. Jar 0. Specimen B: Received is one formalin filled container labeled with the patient's name and designated left arm. The specimen consists of a shave biopsy measuring 38i09j0 mm. Jar 0. 3:42 PM [facility] DERMATOPATHOLOGY LABORATORY Microscopic Description Specimen A. SKIN, right shoulder: Within the dermis there are aggregates of basaloid cells with a high nuclear to cytoplasmic ratio and peripheral palisading. Specimen B. SKIN, left arm: There is orthokeratosis. There is a slight increase in epidermal thickness with lentiginous buds of hyperpigmented keratinocytes. In the dermis, there is basophilic degeneration of elastic fibers. Additionally, there are atypical keratinocytes in a disorderly arrangement in the lower portions of the epidermis. There is prominent pigmentation in some of the keratinocytes. The Ki67 proliferation index is slightly increased in the lower portions of the epidermis. Mart1/MelanA does not highlight evidence of an atypical melanocytic proliferation. 3:42 PM CDT DERMATOPATHOLOGY LABORATORY Disclaimer An external and internal positive and negative controls are appropriate for the histochemical, immunohistochemical and immunofluorescence stain(s) in this case (if any), except where stated explicitly. The performance characteristics of the stain(s) cited in this report were developed and its performance characteristic determined by the Dermatopathology Laboratory at [facility], directed by Dr. Sapna Keith. These tests need not be, and therefore are not, approved by the [place] Food and Drug Administration. The tests are used for clinical purposes. Billing Codes Specimen Charges Stain Charges 50862 15122 1 1 46919 45854 1 1 4 3:42 PM CDT DERMATOPATHOLOGY LABORATORY Embedded Images 4 3:42 PM CDT DERMATOPATHOLOGY LABORATORY Pathology/Cytology TISSUE SPECIMEN FROM SKIN / Unknown 01/04/2024 10:32 AM CDT 01/04/2024 3:14 PM CDT Miscellaneous samples (specimen) TISSUE SPECIMEN FROM SKIN / Unknown 01/04/2024 10:32 AM CDT 01/04/2024 3:14 PM CDT Casie Shaw MD LAB - PATHOLOGY/CYTO LOGY ORDERABLES Performing Organization Address City/State/[facility] Co de Phone Number DERMATOPATHOLOGY LABORATORY [facility] - Department of Dermatology [facility] Medicine [address] [place] [address], [address] [phone] documented in this encounter Visit Diagnoses Not on filedocumented in this encounter Care Teams Patient Appointment Coordinator Relationship Specialty Start Date End Date Tomas Hernández MD [address] [place] [address] PCP - General Family Medicine 04/30/16 documented as of this encounter
--- OUTSIDE RECORDS SUMMARY | 2024-06-29 11:50 | XMS_ITS | Encounter Summary ---
Author Organization [facility] Address [address] [place] [address] Care Team Providers Care Chrome Tanning Drum Operator Name Role Phone Tomas Hernández MD Primary Care Provider [phone] Encounter Details Date Type Department Care Team (Late st Contact Info) Description 09/28/2019 Lab Requisition [facility] DermPath Lab [address] [facility] [place] [address] Casie Shaw MD [address] [facility] 3 [place] [address] Social History Tobacco Use Types Packs/Day Years Used Date Smoking Tobacco: Never Sex and Gender Information Value Date Recorded Sex Assigned at Not on file Gender Identity Not on file Sexual Orientation Not on file documented as of this encounter Plan of Treatment Not on file documented as of this encounter Procedures Procedure Name Priority Date/Time Associated Diagnosis Comments DERMATOPATH TECHNICAL REPORT Routine 09/27/2019 12:00 AM CDT documented in this encounter Results * DERMATOPATH TECHNICAL REPORT (09/27/2019 12:00 AM CDT) Case Report Dermatopathology Report Case: [id number] Authorizing Provider: Casie Shaw MD Collected: 09/27/2019 12:00 AM Ordering Location: [facility] DermPath Lab Received: 09/28/2019 06:40 AM Pathologist: Shaniqua Duran MD Specimen: Skin, right arm 0 12:20 PM CDT DERMATOPATHOLOGY LABORATORY Addendum 1 At the request of the diagnosing physician, technical component for [place]/MelanA was performed at [facility] Dermatopathology Laboratory. 0 12:20 PM CDT DERMATOPATHOLOGY LABORATORY Addendum electronically signed by Shaniqua Duran MD on 10/02/2019 at 12:20 PM Clinical History AK vs SCC vs PSO, non-healing, eroded papule. 0 12:20 PM CDT DERMATOPATHOLOGY LABORATORY Gross Description Specimen A: Received is one formalin filled container labeled with the patient's name and designated right arm. The specimen consists of a shave measuring [id number]. Jar 0. [facility] Dermatopathology Laboratory performed the technical component only. 0 12:20 PM CDT DERMATOPATHOLOGY LABORATORY Embedded Images 0 12:20 PM CDT DERMATOPATHOLOGY LABORATORY DISCLAIMER An external and internal positive and negative controls are appropriate for the histochemical, immunohistochemical and immunofluorescence stain(s) in this case (if any), except where stated explicitly. The performance characteristics of the stain(s) cited in this report were developed and its performance characteristic determined by the Dermatopathology Laboratory at [facility], directed by Dr. Sapna Keith. These tests need not be, and therefore are not, approved by the [place] Food and Drug Administration. The tests are used for clinical purposes. 0 12:20 PM CDT DERMATOPATHOLOGY LABORATORY Pathology/Cytolog y TISSUE SPECIMEN FROM SKIN / Unknown 09/27/2019 09/28/2019 6:40 AM CDT Casie Shaw MD LAB - PATHOLOGY/CYTO LOGY ORDERABLES DERMATOPATHOLOGY LABORATORY [facility] - Department of Dermatology Support Services Rep Center/[place] [address], [facility] [phone] documented in this encounter Visit Diagnoses Not on filedocumented in this encounter Care Teams Chrome Tanning Drum Operator Relationship Specialty Start Date End Date Tomas Hernández MD [address] [place] [phone] PCP - General Family Medicine 04/30/16 documented as of this encounter
--- OUTSIDE RECORDS SUMMARY | 2024-06-29 11:50 | XMS_ITS | Encounter Summary ---
Author Organization [facility] Address [address] [place] [address] Care Team Providers Care Order Entry Name Role Phone Tomas Hernández MD Primary Care Provider [phone] Encounter Details Date Type Department Care Team (Late st Contact Info) Description 06/09/[address] [facility] DermPath Lab [address] [facility] [place] [address] Casie Shaw MD [address] [facility] [address] [place] [address] Social History Tobacco Use Types Packs/Day Years Used Date Smoking Tobacco: Never Sex and Gender Information Value Date Recorded Sex Assigned at Not on file Gender Identity Not on file Sexual Orientation Not on file documented as of this encounter Plan of Treatment Not on file documented as of this encounter Procedures Procedure Name Priority Date/Time Associated Diagnosis Comments DERMATOPATHOLOGY Routine 06/08/2019 12:0 0 AM RETAIL RECEIVING CLERK documented in this encounter Results * DERMATOPATHOLOGY (06/08/2019 12:00 AM RETAIL RECEIVING CLERK) Case Report Dermatopathology Report Case: [id number] Authorizing Provider: Casie Shaw MD Collected: 06/08/2019 12:00 AM Ordering Location: [facility] DermPath Lab Received: 06/09/2019 09:30 AM Pathologist: Aisha Perkins MD Specimens: A) - Skin, right ant neck B) - Skin, left back 0 1:31 PM RETAIL RECEIVING CLERK DERMATOPATHOLOGY LABORATORY Final Diagnosis Specimen A. SKIN, right ant neck: ACTINIC KERATOSIS, ERODED (L57.0) Specimen B. SKIN, left back: ACTINIC KERATOSIS (L57.0) 0 1:31 PM [facility] DERMATOPATHOLOGY LABORATORY Clinical History A-B: R/O BCC, SCC, AK. [place] papule. 0 1:31 PM [facility] DERMATOPATHOLOGY LABORATORY Gross Description Specimen A: Received is one formalin filled container labeled with the patient's name and designated right ant neck. The specimen consists of a shave measuring [id number]. Jar 0. Specimen B: Received is one formalin filled container labeled with the patient's name and designated left back. The specimen consists of a shave measuring [id number]. Jar 0. 0 1:31 PM [facility] DERMATOPATHOLOGY LABORATORY Microscopic Description Specimen A. SKIN, right ant neck: There is alternating orthokeratosis and parakeratosis. The epidermis is focally eroded. Along the undersurface of the epidermis, there are buds of atypical keratinocytes in a disorderly arrangement. Specimen B. SKIN, left back: There is focal parakeratosis. The lower half of the epidermis shows disorderly maturation of keratinocytes with nuclear pleomorphism. 0 1:31 PM [facility] DERMATOPATHOLOGY LABORATORY Disclaimer An external and internal positive and negative controls are appropriate for the histochemical, immunohistochemical and immunofluorescence stain(s) in this case (if any), except where stated explicitly. The performance characteristics of the stain(s) cited in this report were developed and its performance characteristic determined by the Dermatopathology Laboratory at [facility], directed by Dr. Sapna Keith. These tests need not be, and therefore are not, approved by the [place] Food and Drug Administration. The tests are used for clinical purposes. Billing Codes Specimen Charges Stain Charges 99903 47005 1 1 0 1:31 PM [facility] DERMATOPATHOLOGY LABORATORY Embedded Images 0 1:31 PM [facility] DERMATOPATHOLOGY LABORATORY Pathology/Cytology TISSUE SPECIMEN FROM SKIN / Unknown 06/08/2019 06/09/2019 9:30 AM RETAIL RECEIVING CLERK Miscellaneous samples (specimen) TISSUE SPECIMEN FROM SKIN / Unknown 06/08/2019 06/09/2019 9:30 AM RETAIL RECEIVING CLERK Casie Shaw MD LAB - PATHOLOGY/CYTO LOGY ORDERABLES DERMATOPATHOLOGY LABORATORY [facility] - Department of Dermatology [address] [place] [address], 5th Floor Lab [address] [phone] documented in this encounter Visit Diagnoses Not on filedocumented in this encounter Care Teams Order Entry Relationship Specialty Start Date End Date Tomas Hernández MD [address] [place] [address] PCP - General Family Medicine 04/30/16 documented as of this encounter
--- OUTSIDE RECORDS SUMMARY | 2024-06-29 11:50 | XMS_ITS | Patient Health Summary ---
Author Organization [facility] [place] Address [address] [facility] [place] [address] Care Team Providers Care Extermination Supervisor Name Role Phone Tomas Hernández MD Primary Care Provider Note from [facility],non-owned Affiliates and Associated Physician Practices is amultiple site organization consisting of ambulatory clinics and hospital sitesin [place], [place], [place] and [place]. This disclosure is being madepursuant to the Care Everywhere program and may not contain all information available regarding this patient. Last updated 18.[facility] [place] Allergies No known active allergies Medications * Be aware that medications may not be up to date on this document. Alwaysverify current medications with the patient. * Fish Oil * Multiple Vitamins-Minerals (OCUVITE PRESERVISION PO) * aspirin (ASPIRIN) 81 MG tablet Take 81 mg by mouth once daily * rosuvastatin (CRESTOR) 10 MG tablet Take 10 mg by mouth once daily * omeprazole (PRILOSEC) 40 MG capsule Take 40 mg by mouth daily before breakfast * Metoprolol Succinate (TOPROL XL PO) * Choline Fenofibrate (TRILIPIX PO) * Albuterol Sulfate (VENTOLIN HFA IN) * OXYCODONE ER PO * benzonatate (TESSALON) 200 MG capsule(Started 04/30/2016) Take 1 Cap by mouth 3 times daily Social History Tobacco Use Types Packs/Day Years Used Date Smoking Tobacco: Never Sex and Gender Information Value Date Recorded Sex Assigned at Not on file Gender Identity Not on file Sexual Orientation Not on file Last Filed Vital Signs Vital Sign Reading Time Taken Comments Blood Pressure 156/98 04/30/2016 9:37 AM LIBRARY ATTENDANT Pulse 79 04/30/2016 9:37 AM LIBRARY ATTENDANT Temperature 36.8 C (98.2 F) 04/30/2016 9:37 AM LIBRARY ATTENDANT Respiratory Rate 16 04/30/2016 9:37 AM LIBRARY ATTENDANT Oxygen Saturation 97% 04/30/2016 9:37 AM LIBRARY ATTENDANT Inhaled Oxygen Concentration - - Weight 81.6 kg (180 lb) 04/30/2016 9:37 AM LIBRARY ATTENDANT Height 165.1 cm (5' 5 ) 04/30/2016 9:37 AM LIBRARY ATTENDANT Body Mass Index 29.95 04/30/2016 9:37 AM LIBRARY ATTENDANT Procedures * DERMATOPATHOLOGY(Performed 01/04/2024) * DERMATOPATHOLOGY(Performed 11/05/2022) * DERMATOPATH TECHNICAL REPORT(Performed 09/27/2019) * DERMATOPATHOLOGY(Performed 06/08/2019) * DERMATOPATHOLOGY(Performed 11/04/2017) * DERMATOPATHOLOGY(Performed 01/26/2013) Results * DERMATOPATHOLOGY (01/04/2024 10:32 AM CDT) Only the most recent of5 resultswithin the time period is included. Case Report Dermatopathology Report Case: [id number] Authorizing Provider: Casie Shaw MD Collected: 01/04/2024 10:32 AM Ordering Location: [facility] - Received: 01/04/2024 03:14 PM DermPath Lab Pathologist: Bel Duran MD Specimens: A) - Skin, right shoulder B) - Skin, left arm 4 3:42 PM CDT DERMATOPATHOLOGY LABORATORY Final Diagnosis Specimen A. SKIN, right shoulder: BASAL CELL CARCINOMA, NODULAR TYPE (C44.612) Specimen B. SKIN, left arm: SOLAR LENTIGO (L81.4) ACTINIC KERATOSIS, PIGMENTED (L57.0) (see microscopic description) 4 3:42 PM CDT DERMATOPATHOLOGY LABORATORY Clinical History A: R/O NMSC vs AD/PSO B: R/O ISK vs MM Irregular border irregular color brown papule 4 3:42 PM CDT DERMATOPATHOLOGY LABORATORY Gross Description Specimen A: Received is one formalin filled container labeled with the patient's name and designated right shoulder. The specimen consists of a shave biopsy measuring 7x6x1 mm. Jar 0. Specimen B: Received is one formalin filled container labeled with the patient's name and designated left arm. The specimen consists of a shave biopsy measuring 23z44f0 mm. Jar 0. 3:42 PM T DERMATOPATHOLOGY LABORATORY Microscopic Description Specimen A. SKIN, [...] of an atypical melanocytic proliferation. 3:42 PM T DERMATOPATHOLOGY LABORATORY Disclaimer An external and internal positive and negative controls are appropriate for the histochemical, immunohistochemical and immunofluorescence stain(s) in this case (if any), except where stated explicitly. The performance characteristics of the stain(s) cited in this report were developed and its performance characteristic determined by the Dermatopathology Laboratory at [facility], directed by Dr. Sapna Keith. These tests need not be, and therefore are not, approved by the [place] Food and Drug Administration. The tests are used for clinical purposes. Billing Codes Specimen Charges Stain Charges 78447 74824 1 1 15037 28111 1 1 3:42 PM CDT DERMATOPATHOLOGY LABORATORY Embedded Images 3:42 PM CDT DERMATOPATHOLOGY LABORATORY Pathology/Cytology TISSUE SPECIMEN FROM SKIN / Unknown 01/04/2024 10:32 AM CDT 01/04/2024 3:14 PM CDT Miscellaneous samples (specimen) TISSUE SPECIMEN FROM SKIN / Unknown 01/04/2024 10:32 AM CDT 01/04/2024 3:14 PM CDT Casie Shaw MD LAB - PATHOLOGY/CYTO LOGY ORDERABLES DERMATOPATHOLOGY LABORATORY [facility] - Department of Dermatology [address], [address] [phone] * DERMATOPATH TECHNICAL REPORT (09/27/2019 12:00 AM CDT) Case Report Dermatopathology Report Case: [id number] Authorizing Provider: Casie Shaw MD Collected: 09/27/2019 12:00 AM Ordering Location: [facility] DermPath Lab Received: 09/28/2019 06:40 AM Pathologist: Sahniqua Duran MD Specimen: Skin, right arm 0 12:20 PM CDT DERMATOPATHOLOGY LABORATORY Addendum 1 At the request of the diagnosing physician, technical component for [place]/MelanA was performed at [facility] Dermatopathology Laboratory. 0 12:20 PM CDT DERMATOPATHOLOGY LABORATORY Addendum electronically signed by Shaniqua Duran MD on 10/02/2019 at 12:20 PM Clinical History AK vs SCC vs PSO, non-healing, eroded papule. 0 12:20 PM CDT DERMATOPATHOLOGY LABORATORY Gross Description Specimen A: Received is one formalin filled container labeled with the patient's name and designated right arm. The specimen consists of a shave measuring [id number]. Jar 0. [facility] Dermatopathology Laboratory performed the technical component only. [...] characteristic determined by the Dermatopathology Laboratory at [facility], directed by Dr. Sapna Keith. These tests need not be, and therefore are not, approved by the [place] Food and Drug Administration. The tests are used for clinical purposes. 0 12:20 PM CDT DERMATOPATHOLOGY LABORATORY Pathology/Cytolog y TISSUE SPECIMEN FROM SKIN / Unknown 09/27/2019 09/28/2019 6:40 AM CDT Casie Shaw MD LAB - PATHOLOGY/CYTO LOGY ORDERABLES DERMATOPATHOLOGY LABORATORY [facility] - Department of Dermatology [employer] Center/[address] [phone] Care Teams Extermination Supervisor Relationship Specialty Start Date End Date Tomas Hernández MD [address] [place] [address] PCP - General Family Medicine 04/30/16
--- OUTSIDE RECORDS SUMMARY | 2024-06-29 11:50 | XMS_ITS | Encounter Summary ---
Author Organization [facility] Address [address] [place] [address] Care Team Providers Care Supervisor Grading Name Role Phone Tomas Hernández MD Primary Care Provider [phone] Francisco Domínguez MD Unavailable [phone] Reason for Visit * Reason Onset Date Comments Pre Arrival 03/02/2022 Encounter Details Date Type Department Care Team (Late st Contact Info) Description 03/02/2022 Telephone [facility] [address] [facility] 1st [place] [address] Sapna Sosa RN Pre Arrival Social History Tobacco Use Types Packs/Day Years Used Date Smoking Tobacco: Never Smokeless Tobacco: Never Alcohol Use Standard Drinks/Week Comments No 0 (1 standard drink = 0.6 oz pur e alcohol) AUDIT-C Answer Date Recorded Q1: How often do you have a drink containing alcohol? Never 03/06/2022 Q2: How many drinks containi ng alcohol do you have on a typical day when you are drinking? Patient does not drink Q3: How often do you have si x or more drinks on one occasion? Never 03/06/2022 Sex and Gender Information Value Date Recorded Sex Assigned at Not on file Legal Sex Male 2:12 AM MAGNETOMETER OPERATOR Gender Identity Not on file Sexual Orientation Not on file documented as of this encounter Plan of Treatment Scheduled Procedures Name Priority Associated Diagnoses Date/Ti me BLADDER HYDRODISTENTION IC (interstitial cystitis) CYSTOSCOPY IC (interstitial cystitis) documented as of this encounter Goals Goal Patient Goal Type Associated Problems Recent Progress Patient-Stated? Author [facility] Fall Prevention Care Plan Chronic Care Management No change(04/15 9:53 AM MAGNETOMETER OPERATOR) No Chani Vela RN Note: Problem: Falls Goals: 1. Maintain strength and balance as able 2. Prevent falls and fractures 3. Maximize safety of living environment Strategies: - Educate on fall prevention and follow-up as needed - Recommend activity/exercise program - Refer to allied health as needed - Recommend healthy lifestyle strategies and compensatory methods as needed [facility] Chronic Pain Care Plan Chronic Care Management No change(04/15 9:53 AM MAGNETOMETER OPERATOR) No Chani Vela RN Note: Problem: Chronic Pain Goals: 1. Minimize further functional decline 2. Maximize quality of life 3. Control pain Strategies: - Activity/exercise program recommendation - Conservative stepwise pain medicine strategy with multi-disciplinary approach - Recommend healthy lifestyle strategies and compensatory methods as needed documented as of this encounter Visit Diagnoses Not on filedocumented in this encounter Care Teams Supervisor Grading Relationship Specialty Start Date End Date Tomas Hernández MD PCP - General 03/19/17 Francisco Domínguez MD [address] [address] Referring Physician Internal Medicine 02/03/18 documented as of this encounter
--- OUTSIDE RECORDS SUMMARY | 2024-06-29 11:50 | XMS_ITS | Encounter Summary ---
Author Organization [facility] Address [address] [place] [address] Care Team Providers Care Film Examiner Name Role Phone Tomas Hernández MD Primary Care Provider Encounter Details Date Type Department Care Team (Late st Contact Info) Description 11/05/2022 Lab Requisition [facility] - DermPath Lab [address] [facility], [place] [address] Casie Shaw MD [address] [facility] [address] [place] [address] Social History Tobacco Use Types Packs/Day Years Used Date Smoking Tobacco: Never Sex and Gender Information Value Date Recorded Sex Assigned at Not on file Gender Identity Not on file Sexual Orientation Not on file documented as of this encounter Plan of Treatment Not on file documented as of this encounter Procedures Procedure Name Priority Date/Time Associated Diagnosis Comments DERMATOPATHOLOGY Routine 11/05/2022 2:23 PM CDT documented in this encounter Results * DERMATOPATHOLOGY (11/05/2022 2:23 PM CDT) Case Report Dermatopathology Report Case: [id number] Authorizing Provider: Casie Shaw MD Collected: 11/05/2022 02:23 PM Ordering Location: [facility] DermPath Lab Received: 11/06/2022 01:27 PM Pathologist: Shaniqua Duran MD Specimen: Skin, left forearm 06/26/202 3 12:49 PM CDT DERMATOPATHOLOGY LABORATORY Final Diagnosis Specimen A. SKIN, left forearm: BENIGN VERRUCOUS KERATOSIS (L82.1) 3 12:49 PM CDT DERMATOPATHOLOGY LABORATORY Clinical History PN vs. SCC [place] Papule 3 12:49 PM CDT DERMATOPATHOLOGY LABORATORY Gross Description Specimen A: Received is one formalin filled container labeled with the patient's name and designated left forearm. The specimen consists of a shave biopsy measuring 10x8x3 mm. Jar 0. 12:49 PM CDT DERMATOPATHOLOGY LABORATORY Microscopic Description Specimen A. SKIN, left forearm: Sections show hyperkeratosis, papillomatosis, hypergranulosis, and acanthosis. These histological findings can be seen in a verruca vulgaris or a seborrheic keratosis. 3 12:49 PM CDT DERMATOPATHOLOGY LABORATORY Disclaimer An external and internal positive and negative controls are appropriate for the histochemical, immunohistochemical and immunofluorescence stain(s) in this case (if any), except where stated explicitly. The performance characteristics of the stain(s) cited in this report were developed and its performance characteristic determined by the Dermatopathology Laboratory at [facility], directed by Dr. Sapna Keith. These tests need not be, and therefore are not, approved by the [place] Food and Drug Administration. The tests are used for clinical purposes. Billing Codes Specimen Charges Stain Charges 09432 1 3 12:49 PM CDT DERMATOPATHOLOGY LABORATORY Embedded Images 3 12:49 PM CDT DERMATOPATHOLOGY LABORATORY Pathology/Cytolo gy TISSUE SPECIMEN FROM SKIN / Unknown 11/05/2022 2:23 PM CDT 11/06/2022 1:27 PM CDT Casie Shaw MD LAB - PATHOLOGY/CYTO LOGY ORDERABLES DERMATOPATHOLOGY LABORATORY [facility] - Department of Dermatology [address], [address] [phone] documented in this encounter Visit Diagnoses Not on filedocumented in this encounter Care Teams Film Examiner Relationship Specialty Start Date End Date Tomas Hernández MD [address] [place] [address] PCP - General Family Medicine 04/30/16 documented as of this encounter
--- OUTSIDE RECORDS SUMMARY | 2024-06-29 11:50 | XMS_ITS | Clinical Summary ---
Author Organization [facility] Address [address] [place] [address] Care Team Providers Care Dining Host Name Role Phone Tomas Hernández MD Primary Care Provider [phone] Francisco Domínguez MD Unavailable [phone] Allergies No known active allergies Medications omeprazole [...] or shortness of breath 6 Active omega 3-hwh-cdr-fish oil 1,000 mg (120 mg-180 mg) capsuleIndicati [...] 06/01/2023 Assessment & Plan (04/17/2024 2:06 PM RETAIL SUPPORT SPECIALIST): Chronic, well controlled Continue lisinopril and metoprolol Assessment & Plan (09/21/2023 12:41 PM CDT): Chronic, well-controlled. Continue lisinopril. Update microalbumin Assessment & Plan (06/01/2023 12:01 PM RETAIL SUPPORT SPECIALIST): Chronic problem. Controlled on current lisinopril 10mg daily, metoprolol XL 50mg nightly Hepatic cirrhosis 05/04/2023 Benign colon polyp 05/04/2023 IC (intermittent claudication) 12/31/2022 Syncope and collapse 07/23/2022 Type 2 diabetes mellitus wit h hyperglycemia, without long-term current use of insulin 07/23/2022 Assessment & Plan (04/17/2024 2:05 PM RETAIL SUPPORT SPECIALIST): Chronic, overall well controlled with hemoglobin A1c [...] discussed Assessment & Plan (06/01/2023 1:18 PM RETAIL SUPPORT SPECIALIST): Chronic problem. Currently not taking any medications. [...] that time. Aware that he can call/send [employer] message if he changes his mind about [...] analog. Assessment & Plan (07/23/2022 4:32 PM RETAIL SUPPORT SPECIALIST): Hba1c was Lab Results Component Value Date [...] (09/17/2021): Added automatically from request for surgery [id number] Pelvic pain 01/24/2021 Overview (01/24/2021): Added automatically from request for surgery [id number] Benign prostatic hyperplasia 01/09/2021 Healthcare maintenance 02/15/2018 Assessment & Plan (02/15/2018 8:19 AM CDT): He reports having had a colonoscopy about 4 years ago removing small polyps. Elevated liver enzymes 02/11/2018 Plantar fasciitis 02/03/2018 Overview (02/03/2018): Added automatically from request for surgery [id number] S/P CABG (coronary artery bypass graft) 06/22/19 17 Essential hypertension 11/07/2015 Hyperlipidemia associated with type 2 diabetes nohelia davalos 11/07/2015 Assessment & Plan (04/17/2024 2:03 PM RETAIL SUPPORT SPECIALIST): Continue statin therapy Assessment & Plan (09/21/2023 12:41 PM CDT): Chronic, well-controlled. Continue statin therapy with rosuvastatin Assessment & Plan (06/01/2023 1:15 PM RETAIL SUPPORT SPECIALIST): Chronic problem. Managed by cardiology. Currently taking Rosuvastatin 40mg. Last lipid panel: 01/21/23 LDL=97, RO=775. Assessment & Plan (01/21/2023 2:52 PM CDT): LDL goal under 100 Diet and exercise Continue Rosuvastatin Update lipid profile Atherosclerotic heart diseas e of [place] coronary artery without angina pectoris 05/21/2008 Dizziness and giddiness 03/05/2008 Family history of ischemic h eart disease and other diseases of the circulatory system 03/05/2008 Encounters Date Type Department Care Team Description 5 10:07 AM RETAIL SUPPORT SPECIALIST Anesthesia Event [facility] [address] [place] [address] Agnes Ferrer MD 5 10:00 AM RETAIL SUPPORT SPECIALIST - 5 10:30 AM RETAIL SUPPORT SPECIALIST Surgery [facility] [address] [place] [address] Enriqueta Pardo MD ESOPHAGOGASTRODUODENOSCOPY 5 8:33 AM RETAIL SUPPORT SPECIALIST - 5 11:10 AM RETAIL SUPPORT SPECIALIST Hospital Encounter [facility] [address] [place] [address] Enriqueta Pardo MD Discharge Disposition: Discharge to home or self care 5 Telephone [facility] Specialty Services [address] [place] [address] Zarina Mauro, NATHALIE GI PROCEDURE 7 DAY PRE CALL 5 Telephone [facility] Urology [address] [facility] Medical Office Building [address] [place] [phone] Bg Desai MD 4 Telephone [facility] Specialty Services [address] [place] [phone] Miscellaneous , Not In File 4 11:59 PM RETAIL SUPPORT SPECIALIST Anesthesia Event [facility] [address] [facility] [address] [place] [address] Joseph Vallejo MD Terkonda, Raghu P., MD 4 Telephone [facility] Gastroenterology [address] [facility] Advanced Medicine 12th [place] [address] [place] [phone] Kusum Bansal 4 Telephone [facility] Specialty Services [facility] [place] [address] Drea Ragland RN GI Preprocedure [address] [facility] Cardiology [address] [facility] [address] [place] [address] Joseph Lockwood MD Med Refill 4 Telephone [facility] [address] [place] [address] [address] [place] [phone] Kim Huerta MD Med Refill 4 3:00 PM RETAIL SUPPORT SPECIALIST [facility] Urology [address] [facility] 11th [place] [address] [place] [phone] Cici Contreras MD Clear cell renal cell carcinoma, left (HCC) (Primary Dx); Interstitial cystitis 4 1:55 PM RETAIL SUPPORT SPECIALIST - 4 11:59 PM RETAIL SUPPORT SPECIALIST Hospital Encounter [facility] Medical Office Building [address] [place] [address] Clear cell renal cell carcinoma, left (HCC) Discharge Disposition: Discharge to home or self care 4 1:35 PM RETAIL SUPPORT SPECIALIST Lab [facility] Lab [facility] [place] [address] Type 2 diabetes mellitus wit h hyperglycemia, without long-term current use of insulin (HCC); Vitamin D deficiency 4 1:15 PM RETAIL SUPPORT SPECIALIST Office Visit [facility] Diabetes and Endocrinology [address] [place] [phone] Kim Huerta MD Type 2 diabetes mellitus with hyperglycemia, without long-term current use of insulin (HCC) (Primary Dx); Hypertension associated with diabetes (HCC); Hyperlipidemia associated with type 2 diabetes mellitus (HCC); Vitamin D deficiency 4 Telephone [facility] Diabetes and Endocrinology [address] [place] [phone] Kim Huerta MD PCP Callback Request - Patient 4 12:15 PM RETAIL SUPPORT SPECIALIST - 4 1:30 PM RETAIL SUPPORT SPECIALIST Surgery [facility] Operating Room 1 [place] [phone] gB Desai MD BLADDER HYDRODISTENTION: KENALOG INJECTION FULGURATION OF HUNNER LESIONS 4 11:53 AM RETAIL SUPPORT SPECIALIST Anesthesia Event [facility] Operating Room 1 [place] [phone] Grey Rhoades MD Horton, Cheryl Renee Hill, NP 4 9:11 AM RETAIL SUPPORT SPECIALIST - 4 2:08 PM RETAIL SUPPORT SPECIALIST Hospital Encounter [facility] Operating Room 1 [place] [phone] Bg Desai MD IC (interstitial cystitis) (Primary Dx) Discharge Disposition: Discharge to home or self care 4 3:20 PM RETAIL SUPPORT SPECIALIST - 4 11:59 PM RETAIL SUPPORT SPECIALIST Hospital Encounter [address] [address] Interstitial cystitis Discharge Disposition: Discharge to home or self care 4 3:15 PM RETAIL SUPPORT SPECIALIST Lab [facility] Outpatient Lab at [address] [phone] from Last 3 Months Immunizations Name Administration Dates Next Due Influenza, Quadrivalent, Rec ombinant, Egg Free, Preservative Free, Intramuscular 04/28/2021 Influenza, Quadrivalent, Spl it, Preservative Free, Intramuscular 03/21/2020 Influenza, Split 06/12/2013 Pneumococcal Conjugate PCV 13 04/28/2021 Surgical History Surgery Date Site/Laterality Comments CORONARY ARTERY BYPASS GRAFT 05/17/2010 - 05/16/2011 CABG x5 NECK SURGERY 05/17/2014 - 05/16/2015 C5-6, good ROM SHOULDER ARTHROSCOPY W/ ROTA TOR CUFF REPAIR right x 3, left x 2; with labrum and bicep tendon repair- last one 2007 WISDOM TOOTH EXTRACTION over 20 years ago KNEE ARTHROSCOPY Left x 2, 1991 and 1993 OTHER SURGICAL HISTORY 01/15/2021 - 02/13/2021 pyelogram CYSTOSCOPY 06/17/2023 - 07/15/2023 N/A Cystoscopy, hydrodistention of the bladder, injection of Kenalog into Hunner lesion inside the bladder, fulguration of Hunner lesion inside the bladder, intravesical instillation of local anesthetics inside the bladder- last one 12/2022 FOOT SURGERY 02/10/2018 Right Right heel orthotripsy procedure with the OssaTron device. COLONOSCOPY 05/17/2021 - 05/16/2022 ESOPHAGOGASTRODUODENOSCOPY last one 04/2022 SPINE SURGERY 05/17/2012 - 05/16/2013 Cervical spine fusion 2012 BLADDER SURGERY 05/17/2021 - 05/16/2022 KIDNEY SURGERY 09/28/2023 Left ROBOTIC ASSISTED LAPAROSCOPIC PARTIAL RETROPERITONEAL NEPHRECTOMY CYSTOSCOPY 08/16/2023 - 09/14/2023 FULGURATION OF HUNNER LESIONS CYSTOSCOPY 06/17/2023 - 07/15/2023 CYSTOSCOPY 05/17/2022 - 05/16/2023 BLADDER HYDRODISTENTION: KENALOG INJECTION FULGURATION OF HUNNER LESIONS, INSTILLATION OF LOCAL ANETHETICS IN THE BLADDER ESOPHAGOGASTRODUODENOSCOPY 05/17/2021 - 05/16/2022 BLADDER FULGURATION 12/17/2023 FULGURATION OF HUNNER LESIONS, KENALOG INJECTION INTO BLADDER LESION CYSTOSCOPY 01/14/2024 TUMOR REMOVAL 08/16/2023 - 09/14/2023 kidney UPPER GASTROINTESTINAL ENDOSCOPY Medical History Medical History Date Comments Gastric reflux well controlled Headache Pneumonia x 3--last 2013 Arthritis Cancer (CMS/HCC) (HCC) skin, arm s CAD (coronary artery disease) NC (myocardial infarction) (HCC) 2010 Recurrent bronchiectasis (HCC) l ast 2016 Macular degeneration Vertigo Motion sickness PONV (postoperative nausea a nd vomiting) states in overnight hospitalization d/t nausea, no incidents since Psoriasis Torn rotator cuff History of torn meniscus of left knee Cervical vertebral fusion 2015 Hearing difficulty Muscle pain Photosensitivity Tinnitus Dysuria Hematuria Depression Personal history of COVID-19 05/2021 Daphney ble pneumonia / not hospitalized Delayed emergence from gener al anesthesia states in overnight hospitalization d/t delayed emergence, no incidents since Hypertension GERD (gastroesophageal reflux disease) Type 2 diabetes mellitus (HCC) Sleep apnea Wears CPAP Hunner's ulcer Chronic bronchitis ([facility]) 1994 Kidney stone 02/2022 Obesity Family History Medical History Relation Name Comments Cancer Brother 1 Diabetes Brother 1 Heart disease Brother 1 Diabetes Brother 2 Kade, Simone Diabetes Brother 3 Braun, Shayan Arthritis Father Braun, Prudencio Cancer Father Braun, Prudencio Diabetes Father Braun, Prudencio Heart attack Father Braun, Prudencio Heart disease Father Braun, Prudencio Hypertension Father Braun, Prudencio Skin cancer Father Braun, Prudencio Arthritis Mother Braun, Becca Deep vein thrombosis Mother Braun, Becca Heart attack Mother Braun, Becca Heart disease Mother Braun, Becca Transient ischemic attack Mother Braun, Becca Diabetes Sister Cecily Arora Anesthesia problems Neg Hx Malig Hypertension Neg Hx Malig Hyperthermia Neg Hx Pseudochol deficiency Neg Hx Relation Name Status Comments Brother 1 Brother 2 Braun, Simone Brother 3 Braun, Shayan Father Braun, Prudencio Mother Kade, Becca Alive Sister Cecily Arora Social History Tobacco Use Types Packs/Day Years Used Date Smoking Tobacco: Never Passive Smoke Exposure: Past Smokeless Tobacco: Never Tobacco Cessation:Counseling Given: Not Answered Alcohol Use Standard Drinks/Week Comments No 0 (1 standard drink = 0.6 oz pur e alcohol) [facility] Utilities Answer Date Recorded In the past 12 months has th e electric, gas, oil, or water company threatened to shut off services in your [...] often do you attend chur ch or orthodox services? 1 to 4 times per year 09/29/2023 Do you belong to any clubs o r organizations such as orthodox groups, unions, fraternal or athletic groups, or [...] place to sleep or slept in a intermediate (including now)? No 09/29/2023 Personal Safety Answer Date Recorded Have you ever been in or are you currently in a harmful physical or emotional relationship or is someone making you feel afraid or unsafe? Denies 06/23/2024 Sex and Gender Information Value Date Recorded Sex Assigned at Not on file Legal Sex Male 2:12 AM RETAIL SUPPORT SPECIALIST Gender Identity Not on file Sexual Orientation Not on file Obstetrics History Last Filed Vital Signs Vital Sign Reading Time Taken Comments Blood Pressure 113/87 06/23/2024 10:48 AM RETAIL SUPPORT SPECIALIST Pulse 89 06/23/2024 10:48 AM RETAIL SUPPORT SPECIALIST Temperature 36.2 C (97.2 F) 06/23/2024 10:28 AM RETAIL SUPPORT SPECIALIST Respiratory Rate 18 06/23/2024 10:48 AM RETAIL SUPPORT SPECIALIST Oxygen Saturation 94% 06/23/2024 10:48 AM RETAIL SUPPORT SPECIALIST Inhaled Oxygen Concentration - - Weight 81.6 kg (180 lb) 06/23/2024 8:55 AM RETAIL SUPPORT SPECIALIST Height 165.1 cm (5' 5 ) 06/23/2024 8:55 AM RETAIL SUPPORT SPECIALIST Body Mass Index 29.95 06/23/2024 8:55 AM RETAIL SUPPORT SPECIALIST Plan of Treatment Scheduled Procedures Name Priority Associated Diagnoses Date/Ti me BLADDER HYDRODISTENTION IC (interstitial cystitis) CYSTOSCOPY IC (interstitial cystitis) Health Maintenance Due Date Last Done Comments Depression Screening 1960 DTaP/Tdap/Td Vaccine (1 - Tdap) 1969 Hepatitis B Screening 1976 Zoster Vaccine (1 of 2) 2008 Pneumococcal vaccine 65+ (2 of 2 - PPSV23 or PCV20) 06/23/2021 04/28/2021 Well Visit 65+ 2023 Dilated Eye Exam 10/24/2023 10/23/2022 Covid-19 Vaccine (3 - 2023-2 5 season) 2024 07/14/2021, 07/23/2020 Influenza Vaccine (#1) 2024 , 03/21/2020, 06/12/2013 Lipid Panel 01/22/2024 01/21/2023, 08/0 06/2020, 03/01/2019, Additional history exists Albumin Creatinine Ratio, Urine 09/20/2024 , 07/23/2022 Hemoglobin A1C 10/16/2024 04/17/2024, 05/0 11/2023, 09/14/2023, Additional history exists Foot Exam 04/17/2025 04/17/2024, 07/23/2022 eGFR 04/18/2025 04/18/2024, 12/17, 10/15/2023, Additional history exists Prostate Cancer Screening-PSA 06/15/2025, 11/05/2021, 12/16/2020, Additional history exists Fall Risk Assessment 06/23/2025 06/23/2024, 04/15/2023, 04/05/2023, Additional history exists Colon Cancer Screening-Colonoscopy 04/27/2032 04/27/2022 Hepatitis C Screening Completed 06/28/2019, 018 Colon Cancer Screening-CT Colonography Discontinued 04/27/2022 Colon Cancer Screening-DNA Stool Discontinued 04/27/20 22 Colon Cancer Screening-FIT Discontinued 04/27/2022 Colon Cancer Screening-Sigmoidoscopy Discontinued 04/27/2022 Goals Goal Patient Goal Type Associated Problems Recent Progress Patient-Stated? Author [facility] Fall Prevention Care Plan Chronic Care Management No change(04/15 9:53 AM RETAIL SUPPORT SPECIALIST) Chani Serrato RN Note: Problem: Falls Goals: 1. Maintain strength and balance as able 2. Prevent falls and fractures 3. Maximize safety of living environment Strategies: - Educate on fall prevention and follow-up as needed - Recommend activity/exercise program - Refer to allied health as needed - Recommend healthy lifestyle strategies and compensatory methods as needed [facility] Chronic Pain Care Plan Chronic Care Management No change(04/15 9:53 AM RETAIL SUPPORT SPECIALIST) Chani Serrato RN Note: Problem: Chronic Pain Goals: 1. Minimize further functional decline 2. Maximize quality of life 3. Control pain Strategies: - Activity/exercise program recommendation - Conservative stepwise pain medicine strategy with multi-disciplinary approach - Recommend healthy lifestyle strategies and compensatory methods as needed Medical Devices Implanted Type Area Channel Lip Wetter Device Identifier Shelf Expiration Date Model / Serial / Lot Chest Sternal Wires Chest Description:Cabg x [id number] Procedures Procedure Name Priority Date/Time Associated Diagnosis Comments ESOPHAGOGASTRODUODENOSCOPY 06/23 10:07 AM RETAIL SUPPORT SPECIALIST Hepatic cirrhosis, unspecified hepatic cirrhosis type, unspecified whether ascites present (HCC) Elevated liver enzymes Healthcare maintenance EGD 06/23/2024 10:03 AM RETAIL SUPPORT SPECIALIST POCT GLUCOSE DEVICE Routine 06/23/2024 9:[address] ABDOMEN W WO CONTRAST Schedule Routine, Read Routine (OP Routine) 04/18/2024 2:25 PM RETAIL SUPPORT SPECIALIST Clear cell renal cell carcinoma, left (HCC) POCT CREATININE FOR CONTRAST EVALUATION Routine 04/18/2024 2:19 PM RETAIL SUPPORT SPECIALIST EGFR Routine 04/18/2024 1:41 PM RETAIL SUPPORT SPECIALIST Type 2 diabetes mellitus with hyperglycemia, without long-term current use of insulin (HCC) VITAMIN D 25 HYDROXY Routine 04/18/2024 1:41 PM RETAIL SUPPORT SPECIALIST Vitamin D deficiency THYROID FUNCTION CASCADE Routine 024 1:41 PM RETAIL SUPPORT SPECIALIST Type 2 diabetes mellitus with hyperglycemia, without long-term current use of insulin (HCC) COMPREHENSIVE METABOLIC PANEL Routine 1:41 PM RETAIL SUPPORT SPECIALIST Type 2 diabetes mellitus with hyperglycemia, without long-term current use of insulin (HCC) POCT HEMOGLOBIN A1C Routine 04/17/2024 1:13 PM RETAIL SUPPORT SPECIALIST Type 2 diabetes mellitus with hyperglycemia, without long-term current use of insulin (HCC) POCT GLUCOSE Routine 04/17/2024 1:13 PM RETAIL SUPPORT SPECIALIST Type 2 diabetes mellitus with hyperglycemia, without long-term current use of insulin (HCC) POCT GLUCOSE DEVICE Routine 04/03/2024 12:46 PM RETAIL SUPPORT SPECIALIST ND AN PROCEDURE PLACEHOLDER Routine 03/17 12:14 PM RETAIL SUPPORT SPECIALIST ND AN ELECTIVE SUPRAGLOTTIC AIRWAY Routine 04/03/2024 12:14 PM RETAIL SUPPORT SPECIALIST CYSTOSCOPY 04/03/2024 11:54 AM RETAIL SUPPORT SPECIALIST IC (interstitial cystitis) Special Needs KENALOG (400 mg in 5 cc) BLADDER HYDRODISTENTION 04/03/20 11:54 AM RETAIL SUPPORT SPECIALIST IC (interstitial cystitis) Special Needs KENALOG (400 mg in 5 cc) POCT GLUCOSE DEVICE Routine 04/03/2024 10:18 AM RETAIL SUPPORT SPECIALIST URINE CULTURE Routine 03/29/2024 3:20 PM RETAIL SUPPORT SPECIALIST Interstitial cystitis ALBUMIN CREATININE RATIO, URINE Routine 09/21/2023 1:01 PM CDT Type 2 diabetes mellitus with hyperglycemia, without long-term current use of insulin (CMS/HCC) (HCC) PSA DIAGNOSTIC Routine 06/15/2023 2:16 PM RETAIL SUPPORT SPECIALIST Encounter for screening for malignant neoplasm of prostate Benign enlargement of prostate LIPID PANEL Routine 01/21/2023 3:16 PM CDT Hyperlipidemia associated with type 2 diabetes mellitus (HCC) HM DIABETES EYE EXAM Routine 10/23/2022 9:30 AM CDT COLONOSCOPY 04/27/2022 11:17 AM RETAIL SUPPORT SPECIALIST HEPATITIS PANEL, ACUTE Routine 10:20 AM RETAIL SUPPORT SPECIALIST from Last 3 Months or Most Recently Relevant to Health Maintenance Results * EGD (06/23/2024 10:03 AM RETAIL SUPPORT SPECIALIST) Anatomical Region Laterality Modality Other Narrative Procedure Note Enriqueta Pardo MD - 06/23/2024 10:03 AM CST [facility] ENDOS[facility] Patient Name: Gab Braun Procedure Date: 06/23/2024 10:03 AM Date of : 1960 Admit Type: Outpatient Age: 64 Gender: Male Attending MD: Enriqueta Beckford M.D. Room: [facility] ENDOSCOPY ROOM 3 Note Status: Finalized Procedure: [...] 0 Note Initiated On: 06/23/2024 10:03 AM Enriqueta Pardo MD ENDOSCOPY PROCEDURES Final Result * POCT glucose (06/23/2024 9:00 AM RETAIL SUPPORT SPECIALIST) Glucose, POC 129 70 - 199 mg/dL Blood 06/23/2024 9:00 AM RETAIL SUPPORT SPECIALIST 06/23/2024 9:00 AM RETAIL SUPPORT SPECIALIST us Enriqueta Pardo MD LAB POCT ORDERABLES - DEVICE Final Result [facility] Department [place] [address] * CT Abdomen W WO Contrast (04/18/2024 2:25 PM RETAIL SUPPORT SPECIALIST) Anatomical Region Laterality Modality Body N/A Computed Tomogra phy 04/19/2024 5:42 PM RETAIL SUPPORT SPECIALIST Narrative 04/19/2024 5:45 PM RETAIL SUPPORT SPECIALIST EXAM DESCRIPTION: CT ABDOMEN W WO CONTRAST [...] Florencio Selby M.D. JA: SHERYL Report ID: [id number] Reading Location: [id number] Procedure Note Florencio Sebly MD - 04/19/2024 EXAM DESCRIPTION: CT ABDOMEN [...] Florencio Selby M.D. JA: SHERYL Report ID: [id number] Reading Location: [id number] Cici Contreras MD IMG CT PROCEDURES Final Result * (ABNORMAL) POCT creatinine for contrast evaluation (04/18/2024 2:19 PM RETAIL SUPPORT SPECIALIST) Creatinine POC 1.40(H) 0.80 - 1.30 mg/dL Comment:Testing performed by : [facility], [address] [place] [address]., [address] Blood 04/18/2024 2:19 PM RETAIL SUPPORT SPECIALIST 04/18/2024 2:19 PM RETAIL SUPPORT SPECIALIST us Tomas Hernández MD POINT OF CARE TEST ORDERABLE S Final Result [facility] [address] [facility] Department [place] [address] * eGFR (04/18/2024 1:41 PM RETAIL SUPPORT SPECIALIST) eGFR 74 >=60 mL/min/1. 73 m2 Comment: [...] was last reviewed 2021. Testing performed by: [address] [address] Blood 04/18/2024 1:41 PM RETAIL SUPPORT SPECIALIST 04/18/2024 2:30 PM RETAIL SUPPORT SPECIALIST Kim Rivera MD LAB BLOOD ORDERABLE S Final Result Performing Organization Address [facility] Co de Phone Number [address] [place] [address] * Thyroid Function [place] (04/18/2024 1:41 PM RETAIL SUPPORT SPECIALIST) TSH 3.16 0.30 - 4.20 mcIUnit/mL Comment:Testing performed by : [address] [address] Blood 04/18/2024 1:41 PM RETAIL SUPPORT SPECIALIST 04/18/2024 2:30 PM RETAIL SUPPORT SPECIALIST Kim Rivera MD LAB BLOOD ORDERABLE S Final Result Performing Organization Address [facility] Co de Phone Number [address] [place] [address] * Vitamin D 25 hydroxy (04/18/2024 1:41 PM RETAIL SUPPORT SPECIALIST) Vitamin D 25-OH 36.0 30.0 - 80.0 ng/mL Blood 04/18/2024 1:41 PM RETAIL SUPPORT SPECIALIST 04/18/2024 5:17 PM RETAIL SUPPORT SPECIALIST Kim Rivera MD LAB BLOOD ORDERABLE S Final Result [facility] [address] [facility] Department [place] [address] * (ABNORMAL) Comprehensive metabolic panel (04/18/2024 1:41 PM RETAIL SUPPORT SPECIALIST) Sodium 139 135 - 145 mmol/L Comment:Testing performed by : [address] [address] Potassium, pl 4.4 3.3 - 4.9 mmol/L [facility] Comment:Testing performed by : [address] [address] Chloride 101 97 - 110 mmol/L [facility] Comment:Testing performed by : [address] [address] CO2 25 22 - 32 mmol/L [facility] Comment:Testing performed by : [address] [address] Anion gap 13 2 - 15 mmol/L [facility] Comment:Testing performed by : [address] [address] BUN 30(H) 6 - 25 mg/dL [facility] Comment:Testing performed by : [address] [address] Creatinine 1.10 0.80 - 1.30 mg/dL [facility] Comment:Testing performed by : [address] [address] Glucose 94 70 - 199 mg/dL [facility] [...] was last revised 2022. Testing performed by: [address] [address] Calcium 9.9 8.5 - 10.3 mg/dL [facility] Comment:Testing performed by : [address] [address] Bilirubin, total 0.3 0.1 - 1.2 mg/dL [facility] Comment:Testing performed by : [address], [place]., [address] Protein, pl 7.2 6.5 - 8.5 g/dL [facility] Comment:Testing performed by : [address], [place]., [address] Albumin 4.4 3.5 - 5.0 g/dL [facility] Comment:Testing performed by : [address], [address] Alk phos 74 40 - 130 Units/L [facility] Comment:Testing performed by : [address] [address] ALT 34 7 - 55 Units/L [facility] Comment:Testing performed by : [address] [address] AST 24 10 - 50 Units/L [facility] Comment:Testing performed by : [address], [address] Blood 04/18/2024 1:41 PM RETAIL SUPPORT SPECIALIST 04/18/2024 2:30 PM RETAIL SUPPORT SPECIALIST Kim Rivera MD LAB BLOOD ORDERABLE S Final Result [facility] [address] [facility] Department [place] [address] * POCT hemoglobin A1c (04/17/2024 1:13 PM RETAIL SUPPORT SPECIALIST) Hemoglobin A1C, POC 5.4 4.0 - 5.6 % Blood 04/17/2024 1:13 PM RETAIL SUPPORT SPECIALIST Kim Rivera MD POINT OF CARE TEST ORDERABLES Final Result * POCT glucose (04/17/2024 1:13 PM RETAIL SUPPORT SPECIALIST) Glucose Blood, POC 87 mg/dL Blood 04/17/2024 1:13 PM RETAIL SUPPORT SPECIALIST Kim Rivera MD POINT OF CARE TEST ORDERABLES Final Result * POCT glucose (04/03/2024 12:46 PM RETAIL SUPPORT SPECIALIST) Glucose, POC 103 70 - 199 mg/dL Blood 04/03/2024 12:4 6 PM RETAIL SUPPORT SPECIALIST 04/03/2024 12:46 PM RETAIL SUPPORT SPECIALIST Bg Desai MD LAB POCT ORDERABLES - DEVICE F inal Result [facility] Department [place] [address] * ND AN ELECTIVE SUPRAGLOTTIC AIRWAY, ND AN PROCEDURE PLACEHOLDER (04/03/2024 12:14 PM RETAIL SUPPORT SPECIALIST) Narrative Harpreet Smith CRNA - 04/03/2024 12:14 PM RETAIL SUPPORT SPECIALIST Harpreet Smith CRNA 04/03/2024 12:15 PM Airway Patient location: OR Urgency: elective Indications for airway management: anesthesia Difficult airway: no Staff: Supervising provider: Grey Rhoades MD Placed by: THEOLOGY PROFESSOR: Harpreet Smith CRNA Emergent airway documentation: Risks [...] of attempts: 1 Ventilation between attempts: none Grey Rhoades MD ANESTHESIA ORDERABL ES Final Result * POCT glucose (04/03/2024 10:18 AM RETAIL SUPPORT SPECIALIST) Glucose, POC 113 70 - 199 mg/dL Blood 04/03/2024 10:1 8 AM RETAIL SUPPORT SPECIALIST 04/03/2024 10:18 AM RETAIL SUPPORT SPECIALIST Bg Desai MD LAB POCT ORDERABLES - DEVICE F inal Result Performing Organization Address [facility] Co de Phone Number SHANTAL [facility] Department [place] [address] * Urine culture Urine, clean voided (03/29/2024 3:20 PM RETAIL SUPPORT SPECIALIST) Report Final Report: Less than 100,000 colonies/mL (clinically insignificant growth based on current clinical standards) Comment:Testing performed by : [facility], [address] [place]., [address] Organism (CLINICALLY INSIGNIFICANT GROWTH [facility] Urine, clean voided 03/29/2024 3:20 PM RETAIL SUPPORT SPECIALIST 03/29/2024 10:25 PM RETAIL SUPPORT SPECIALIST Narrative [facility] - 04/01/2024 8:27 AM RETAIL SUPPORT SPECIALIST Testing performed by [facility] Microbiology Laboratory ([phone]) Bg Desai MD LAB MICROBIOLOGY - GENERAL ORD ERABLES Final Result Performing Organization Address [facility] Co de Phone Number [facility] [address] [facility] Department [place] [address] * (ABNORMAL) Albumin Creatinine Ratio, Urine (09/21/2023 1:01 PM CDT) Albumin Ur 68.9 mg/L Comment: Interpretive Data No reference range established. Current interpretive data was last revised 2018. Creatinine Ur 132.3 mg/dL [facility] Comment: Interpretive Data No reference range established. Current interpretive data was last revised 2018. Albumin Creatinine Ratio, Ur 52(H) 1 - 29 mg/g [facility] Urine 09/21/2023 1:01 PM CDT 09/21/2023 8:39 PM CDT Victor Manuel Mcdaniel MD LAB URINE ORDERABLES Final Resul t Performing Organization Address [facility] de Phone Number SHANTAL THOMAS [address] [address] [facility] [place] [address] * PSA diagnostic (06/15/2023 2:16 PM RETAIL SUPPORT SPECIALIST) PSA-Total 0.25 <=5.40 ng/mL SHANTAL Comment: Interpretive Data AGE SEX REFERENCE INTERVAL [...] 19. Blood (Blood, Venous) 06/15/2023 2:16 PM RETAIL SUPPORT SPECIALIST 06/15/2023 8:21 PM RETAIL SUPPORT SPECIALIST us Tomassterling Hernández MD LAB BLOOD ORDERABLES Final R esult Performing Organization Address [facility] de Phone Number SHANTAL THOMAS [address] [address] Department [place] [address] * (ABNORMAL) Lipid panel (01/21/2023 3:16 PM [...] on 2018. Triglycerides 310(H) <=149 mg/dL SHANTAL THOMAS Comment: Interpretive Data Ages [...] on 2018. HDL 38(L) >=40 mg/dL SHANTAL THOMAS Comment: Interpretive Data Ages [...] 2018. LDL, calculated 97 <=129 mg/dL SHANTAL THOMAS Comment: Interpretive Data Ages [...] LAB BLOOD ORDERABLES Final Resul t SHANTAL THOMAS [address] Department [place] [address] * (ABNORMAL) HM DIABETES EYE EXAM (10/23/2022 9:30 AM CDT) us Historical Provider HEALTH MAINTENANCE Edited Result - Final * COLONOSCOPY (04/27/2022 11:17 AM RETAIL SUPPORT SPECIALIST) Anatomical Region Laterality Modality Other Narrative Procedure Note Marichuy Hays MD - 04/27/2022 11:17 AM CST [facility] END[facility] Patient Name: Gab Braun Procedure Date: 04/27/2022 11:17AM Date of : 1960 Admit Type: Outpatient Age: 61 Gender: Male Attending MD: Marichuy Hays M.D. Room: [facility] ENDOSCOPY ROOM 3 Note Status: Finalized Procedure: [...] The scope was passed under direct vision.The [id number] endoscope was introduced through the anus and advanced to the terminal ileum. The colonoscopy was performed without difficulty. The patient tolerated the procedure well. The qualityof the bowel preparation was fair. The quality of the bowel preparation was evaluated using the BBPS([place] Bowel Preparation Scale) with scores of: RightColon [...] On: 04/27/2022 11:17 AM Recognized by the [employer] for promoting quality in endoscopy Marichuy Hays MD ENDOSCOPY PROCEDURES Final Res ult * Hepatitis panel, acute (06/28/2019 10:20 AM RETAIL SUPPORT SPECIALIST) Hep A IgM Negative Negative [facility] Hep B core IgM Negative Negative [facility] Hep C Ab Negative Negative [facility] HepBsAg Nonreactive Nonreactive [facility] Blood specimen (specimen) 06/28/2019 10:20 AM RETAIL SUPPORT SPECIALIST 06/28/2019 10:20 AM RETAIL SUPPORT SPECIALIST Casie Shaw MD LAB MICROBIOLOGY - GENERA [place] [address] [address] Department [place] [address] from Last 3 Months or Most Recently Relevant to Health Maintenance Insurance [facility] [employer] Address: [facility] [id number] [place] [address] [facility] ADVANTAGE CHOICE PPO [facility] ADVANTAGE CHOICE PPO Advance Directives For more information, please contact: [phone] * Full Code (Latest Code Status on [...] 10:17 AM 04/27/2022 5:07 PM Care Teams Dining Host Relationship Specialty Start Date End Date Tomas Hernández MD PCP - General 03/19/17 Francisco Domínguez MD [address] [address] Referring Physician Internal Medicine 02/03/18
--- OUTSIDE RECORDS SUMMARY | 2024-06-29 11:50 | XMS_ITS | Referral Summary ---
Author Organization [facility] Address [address] [place] [address] Care Team Providers Care Protective Service Specialist Name Role Phone Tomas Hernández MD Primary Care Provider Source Comments [facility],non-owned Affiliates and Associated Physician Practices is amultiple site organization consisting of ambulatory clinics and hospital sitesin [place], [place], [place] and [place]. This disclosure is being madepursuant to the Care Everywhere program and may not contain all information available regarding this patient. Last updated 18.[facility] Allergies No known active allergies Medications * [...] Comments Blood Pressure 156/98 04/30/2016 9:37 AM PROPERTY FIELD INSPECTOR Pulse 79 04/30/2016 9:37 AM PROPERTY FIELD INSPECTOR Temperature 36.8 C (98.2 F) 04/30/2016 9:37 AM PROPERTY FIELD INSPECTOR Respiratory Rate 16 04/30/2016 9:37 AM PROPERTY FIELD INSPECTOR Oxygen Saturation 97% 04/30/2016 9:37 AM PROPERTY FIELD INSPECTOR Inhaled Oxygen Concentration - - Weight 81.6 kg (180 lb) 04/30/2016 9:37 AM PROPERTY FIELD INSPECTOR Height 165.1 cm (5' 5 ) 04/30/2016 9:37 AM PROPERTY FIELD INSPECTOR Body Mass Index 29.95 04/30/2016 9:37 AM PROPERTY FIELD INSPECTOR Plan of Treatment Not on file Care Teams Protective Service Specialist Relationship Specialty Start Date End Date Tomas Hernández MD [address] [place] [address] PCP - General Family Medicine 04/30/16
[2024-06-29 12:15] LABS: Hematocrit 46.9 % (42.0-52.0); Hemoglobin 15.5 g/dL (14.0-18.0); Immature Platelet Fraction Pct 2.2 % (0.9-11.2); Mean Corpuscular Hemoglobin 29.1 pg (26-34); Mean Platelet Volume 9.4 fl (7.4-10.4); Platelet Count Result 131 k/mm3 (150-375); Red Blood Count 5.33 M/mm3 (4.6-6.20); Red Cell Distribution Width 14.8 % (11.5-14.5); White Blood Count 7.4 K/mm3 (4.5-10.0)
[2024-06-29 12:23] LABS: Ammonia < 9 umol/L (9-30)
[2024-06-29 12:27] LABS: Anion Gap 13 mmol/L (4-12); Blood Urea Nitrogen 18 mg/dL (9-20); Calcium 9.6 mg/dL (8.4-10.2); Carbon Dioxide 26 mmol/L (22-30); Chloride 102 mmol/L (98-107); Estimated Glomerular Filt Rate > 60; Glucose 114 mg/dL (65-110); Sodium 141 mmol/L (137-145)
[2024-06-29 12:38] LABS: Iron 122 ug/dL (49-181)
[2024-06-29 12:48] LABS: Percent Iron Saturation 38 % (20-50)
[2024-06-29 12:55] LABS: Prostate Specific Antigen 0.4 ng/mL (< OR = 4.0)
== END 2024-06-29 11:46 | disposition home or self-care (01) ==
PROVIDERS: PCP Family Medicine; Visit Provider Family Medicine
DX: Z12.5 Encounter for screening for malignant neoplasm of prostate (principal); D50.0 Iron deficiency anemia secondary to blood loss (chronic); I10 Essential (primary) hypertension; N40.0 Benign prostatic hyperplasia without lower urinary tract symptoms; E53.8 Deficiency of other specified B group vitamins; E55.9 Vitamin D deficiency, unspecified; R79.89 Other specified abnormal findings of blood chemistry
CPT/HCPCS: 36415; 80048; 82140; 82306; 82607; 82728; 83540; 83550; 84153; 84443; 85027; 85055; G0103

== ENCOUNTER 2024-07-12 09:01 | Outpatient (CLI) | payer OTHER, SELFPAY ==
--- NOTE | ~2024-07-12 | MR_ITS ---
MRI of the brain Clinical History: Aphasia Technique: Axial and sagittal T1-weighted images were acquired. These were followed by axial T2-weigh jose, diffusion weighted, gradient, and FLAIR images. Findings: No significant signal abnormality seen in the brain parenchyma. No acute infarct, intracran ial hemorrhage, or mass lesion. Ventricles and subarachnoid spaces are unremarkable. Orbits are unremarkable. Paranasal sinuses and m astoid air cells are clear. Major intracranial flow voids are intact. Sagittal midline structures are intact. Impression: Unremarkable exam. Reviewed, dictated and finalized at location M. R BOOKER Impression: Unremarkable exam.
--- OUTSIDE RECORDS SUMMARY | 2024-07-12 09:46 | XMS_ITS | Encounter Summary ---
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 file Not on file Not [...] Results * CBC (OUTSIDE LAB) (03/01/2019) Pathologist [facility] WBC 6.7 HGB 16.9 HCT 49.6 PLT 137 03/01/2019 us Doc [facility] Abstract LAB-OUTSIDE/ABSTRACTED Final Result * LIPID PANEL (03/01/2019) Pathologist [facility] CHOLESTEROL 148 HDL 33 TRIGLYCERIDES 257 NON HDL CHOLESTEROL 115 LDL (CALCULATED) 64 03/01/2019 us Doc [facility] Abstract LABORATORY Final Result * CK (CPK) (03/01/2019) Pathologist [facility] CPK 126 03/01/2019 us Doc [facility] Abstract [...] VITAMIN D 25 HYDROXY S/P/B 29 03/01/2019 [employer] Doc [facility] Abstract LABORATORY Final Result * PROSTATE SPECIFIC ANTIGEN,TOTAL (03/01/2019) PSA 0.52 03/01/2019 [facility] Abstract LABORATORY Edited Resul t - Final * THYROXINE, FREE (FT4) (03/01/2019) FREE T4 1.02 03/01/2019 [facility] LABORATORY Final Result * LIPID PANEL (06/24/2017) CHOLESTEROL 194 HDL 24 TRIGLYCERIDES 285 NON HDL CHOLESTEROL 170 LDL (CALCULATED) 113 06/24/2017 [facility] Abstract LABORATORY Edited Resul t - [...] Final Result * LIPID PANEL (10/22/2015) Pathologist [facility] CHOLESTEROL 171 HDL 25 TRIGLYCERIDES 240 LDL (CALCULATED) 98 10/22/2015 us Doc [facility] Abstract LABORATORY Final Result * COMPREHENSIVE METABOLIC PANEL (10/22/2015) Pathologist [facility] SODIUM S/P/B 141 POTASSIUM S/P/B 3.8 CO2 [...] on filedocumented in this encounter Care Teams Snow Remover Relationship Specialty Start Date End Date Tomas Hernández MD [address] [place] [address] PCP - General FAMILY PRACTICE 11/11/15 Francisco Domínguez MD [facility]. 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
--- OUTSIDE RECORDS SUMMARY | 2024-07-12 09:46 | XMS_ITS | Clinical Summary ---
Author Organization [facility] Address [address] [place] [address] Care Team Providers Care It Auditor Name Role Phone Tomas Hernández MD Primary Care Provider [phone] Francisco Domínguez MD Unavailable [phone] Allergies No known active allergies Medications omeprazole (PriLOSEC) 40 mg capsuleIndicati ons:Treatment of Non-Bleeding Gastric Disorder Take 1 capsule (40 mg total) by mouth nightly Active lisinopril (PRINIVIL,ZESTR IL) 10 mg tabletIndicatio ns:hypertension Take 1 tablet (10 mg total) by mouth nightly 11/23/19 18 Active albuterol HFA (PROVENTIL HFA,VENTOLIN HFA,PROAIR HFA) 90 mcg/actuation inhalerIndicati ons:illness related Inhale 1 puff as needed for wheezing or shortness of breath 08/12/19 16 Active omega 5-hxs-mof-fish oil 1,000 mg (120 mg-180 mg) capsuleIndicati [...] (30 mg total) by mouth every morning 08/26/19 22 Active tiZANidine (ZANAFLEX) 2 mg tabletIndicatio ns:Muscle Spasm Take 1 tablet (2 mg total) by mouth as needed for muscle spasms 04/20/20 22 Active acetaminophen (TYLENOL) 500 mg tabletIndicatio ns:Pain Take 1 tablet (500 mg total) by mouth every 6 (six) hours as needed for pain 30 tablet 07/11/19 24 Active oxyCODONE (ROXICODONE) 5 mg immediate release tabletIndicatio ns:Pain Take 1 tablet (5 mg total) by mouth every 4 (four) hours as needed for pain 20 tablet 09/28/19 24 Active Myrbetriq 50 mg tablet extended release 24 hrIndications:U rinary frequency TAKE 1 TABLET BY MOUTH EVERY DAY 90 tablet 1 01/03/20 24 Active metFORMIN XR (GLUCOPHAGE XR) 500 mg 24 hr tabletIndicatio ns:Type 2 diabetes mellitus with hyperglycemia, without long-term current use of insulin (HCC) Take 1 tablet (500 mg total) by mouth daily 90 tablet 3 04/17/20 24 025 Active glimepiride (AmaryL) 1 mg tabletIndicatio ns:type 2 diabetes mellitus Take 1 tablet (1 mg total) by mouth daily with breakfast 90 tablet 3 04/17/20 24 025 Active nitroglycerin (NITROSTAT) 0.4 mg SL tabletIndicatio ns:acute episode of anginal pain Place 1 tablet (0.4 mg total) under the tongue every 5 (five) minutes as needed for chest pain 90 tablet 3 04/28/20 24 Active Additional Information Patient not taking.Informant: Self, Reported on 06/23/2024 metoprolol XL (TOPROL-XL) 50 mg extended release tablet TAKE ONE TABLET BY MOUTH NIGHTLY 90 tablet 3 05/01/20 24 Active rosuvastatin (CRESTOR) 40 mg tablet TAKE ONE TABLET BY MOUTH NIGHTLY 90 tablet 3 05/01/20 24 Active oxyCODONE-aceta minophen (PERCOCET) 10-325 mg per tablet TAKE 1/2 TO 1 TABLET BY MOUTH EVERY 6 HOURS NEEDED FOR PAIN 04/26/20 24 Active dorzolamide-akshat oloL (COSOPT) 22.3-6.8 mg/mL ophthalmic solution INSTILL 1 DROP INTO LEFT EYE TWICE A DAY 05/03/20 24 Active phenazopyridine (PYRIDIUM) 200 mg tabletIndicatio ns:Interstitial cystitis TAKE 1 TABLET BY MOUTH 3 TIMES A DAY 10 tablet 07/03/19 25 Active phenazopyridine (Pyridium) 200 mg tablet Take 1 tablet (200 mg total) by mouth 3 (three) times a day 10 tablet 05/19/19 25 025 Discontinued Active Problems Problem Noted Date Diagnosed Date Blood clots in urine 08/18/2023 Renal mass 07/21/2023 Hematuria 07/10/2023 Hypertension associated with diabetes 06/01/2023 Assessment & Plan (04/17/2024 2:06 PM RESEARCH CHIEF ENGINEER): Chronic, well controlled Continue lisinopril and metoprolol Assessment & Plan (09/21/2023 12:41 PM CDT): Chronic, well-controlled. Continue lisinopril. Update microalbumin Assessment & Plan (06/01/2023 12:01 PM RESEARCH CHIEF ENGINEER): Chronic problem. Controlled on current lisinopril 10mg daily, metoprolol XL 50mg nightly Hepatic cirrhosis 05/04/2023 Benign colon polyp 05/04/2023 IC (intermittent claudication) 12/31/2022 Syncope and collapse 07/23/2022 Type 2 diabetes mellitus wit h hyperglycemia, without long-term current use of insulin 07/23/2022 Assessment & Plan (04/17/2024 2:05 PM RESEARCH CHIEF ENGINEER): Chronic, overall well controlled with hemoglobin A1c [...] discussed Assessment & Plan (06/01/2023 1:18 PM RESEARCH CHIEF ENGINEER): Chronic problem. Currently not taking any medications. [...] that time. Aware that he can call/send [employer] message if he changes his mind about [...] analog. Assessment & Plan (07/23/2022 4:32 PM RESEARCH CHIEF ENGINEER): Hba1c was Lab Results Component Value Date [...] (09/17/2021): Added automatically from request for surgery [id number] Pelvic pain 01/24/2021 Overview (01/24/2021): Added automatically from request for surgery [id number] Benign prostatic hyperplasia 01/09/2021 Healthcare maintenance 02/15/2018 Assessment & Plan (02/15/2018 8:19 AM CDT): He reports having had a colonoscopy about 4 years ago removing small polyps. Elevated liver enzymes 02/11/2018 Plantar fasciitis 02/03/2018 Overview (02/03/2018): Added automatically from request for surgery [id number] S/P CABG (coronary artery bypass graft) 06/22/19 17 Essential hypertension 11/07/2015 Hyperlipidemia associated with type 2 diabetes nohelia davalos 11/07/2015 Assessment & Plan (04/17/2024 2:03 PM RESEARCH CHIEF ENGINEER): Continue statin therapy Assessment & Plan (09/21/2023 12:41 PM CDT): Chronic, well-controlled. Continue statin therapy with rosuvastatin Assessment & Plan (06/01/2023 1:15 PM RESEARCH CHIEF ENGINEER): Chronic problem. Managed by cardiology. Currently taking Rosuvastatin 40mg. Last lipid panel: 01/21/23 LDL=97, GO=428. 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 05/21/2008 Dizziness and giddiness 03/05/2008 Family history of ischemic h eart disease and other diseases of the circulatory system 03/05/2008 Encounters Date Type Department Care Team Description 5 10:07 AM RESEARCH CHIEF ENGINEER Anesthesia Event [facility] [address] [address] Agnes Ferrer MD 5 10:00 AM RESEARCH CHIEF ENGINEER - 5 10:30 AM RESEARCH CHIEF ENGINEER Surgery [facility] [address] [address] Enriqueta Pardo MD ESOPHAGOGASTRODUODENOSCOPY 5 8:33 AM RESEARCH CHIEF ENGINEER - 5 11:10 AM RESEARCH CHIEF ENGINEER Hospital Encounter [facility] [address] [place] [address] Enriqueta Pardo MD Discharge Disposition: Discharge to home or self care 5 Telephone [facility] Specialty Services [facility] [place] [address] Zarina Mauro RN GI PROCEDURE 7 DAY PRE CALL [address] [facility] Urology [address] [facility] [address] [place] [phone] Bg Desai MD 4 Telephone [facility] Specialty Services [address] [place] [phone] Miscellaneous , Not In File 4 11:59 PM RESEARCH CHIEF ENGINEER Anesthesia Event [facility] Dig[facility]ive [facility] [place] [address] [address] Joseph Vallejo MD Terkonda, Raghu P., MD 4 Telephone [facility] Gastroenterology [address] [facility] Advanced Medicine 12th [place] [address] [place] [phone] Kusum Bansal 4 Telephone [facility] Specialty Services [address] [place] [phone] Drea Ragland RN GI Preprocedure 4 Telephone [facility] Cardiology [address] [facility] [address] [place] [address] Joseph Lockwood MD Med Refill 4 Telephone [facility] [address] [place] [address] [address] [place] [phone] Kim Huerta MD Med Refill 4 3:00 PM RESEARCH CHIEF ENGINEER Telemedicine [place] [facility] ([facility] Urology [address] [place] [address] Medicine 11th [place] [address] [place] [phone] Cici Contreras MD Clear cell renal cell carcinoma, left (HCC) (Primary Dx); Interstitial cystitis 4 1:55 PM RESEARCH CHIEF ENGINEER - 4 11:59 PM RESEARCH CHIEF ENGINEER Hospital Encounter [facility] Medical Office Building [address] [place] [address] Clear cell renal cell carcinoma, left (HCC) Discharge Disposition: Discharge to home or self care 4 1:35 PM RESEARCH CHIEF ENGINEER Lab [facility] Lab [address] [place] [address] Type 2 diabetes mellitus wit h hyperglycemia, without long-term current use of insulin (HCC); Vitamin D deficiency 4 1:15 PM RESEARCH CHIEF ENGINEER Office Visit [facility] Diabetes and Endocrinology [address] [place] [phone] Kim Huerta MD Type 2 diabetes mellitus with hyperglycemia, without long-term current use of insulin (HCC) (Primary Dx); Hypertension associated with diabetes (HCC); Hyperlipidemia associated with type 2 diabetes mellitus (HCC); Vitamin D deficiency 4 Telephone [facility] Diabetes and Endocrinology [address] [place] [phone] Kim Huerta MD PCP Callback Request - Patient from Last 3 Months Immunizations Immunization Administration Dates Next Due Influenza, Quadrivalent, Rec [...] skin, arm s CAD (coronary artery disease) RI (myocardial infarction) ([facility]) 2011 Recurrent bronchiectasis ([facility]) l ast 2016 Macular degeneration Vertigo Motion [...] apnea Wears CPAP Hunner's ulcer Chronic bronchitis (HCC) 1994 Kidney stone 02/2022 Obesity Family History Medical History Relation Name Comments Cancer Brother 1 Diabetes Brother 1 Heart disease Brother 1 Diabetes Brother 2 Simone Braun Diabetes Brother 3 Shayan Braun Arthritis Father Braun, Prudencio Cancer Father Braun, [...] Name Status Comments Brother 1 Brother 2 Kade, Simone Brother 3 Shayan Braun Father Kade, Prudencio Mother Kade, Becca Alive Sister Cecily Arora Social History Tobacco Use Types Packs/Day Years Used Date Smoking Tobacco: Never Passive Smoke Exposure: Past Smokeless Tobacco: Never Tobacco Cessation:Counseling Given: Not Answered Alcohol Use Standard Drinks/Week Comments No 0 (1 standard drink = 0.6 oz pur e alcohol) [facility] Utilities Answer Date Recorded In the past 12 months has [employer], oil, or water [employer] threatened to shut off services in your [...] week 09/29/2023 How often do you attend [facility] or mu-ism services? 1 to 4 times per year 09/29/2023 Do you belong to any clubs o r organizations such as yazidism groups, unions, fraternal or athletic groups, or [...] place to sleep or slept in a usp (including now)? No 09/29/2023 Personal Safety Answer Date Recorded Have you ever been in or are you currently in a harmful physical or emotional relationship or is someone making you feel afraid or unsafe? Denies 06/23/2024 Sex and Gender Information Value Date Recorded Sex Assigned at Not on file Legal Sex Male 2:12 AM RESEARCH CHIEF ENGINEER Gender Identity Not on file Sexual Orientation Not on file Obstetrics History Last Filed Vital Signs Vital Sign Reading Time Taken Comments Blood Pressure 113/87 06/23/2024 10:48 AM RESEARCH CHIEF ENGINEER Pulse 89 06/23/2024 10:48 AM RESEARCH CHIEF ENGINEER Temperature 36.2 C (97.2 F) 06/23/2024 10:28 AM RESEARCH CHIEF ENGINEER Respiratory Rate 18 06/23/2024 10:48 AM RESEARCH CHIEF ENGINEER Oxygen Saturation 94% 06/23/2024 10:48 AM RESEARCH CHIEF ENGINEER Inhaled Oxygen Concentration - - Weight 81.6 kg (180 lb) 06/23/2024 8:55 AM RESEARCH CHIEF ENGINEER Height 165.1 cm (5' 5 ) 06/23/2024 8:55 AM RESEARCH CHIEF ENGINEER Body Mass Index 29.95 06/23/2024 8:55 AM RESEARCH CHIEF ENGINEER Plan of Treatment Scheduled Procedures Name Priority Associated Diagnoses Date/Ti me BLADDER HYDRODISTENTION IC (interstitial cystitis) CYSTOSCOPY IC (interstitial cystitis) Health Maintenance Due Date Last Done Comments Depression Screening 1960 DTaP/Tdap/Td Vaccine (1 - Tdap) 1969 Hepatitis B Screening 1976 Zoster Vaccine (1 of 2) 2008 Pneumococcal vaccine 65+ (2 of 2 - PPSV23) 06/23/2021 04/28/2021 Well Visit 65+ 2023 Dilated Eye Exam 10/24/2023 10/23/2022 Covid-19 Vaccine (3 - 2023-2 5 season) 2024 07/14/2021, 07/23/2020 Influenza Vaccine (#1) 2024 , 03/21/2020, 06/12/2013 Lipid Panel 01/22/2024 01/21/2023, 08/0 06/2020, 03/01/2019, Additional history exists Albumin Creatinine Ratio, Urine 09/20/2024 , 07/23/2022 Hemoglobin A1C 10/16/2024 04/17/2024, 05/0 11/2023, 09/14/2023, Additional history exists Foot Exam 04/17/2025 04/17/2024, 07/23/2022 eGFR 04/18/2025 04/18/2024, 083 , 10/15/2023, Additional history exists Prostate Cancer Screening-PSA [...] Type Associated Problems Recent Progress Patient-Stated? Author [facility] Fall Prevention Care Plan Chronic Care Management No change(04/15 9:53 AM RESEARCH CHIEF ENGINEER) No Chani Vela RN Note: Problem: Falls Goals: 1. Maintain strength and balance as able 2. Prevent falls and fractures 3. Maximize safety of living environment Strategies: - Educate on fall prevention and follow-up as needed - Recommend activity/exercise program - Refer to allied health as needed - Recommend healthy lifestyle strategies and compensatory methods as needed [facility] Chronic Pain Care Plan Chronic Care Management No change(04/15 9:53 AM RESEARCH CHIEF ENGINEER) No Chani Vela RN Note: Problem: Chronic Pain Goals: 1. Minimize further functional decline 2. Maximize quality of life 3. Control pain Strategies: - Activity/exercise program recommendation - Conservative stepwise pain medicine strategy with multi-disciplinary approach - Recommend healthy lifestyle strategies and compensatory methods as needed Medical Devices Implanted Type Area Radiochemical Technician Device Identifier Shelf Expiration Date Model / Serial / Lot Chest Sternal Wires Chest Description:Cabg x [id number] Procedures Procedure Name Priority Date/Time Associated Diagnosis Comments ESOPHAGOGASTRODUODENOSCOPY 06/23 10:07 AM RESEARCH CHIEF ENGINEER Hepatic cirrhosis, unspecified hepatic cirrhosis type, unspecified whether ascites present (HCC) Elevated liver enzymes Healthcare maintenance EGD 06/23/2024 10:03 AM RESEARCH CHIEF ENGINEER POCT GLUCOSE DEVICE Routine 06/23/2024 9:[address] ABDOMEN W WO CONTRAST Schedule Routine, Read Routine (OP Routine) 04/18/2024 2:25 PM RESEARCH CHIEF ENGINEER Clear cell renal cell carcinoma, left (HCC) POCT CREATININE FOR CONTRAST EVALUATION Routine 04/18/2024 2:19 PM RESEARCH CHIEF ENGINEER EGFR Routine 04/18/2024 1:41 PM RESEARCH CHIEF ENGINEER Type 2 diabetes mellitus with hyperglycemia, without long-term current use of insulin (HCC) VITAMIN D 25 HYDROXY Routine 04/18/2024 1:41 PM RESEARCH CHIEF ENGINEER Vitamin D deficiency THYROID FUNCTION CASCADE Routine 024 1:41 PM RESEARCH CHIEF ENGINEER Type 2 diabetes mellitus with hyperglycemia, without long-term current use of insulin (HCC) COMPREHENSIVE METABOLIC PANEL Routine 1:41 PM RESEARCH CHIEF ENGINEER Type 2 diabetes mellitus with hyperglycemia, without long-term current use of insulin (HCC) POCT HEMOGLOBIN A1C Routine 04/17/2024 1:13 PM RESEARCH CHIEF ENGINEER Type 2 diabetes mellitus with hyperglycemia, without long-term current use of insulin (HCC) POCT GLUCOSE Routine 04/17/2024 1:13 PM RESEARCH CHIEF ENGINEER Type 2 diabetes mellitus with hyperglycemia, without long-term current use of insulin (HCC) ALBUMIN CREATININE RATIO, URINE Routine 09/21/2023 1:01 PM CDT Type 2 diabetes mellitus with hyperglycemia, without long-term current use of insulin (CMS/HCC) (HCC) PSA DIAGNOSTIC Routine 06/15/2023 2:16 PM RESEARCH CHIEF ENGINEER Encounter for screening for malignant neoplasm of prostate Benign enlargement of prostate LIPID PANEL Routine 01/21/2023 3:16 PM CDT Hyperlipidemia associated with type 2 diabetes mellitus (HCC) HM DIABETES EYE EXAM Routine 10/23/2022 9:30 AM CDT COLONOSCOPY 04/27/2022 11:17 AM RESEARCH CHIEF ENGINEER HEPATITIS PANEL, ACUTE Routine 10:20 AM RESEARCH CHIEF ENGINEER from Last 3 Months or Most Recently Relevant to Health Maintenance Results * EGD (06/23/2024 10:03 AM RESEARCH CHIEF ENGINEER) Anatomical Region Laterality Modality Other Narrative Procedure Note Enriqueta Pardo MD - 06/23/2024 10:03 AM CST [facility] Patient Name: Gab Braun Procedure Date: 06/23/2024 10:03 AM Date of : 1960 Admit Type: Outpatient Age: 64 Gender: Male Attending MD: Enriqueta Beckford M.D. Room: [facility] ENDOSCOPY ROOM 3 Note Status: Finalized [...] Result * POCT glucose (06/23/2024 9:00 AM RESEARCH CHIEF ENGINEER) Glucose, POC 129 70 - 199 mg/dL Blood 06/23/2024 9:00 AM RESEARCH CHIEF ENGINEER 06/23/2024 9:00 AM RESEARCH CHIEF ENGINEER us Enriqueta Pardo MD LAB POCT ORDERABLES - DEVICE Final Result [facility] Department [place] [address] * CT Abdomen W WO Contrast (04/18/2024 2:25 PM RESEARCH CHIEF ENGINEER) Anatomical Region Laterality Modality Body N/A Computed Tomogra phy 04/19/2024 5:42 PM RESEARCH CHIEF ENGINEER Narrative 04/19/2024 5:45 PM RESEARCH CHIEF ENGINEER EXAM DESCRIPTION: CT ABDOMEN W WO CONTRAST [...] Florencio Selby M.D. JA: SHERYL Report ID: [id number] [place] Location: [id number] Procedure Note Florencio Selby MD - 04/19/2024 [...] Florencio Selby M.D. JA: SHERYL Report ID: [id number] [place] Location: [id number] us Cici Contreras MD IMG CT PROCEDURES Final Result * (ABNORMAL) POCT creatinine for contrast evaluation (04/18/2024 2:19 PM RESEARCH CHIEF ENGINEER) Pathologist [facility] Creatinine POC 1.40(H) 0.80 - 1.30 mg/dL Comment:Testing performed by : [facility], [address] [place] [address]., [address] Blood 04/18/2024 2:19 PM RESEARCH CHIEF ENGINEER 04/18/2024 2:19 PM RESEARCH CHIEF ENGINEER us Tomas Hernández MD POINT OF CARE TEST ORDERABLE S Final Result [facility] [address] [facility] Department [place] [address] * eGFR (04/18/2024 1:41 PM RESEARCH CHIEF ENGINEER) eGFR 74 >=60 mL/min/1. 73 m2 Comment: [...] was last reviewed 2021. Testing performed by: [address] [address] Blood 04/18/2024 1:41 PM RESEARCH CHIEF ENGINEER 04/18/2024 2:30 PM RESEARCH CHIEF ENGINEER Kim Rivera MD LAB BLOOD ORDERABLE S Final Result Performing Organization Address City/[facility]/ZIP Co de Phone Number [address] [place] [address] * Thyroid Function Spencer (04/18/2024 1:41 PM RESEARCH CHIEF ENGINEER) TSH 3.16 0.30 - 4.20 mcIUnit/mL Comment:Testing performed by : [address] [address] Blood 04/18/2024 1:41 PM RESEARCH CHIEF ENGINEER 04/18/2024 2:30 PM RESEARCH CHIEF ENGINEER us Kim Rivera MD LAB BLOOD ORDERABLE S Final Result [address] [place] [address] * Vitamin D 25 hydroxy (04/18/2024 1:41 PM RESEARCH CHIEF ENGINEER) Vitamin D 25-OH 36.0 30.0 - 80.0 ng/mL Blood 04/18/2024 1:41 PM RESEARCH CHIEF ENGINEER 04/18/2024 5:17 PM RESEARCH CHIEF ENGINEER us Kim Rivera MD LAB BLOOD ORDERABLE S Final Result [facility] [address] [facility] [place] [address] * (ABNORMAL) Comprehensive metabolic panel (04/18/2024 1:41 PM RESEARCH CHIEF ENGINEER) Sodium 139 135 - 145 mmol/L Comment:Testing performed by : [address] [address] Potassium, pl 4.4 3.3 - 4.9 mmol/L [facility] Comment:Testing performed by : [address] [address] Chloride 101 97 - 110 mmol/L [facility] Comment:Testing performed by : [address] [address] CO2 25 22 - 32 mmol/L [facility] Comment:Testing performed by : [address] [address] Anion gap 13 2 - 15 mmol/L [facility] Comment:Testing performed by : [address] [address] BUN 30(H) 6 - 25 mg/dL [facility] Comment:Testing performed by : [address] [address] Creatinine 1.10 0.80 - 1.30 mg/dL [facility] Comment:Testing performed by : [address] [address] Glucose 94 70 - 199 mg/dL [facility] [...] was last revised 2022. Testing performed by: [address] [address] Calcium 9.9 8.5 - 10.3 mg/dL [facility] Comment:Testing performed by : [address] [address] Bilirubin, total 0.3 0.1 - 1.2 mg/dL [facility] Comment:Testing performed by : [address] [address] Protein, pl 7.2 6.5 - 8.5 g/dL [facility] Comment:Testing performed by : [address], [place]., [address] Albumin 4.4 3.5 - 5.0 g/dL [facility] Comment:Testing performed by : [address] [address] Alk phos 74 40 - 130 Units/L [facility] Comment:Testing performed by : [address] [address] ALT 34 7 - 55 Units/L [facility] Comment:Testing performed by : [address] [address] AST 24 10 - 50 Units/L [facility] Comment:Testing performed by : [address] [address] Blood 04/18/2024 1:41 PM RESEARCH CHIEF ENGINEER 04/18/2024 2:30 PM RESEARCH CHIEF ENGINEER Kim Rivera MD LAB BLOOD ORDERABLE S Final Result [facility] [address] [facility] Department of Laboratories [place], [place] [id number] * POCT hemoglobin A1c (04/17/2024 1:13 PM RESEARCH CHIEF ENGINEER) Hemoglobin A1C, POC 5.4 4.0 - 5.6 % Blood 04/17/2024 1:13 PM RESEARCH CHIEF ENGINEER Kim Rivera MD POINT OF CARE TEST ORDERABLES Final Result * POCT glucose (04/17/2024 1:13 PM RESEARCH CHIEF ENGINEER) Glucose Blood, POC 87 mg/dL Blood 04/17/2024 1:13 PM RESEARCH CHIEF ENGINEER Kim Rivera MD POINT OF CARE TEST ORDERABLES Final Result * (ABNORMAL) Albumin Creatinine Ratio, Urine (09/21/2023 1:01 PM CDT) Albumin Ur 68.9 mg/L Comment: Interpretive Data No reference range established. Current interpretive data was last revised 2018. Creatinine Ur 132.3 mg/dL [facility] Comment: Interpretive Data No reference range established. Current interpretive data was last revised 2018. Albumin Creatinine Ratio, Ur 52(H) 1 - 29 mg/g [facility] Urine 09/21/2023 1:01 PM CDT 09/21/2023 8:39 PM CDT Victor Manuel Mcdaniel MD LAB URINE ORDERABLES Final Resul t [facility] [address] [address] Department [place] [address] * PSA diagnostic (06/15/2023 2:16 PM RESEARCH CHIEF ENGINEER) PSA-Total 0.25 <=5.40 ng/mL [facility] Comment: Interpretive Data AGE SEX REFERENCE INTERVAL [...] 21. Blood (Blood, Venous) 06/15/2023 2:16 PM RESEARCH CHIEF ENGINEER 06/15/2023 8:21 PM RESEARCH CHIEF ENGINEER us Tomas Alexis Hernández MD LAB BLOOD ORDERABLES Final R esult [facility] [address] [facility] Department [place] [address] * (ABNORMAL) Lipid panel (01/21/2023 3:16 PM CDT) Cholesterol 197 30 - 199 mg/dL [facility] Comment: Interpretive Data Ages [...] revised on 2018. Chol/HDL ratio 5 [facility]AS Blood 01/21/2023 3:16 PM CDT 01/21/2023 10:04 PM CDT Victor Manuel Mcdaniel MD LAB BLOOD ORDERABLES Final Resul t [facility] [address] [address] Department [place] [address] * (ABNORMAL) DIABETES EYE EXAM (10/23/2022 9:30 AM CDT) Historical Provider HEALTH MAINTENANCE Edited Result - Final * COLONOSCOPY (04/27/2022 11:17 AM RESEARCH CHIEF ENGINEER) Anatomical Region Laterality Modality Other Narrative Procedure Note Marichuy Hays MD - 04/27/2022 11:17 AM CST [facility] Patient Name: Gab Braun Procedure Date: 04/27/2022 11:17AM Date of : 1960 Admit Type: Outpatient Age: 61 Gender: Male Attending MD: Marichuy Hays M.D. Room: [facility] ENDOSCOPY ROOM 3 Note Status: Finalized [...] scope was passed under direct vision.The CF [id number] endoscope was introduced through the anus and advanced to the terminal ileum. The colonoscopy was performed without difficulty. The patient tolerated the procedure well. The qualityof the bowel preparation was fair. The quality of the bowel preparation was evaluated using the BBPS(Benton Bowel Preparation Scale) with scores of: RightColon [...] On: 04/27/2022 11:17 AM Recognized by the [employer] for promoting quality in endoscopy Marichuy Hays MD ENDOSCOPY PROCEDURES Final Res ult * Hepatitis panel, acute (06/28/2019 10:20 AM RESEARCH CHIEF ENGINEER) Hep A IgM Negative Negative [facility] Hep B core IgM Negative Negative [facility] Hep C Ab Negative Negative [facility] HepBsAg Nonreactive Nonreactive [facility] Blood specimen (specimen) 06/28/2019 10:20 AM RESEARCH CHIEF ENGINEER 06/28/2019 10:20 AM RESEARCH CHIEF ENGINEER Casie Shaw MD LAB MICROBIOLOGY - GENERA L ORDERABLES Final Result [facility] [address] Department [place] [address] from Last 3 Months or Most Recently Relevant to Health Maintenance Insurance [facility] [place] [employer] Address: [id number] [id number] [facility] ADVANTAGE CHOICE PPO [facility] ADVANTAGE CHOICE PPO Advance Directives For more information, please contact: [phone] * Full Code (Latest Code Status on [...] 10:17 AM 04/27/2022 5:07 PM Care Teams It Auditor Relationship Specialty Start Date End Date Tomas Hernández MD PCP - General 03/19/17 Francisco Domínguez MD [address] [address] Referring Physician Internal Medicine 02/03/18
--- OUTSIDE RECORDS SUMMARY | 2024-07-12 09:46 | XMS_ITS | Clinical Summary ---
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 Not on file Not on file Not on fi le Last Filed Vital Signs Vital Sign Reading Time Taken Comments Blood Pressure 120/80 04/13/2022 11:10 AM FOUNDRY WORKER APPRENTICE Pulse 87 04/13/2022 11:10 AM FOUNDRY WORKER APPRENTICE Temperature 36.6 C (97.9 F) 04/07/2022 6:03 PM FOUNDRY WORKER APPRENTICE Respiratory Rate 18 04/07/2022 6:03 PM FOUNDRY WORKER APPRENTICE Oxygen Saturation 98% 04/07/2022 6:03 PM FOUNDRY WORKER APPRENTICE Inhaled Oxygen Concentration - - Weight 84.4 kg (186 lb) 04/13/2022 11:10 AM FOUNDRY WORKER APPRENTICE Height 162.6 cm (5' 4 ) 04/13/2022 11:10 AM FOUNDRY WORKER APPRENTICE Body Mass Index 31.93 04/13/2022 11:10 AM FOUNDRY WORKER APPRENTICE Plan of Treatment Health Maintenance Due Date [...] to Health Maintenance Insurance [employer] Care Teams Dog Handler Relationship Specialty Start Date End Date Tomas Hernández MD [address] [place] [address] PCP - General FAMILY PRACTICE 11/11/15 Francisco Domínguez MD [address] [place] [address] Sima Drill Press Set Up Operator Radial CARDIOVASCULAR DISEASE 11/14/15
--- OUTSIDE RECORDS SUMMARY | 2024-07-12 09:46 | XMS_ITS | Encounter Summary ---
Author Organization [facility] Address [address] [place] [address] Care Team Providers Care Watch Inspector Name Role Phone Tomas Hernández MD Primary Care Provider [phone] Francisco Domínguez MD Unavailable [phone] Encounter Details Date Type Department Care Team (Late st Contact Info) Description 04/30/2017 Orders Only [facility] Nuclear Medicine [address] [place] [address] Maryam Plasencia, RT Social History Tobacco Use Types Packs/Day Years Used Date Smoking Tobacco: Never Smokeless Tobacco: Never Alcohol Use Standard Drinks/Week Comments No 0 (1 standard drink = 0.6 oz pur e alcohol) Sex and Gender Information Value Date Recorded Sex Assigned at Not on file Legal 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
--- OUTSIDE RECORDS SUMMARY | 2024-07-12 09:46 | XMS_ITS | Clinical Summary ---
Author Organization [facility] Address [address] [facility] [place] [address] Care Team Providers Care Software Test Specialist Name Role Phone Tomas Hernández MD Primary Care Provider [phone] Source Comments [facility],non-owned Affiliates and Associated Physician Practices is amultiple site organization consisting of ambulatory clinics and hospital sitesin [place], [place], [place] and [place]. This disclosure is being madepursuant to the Care Everywhere program and may not contain all information available regarding this patient. Last updated 18.[facility] Allergies No known active allergies Medications * [...] Comments Blood Pressure 156/98 04/30/2016 9:37 AM CUSHION STUFFER Pulse 79 04/30/2016 9:37 AM CUSHION STUFFER Temperature 36.8 C (98.2 F) 04/30/2016 9:37 AM CUSHION STUFFER Respiratory Rate 16 04/30/2016 9:37 AM CUSHION STUFFER Oxygen Saturation 97% 04/30/2016 9:37 AM CUSHION STUFFER Inhaled Oxygen Concentration - - Weight 81.6 kg (180 lb) 04/30/2016 9:37 AM CUSHION STUFFER Height 165.1 cm (5' 5 ) 04/30/2016 9:37 AM CUSHION STUFFER Body Mass Index 29.95 04/30/2016 9:37 AM CUSHION STUFFER Plan of Treatment Health Maintenance Due Date [...] age to complete this topic Care Teams Software Test Specialist Relationship Specialty Start Date End Date Tomas Hernández MD [address] [place] [address] PCP - General Family Medicine 04/30/16
--- OUTSIDE RECORDS SUMMARY | 2024-07-12 09:46 | XMS_ITS | Patient Health Summary ---
Author Organization [facility] Address [address] [place] [address] Care Team Providers Care Card Mounter Name Role Phone Tomas Hernández MD Primary Care Provider [phone] Note from [facility],non-owned Affiliates and Associated Physician Practices is amultiple site organization consisting of ambulatory clinics and hospital sitesin [place], [place], [place] and [place]. This disclosure is being madepursuant to the Care Everywhere program and may not contain all information available regarding this patient. Last updated 18.[facility] Allergies No known active allergies Medications * [...] Comments Blood Pressure 156/98 04/30/2016 9:37 AM STUNT DOUBLE Pulse 79 04/30/2016 9:37 AM STUNT DOUBLE Temperature 36.8 C (98.2 F) 04/30/2016 9:37 AM STUNT DOUBLE Respiratory Rate 16 04/30/2016 9:37 AM STUNT DOUBLE Oxygen Saturation 97% 04/30/2016 9:37 AM STUNT DOUBLE Inhaled Oxygen Concentration - - Weight 81.6 kg (180 lb) 04/30/2016 9:37 AM STUNT DOUBLE Height 165.1 cm (5' 5 ) 04/30/2016 9:37 AM STUNT DOUBLE Body Mass Index 29.95 04/30/2016 9:37 AM STUNT DOUBLE Procedures * DERMATOPATHOLOGY(Performed 01/04/2024) * DERMATOPATHOLOGY(Performed 11/05/2022) * DERMATOPATH TECHNICAL REPORT(Performed 09/27/2019) * DERMATOPATHOLOGY(Performed 06/08/2019) * DERMATOPATHOLOGY(Performed 11/04/2017) * DERMATOPATHOLOGY(Performed 01/26/2013) Results * DERMATOPATHOLOGY (01/04/2024 10:32 AM CDT) Only the most recent of5 resultswithin the time period is included. Case Report Dermatopathology Report Case: [id number] Authorizing Provider: Casie Shaw MD Collected: 01/04/2024 10:32 AM Ordering Location: [facility] - Received: 01/04/2024 03:14 PM [...] specimen consists of a shave biopsy measuring [id number] mm. Jar 0. 3:42 PM T DERMATOPATHOLOGY [...] characteristic determined by the Dermatopathology Laboratory at [facility], directed by Dr. Sapna Keith. These tests need not be, and therefore are not, approved by the [place] Food and Drug Administration. The tests are used for clinical purposes. Billing Codes Specimen Charges Stain Charges 08704 45100 1 1 [id number] [id number] 1 1 3:42 PM CDT DERMATOPATHOLOGY LABORATORY Embedded Images 3:42 PM CDT DERMATOPATHOLOGY LABORATORY Pathology/Cytology TISSUE SPECIMEN FROM SKIN / Unknown 01/04/2024 10:32 AM CDT 01/04/2024 3:14 PM CDT Miscellaneous samples (specimen) TISSUE SPECIMEN FROM SKIN / Unknown 01/04/2024 10:32 AM CDT 01/04/2024 3:14 PM CDT Casie Shaw MD LAB - PATHOLOGY/CYTO LOGY ORDERABLES DERMATOPATHOLOGY LABORATORY [facility] - Department of Dermatology [address], [address] [phone] * DERMATOPATH TECHNICAL REPORT (09/27/2019 12:00 AM CDT) Case Report Dermatopathology Report Case: [id number] Authorizing Provider: Casie Shaw MD Collected: 09/27/2019 12:00 AM Ordering Location: [facility] DermPath Lab Received: 09/28/2019 06:40 AM Pathologist: Shaniqua Duran MD Specimen: Skin, right arm 0 12:20 PM CDT DERMATOPATHOLOGY LABORATORY Addendum 1 At the request of the diagnosing physician, technical component for [place]/MelanA was performed at [facility] Dermatopathology Laboratory. 0 12:20 PM CDT DERMATOPATHOLOGY LABORATORY Addendum electronically signed by Shaniqua Duran MD on 10/02/2019 at 12:20 PM Clinical History AK vs SCC vs PSO, non-healing, eroded papule. 0 12:20 PM CDT DERMATOPATHOLOGY LABORATORY Gross Description Specimen A: Received is one formalin filled container labeled with the patient's name and designated right arm. The specimen consists of a shave measuring [id number]. Jar 0. [facility] Dermatopathology Laboratory performed the technical component [...] characteristic determined by the Dermatopathology Laboratory at [facility], directed by Dr. Sapna Keith. These tests need not be, and therefore are not, approved by the [place] Food and Drug Administration. The tests are used for clinical purposes. 0 12:20 PM CDT DERMATOPATHOLOGY LABORATORY Pathology/Cytolog y TISSUE SPECIMEN FROM SKIN / Unknown 09/27/2019 09/28/2019 6:40 AM CDT Casie Shaw MD LAB - PATHOLOGY/CYTO LOGY ORDERABLES DERMATOPATHOLOGY LABORATORY [facility] - Department of Dermatology [facility]/[address] [phone] Care Teams Card Mounter Relationship Specialty Start Date End Date Tomas Hernández MD [address] [place] [address] PCP - General Family Medicine 04/30/16
--- OUTSIDE RECORDS SUMMARY | 2024-07-12 09:46 | XMS_ITS | Referral Summary ---
Author Organization [facility] Address [address] [place] [address] Care Team Providers Care Accounts Payable Assistant Name Role Phone Tomas Hernández MD Primary Care Provider [phone] Francisco Domínguez MD Unavailable [phone] Encounters Date Type Department Care Team Description 5 10:07 AM [facility] [[email or web address]] Anesthesia Event [facility] Digestive Disease [place] [address] [address] Agnes Ferrer MD 5 10:00 AM DREDGE ENGINEER - 5 10:30 AM [facility] [[email or web address] Surgery [facility] [place] [address] [address] Enriqueta Pardo MD ESOPHAGOGASTRODUODENOSCOPY 5 8:33 AM DREDGE ENGINEER - 5 11:10 AM [facility] [[email or web address] Hospital Encounter [facility] Digestive [facility] [place] [address] [address] Enriqueta Pardo MD Discharge Disposition: Discharge to home or self care 5 Telephone [facility] [address] [place] [address], [place] [address] Zarina Mauro RN GI PROCEDURE 7 DAY PRE CALL 5 Telephone [facility] Urology [address] [facility] Medical Office Building [address] [place] [phone] Bg Desai MD 4 11:59 PM DREDGE ENGINEER Anesthesia Event [facility] Digestive Disease Center [address] [facility] [address] [place] [address] Joseph Vallejo MD Terkonda, Raghu P., MD 4 Telephone [facility] [address] [place] [phone] Miscellaneous , Not In File 4 Telephone [facility] Gastroenterology [address] [facility] 12th [place] [address] [place] [phone] Kusum Bansal 4 Telephone [facility] [address] [place] [phone] Drea Ragland RN GI Preprocedure 4 Telephone [facility] Cardiology [address] [facility] [address] [place] [address] Joseph Lockwood MD Med Refill 4 Telephone [facility] [address] [place] [address] [address] [place] [address] Kim Huerta MD Med Refill 4 3:00 PM DREDGE ENGINEER [facility] Urology [address] [facility] 11th [place] [address] [place] [address] Cici Contreras MD Clear cell renal cell carcinoma, left (HCC) (Primary Dx); Interstitial cystitis 4 1:35 PM DREDGE ENGINEER Lab [facility] Lab [address] [place], [place] [id number] Type 2 diabetes mellitus wit h hyperglycemia, without long-term current use of insulin (HCC); Vitamin D deficiency 4 1:55 PM DREDGE ENGINEER - 4 11:59 PM DREDGE ENGINEER Hospital Encounter [facility] Medical Office Building [address] [facility] [place] [address] Clear cell renal cell carcinoma, left (HCC) Discharge Disposition: Discharge to home or self care 4 Telephone [facility] Diabetes and Endocrinology [address] [place] [phone] Kim Huerta MD PCP Callback Request - Patient 4 1:15 PM DREDGE ENGINEER Office Visit [facility] Diabetes [facility] Endocrinology [address] [place] [phone] Kim Huerta MD Type 2 diabetes mellitus with hyperglycemia, without long-term current use of insulin (HCC) (Primary Dx); Hypertension associated with diabetes (HCC); Hyperlipidemia associated with type 2 diabetes mellitus (HCC); Vitamin D deficiency from Last 3 Months Allergies No known [...] shortness of breath 08/12/19 16 Active omega 1-sxh-zat-fish oil 1,000 mg (120 mg-180 mg) capsuleIndicati [...] 06/01/2023 Assessment & Plan (04/17/2024 2:06 PM DREDGE ENGINEER): Chronic, well controlled Continue lisinopril and metoprolol Assessment & Plan (09/21/2023 12:41 PM CDT): Chronic, well-controlled. Continue lisinopril. Update microalbumin Assessment & Plan (06/01/2023 12:01 PM DREDGE ENGINEER): Chronic problem. Controlled on current lisinopril 10mg daily, metoprolol XL 50mg nightly Hepatic cirrhosis 05/04/2023 Benign colon polyp 05/04/2023 IC (intermittent claudication) 12/31/2022 Syncope and collapse 07/23/2022 Type 2 diabetes mellitus wit h hyperglycemia, without long-term current use of insulin 07/23/2022 Assessment & Plan (04/17/2024 2:05 PM DREDGE ENGINEER): Chronic, overall well controlled with hemoglobin [...] discussed Assessment & Plan (06/01/2023 1:18 PM DREDGE ENGINEER): Chronic problem. Currently not taking any [...] that time. Aware that he can call/send [employer] message if he changes his mind about [...] analog. Assessment & Plan (07/23/2022 4:32 PM DREDGE ENGINEER): Hba1c was Lab Results Component Value [...] (09/17/2021): Added automatically from request for surgery [id number] Pelvic pain 01/24/2021 Overview (01/24/2021): Added automatically from request for surgery [id number] Benign prostatic hyperplasia 01/09/2021 Healthcare maintenance 02/15/2018 Assessment & Plan (02/15/2018 8:19 AM CDT): He reports having had a colonoscopy about 4 years ago removing small polyps. Elevated liver enzymes 02/11/2018 Plantar fasciitis 02/03/2018 Overview (02/03/2018): Added automatically from request for surgery [id number] S/P CABG (coronary artery bypass graft) 06/22/19 17 Essential hypertension 11/07/2015 Hyperlipidemia associated with type 2 diabetes nohelia daavlos 11/07/2015 Assessment & Plan (04/17/2024 2:03 PM DREDGE ENGINEER): Continue statin therapy Assessment & Plan (09/21/2023 12:41 PM CDT): Chronic, well-controlled. Continue statin therapy with rosuvastatin Assessment & Plan (06/01/2023 1:15 PM DREDGE ENGINEER): Chronic problem. Managed by cardiology. Currently taking Rosuvastatin 40mg. Last lipid panel: 01/21/23 LDL=97, BA=900. Assessment & Plan (01/21/2023 2:52 PM CDT): LDL goal under 100 Diet and exercise Continue Rosuvastatin Update lipid profile Atherosclerotic heart diseas e of [place] coronary artery without angina pectoris 05/21/2008 Dizziness and giddiness 03/05/2008 Family history of ischemic h eart disease and other diseases of the circulatory system 03/05/2008 Immunizations Immunization Administration Dates Next Due Influenza, [...] drink = 0.6 oz pur e alcohol) [facility] Utilities Answer Date Recorded In the past 12 months has e [employer], gas, oil, or water [employer] threatened to shut off services in your [...] often do you attend chur ch or zoroastrian services? 1 to 4 times per year 09/29/2023 Do you belong to any clubs o r organizations such as baptist groups, unions, fraternal or athletic groups, or [...] place to sleep or slept in a long-term (including now)? No 09/29/2023 Personal Safety Answer Date Recorded Have you ever been in or are you currently in a harmful physical or emotional relationship or is someone making you feel afraid or unsafe? Denies 06/23/2024 Sex and Gender Information Value Date Recorded Sex Assigned at Not on file Legal Sex Male 2:12 AM DREDGE ENGINEER Gender Identity Not on file Sexual Orientation Not on file Last Filed Vital Signs Vital Sign Reading Time Taken Comments Blood Pressure 113/87 06/23/2024 10:48 AM DREDGE ENGINEER Pulse 89 06/23/2024 10:48 AM DREDGE ENGINEER Temperature 36.2 C (97.2 F) 06/23/2024 10:28 AM DREDGE ENGINEER Respiratory Rate 18 06/23/2024 10:48 AM DREDGE ENGINEER Oxygen Saturation 94% 06/23/2024 10:48 AM DREDGE ENGINEER Inhaled Oxygen Concentration - - Weight 81.6 kg (180 lb) 06/23/2024 8:55 AM DREDGE ENGINEER Height 165.1 cm (5' 5 ) 06/23/2024 8:55 AM DREDGE ENGINEER Body Mass Index 29.95 06/23/2024 8:55 AM DREDGE ENGINEER Plan of Treatment Scheduled Procedures Name Priority Associated Diagnoses Date/Ti me BLADDER HYDRODISTENTION IC (interstitial cystitis) CYSTOSCOPY IC (interstitial cystitis) Goals Goal Patient Goal Type Associated Problems Recent Progress Patient-Stated? Author [facility] Fall Prevention Care Plan Chronic Care Management No change(04/15 9:53 AM DREDGE ENGINEER) Chani Serrato RN Note: Problem: Falls Goals: 1. Maintain strength and balance as able 2. Prevent falls and fractures 3. Maximize safety of living environment Strategies: - Educate on fall prevention and follow-up as needed - Recommend activity/exercise program - Refer to allied health as needed - Recommend healthy lifestyle strategies and compensatory methods as needed [facility] Chronic Pain Care Plan Chronic Care Management No change(04/15 9:53 AM DREDGE ENGINEER) Chani Serrato RN Note: Problem: Chronic Pain Goals: 1. Minimize further functional decline 2. Maximize quality of life 3. Control pain Strategies: - Activity/exercise program recommendation - Conservative stepwise pain medicine strategy with multi-disciplinary approach - Recommend healthy lifestyle strategies and compensatory methods as needed Medical Devices Implanted Type Area Business Analyst Device Identifier Shelf Expiration Date Model / Serial / Lot Chest Sternal Wires Chest Description:Cabg x [id number] Procedures Procedure Name Priority Date/Time Associated Diagnosis Comments ESOPHAGOGASTRODUODENOSCOPY 06/23 10:07 AM DREDGE ENGINEER Hepatic cirrhosis, unspecified hepatic cirrhosis type, unspecified whether ascites present (HCC) Elevated liver enzymes Healthcare maintenance EGD 06/23/2024 10:03 AM DREDGE ENGINEER POCT GLUCOSE DEVICE Routine 06/23/2024 9:[address] ABDOMEN W WO CONTRAST Schedule Routine, Read Routine (OP Routine) 04/18/2024 2:25 PM DREDGE ENGINEER Clear cell renal cell carcinoma, left (HCC) POCT CREATININE FOR CONTRAST EVALUATION Routine 04/18/2024 2:19 PM DREDGE ENGINEER EGFR Routine 04/18/2024 1:41 PM DREDGE ENGINEER Type 2 diabetes mellitus with hyperglycemia, without long-term current use of insulin (HCC) VITAMIN D 25 HYDROXY Routine 04/18/2024 1:41 PM DREDGE ENGINEER Vitamin D deficiency THYROID FUNCTION CASCADE Routine 1:41 PM DREDGE ENGINEER Type 2 diabetes mellitus with hyperglycemia, without long-term current use of insulin (HCC) COMPREHENSIVE METABOLIC PANEL Routine 1:41 PM DREDGE ENGINEER Type 2 diabetes mellitus with hyperglycemia, without long-term current use of insulin (HCC) POCT HEMOGLOBIN A1C Routine 04/17/2024 1:13 PM DREDGE ENGINEER Type 2 diabetes mellitus with hyperglycemia, without long-term current use of insulin (HCC) POCT GLUCOSE Routine 04/17/2024 1:13 PM DREDGE ENGINEER Type 2 diabetes mellitus with hyperglycemia, without long-term current use of insulin (HCC) ALBUMIN CREATININE RATIO, URINE Routine 09/21/2023 1:01 PM CDT Type 2 diabetes mellitus with hyperglycemia, without long-term current use of insulin (CMS/HCC) (HCC) PSA DIAGNOSTIC Routine 06/15/2023 2:16 PM DREDGE ENGINEER Encounter for screening for malignant neoplasm of prostate Benign enlargement of prostate LIPID PANEL Routine 01/21/2023 3:16 PM CDT Hyperlipidemia associated with type 2 diabetes mellitus (HCC) HM DIABETES EYE EXAM Routine 10/23/2022 9:30 AM CDT COLONOSCOPY 04/27/2022 11:17 AM DREDGE ENGINEER HEPATITIS PANEL, ACUTE Routine 10:20 AM DREDGE ENGINEER from Last 3 Months or Most Recently Relevant to Health Maintenance Results * EGD (06/23/2024 10:03 AM DREDGE ENGINEER) Anatomical Region Laterality Modality Other Narrative Procedure Note Enriqueta Pardo MD - 06/23/2024 10:03 AM CST GI ENDOSCOPY [facility] Patient Name: Gab Braun Procedure Date: 06/23/2024 10:03 AM Date of : 1960 Admit Type: Outpatient Age: 64 Gender: Male Attending MD: Enriqueta Beckford M.D. Room: [facility] ENDOSCOPY ROOM 3 Note Status: [...] passed under direct vision. The GIF [id number] endoscope was introducedthrough the mouth, and advanced [...] Result * POCT glucose (06/23/2024 9:00 AM DREDGE ENGINEER) Glucose, POC 129 70 - 199 mg/dL Blood 06/23/2024 9:00 AM DREDGE ENGINEER 06/23/2024 9:00 AM DREDGE ENGINEER us Enriqueta Pardo MD LAB POCT ORDERABLES - DEVICE Final Result [facility] [place] [address] * CT Abdomen W WO Contrast (04/18/2024 2:25 PM DREDGE ENGINEER) Anatomical Region Laterality Modality Body N/A Computed Tomogra phy 04/19/2024 5:42 PM DREDGE ENGINEER Narrative 04/19/2024 5:45 PM DREDGE ENGINEER EXAM DESCRIPTION: CT ABDOMEN W WO [...] Florencio Selby M.D. JA: SHERYL Report ID: [id number] Reading Location: [place] [address] Procedure Note Florencio Selby MD - 04/19/2024 [...] Florencio Selby M.D. JA: SHERYL Report ID: [id number] Reading Location: [place] [address] Cici Contreras MD [facility] PROCEDURES Final Result * (ABNORMAL) POCT creatinine for contrast evaluation (04/18/2024 2:19 PM DREDGE ENGINEER) Creatinine POC 1.40(H) 0.80 - 1.30 mg/dL Comment:Testing performed by : [facility], [address] [place] [address]., [address] Blood 04/18/2024 2:19 PM DREDGE ENGINEER 04/18/2024 2:19 PM DREDGE ENGINEER us Tomas Hernández MD POINT OF CARE TEST ORDERABLE S Final Result Performing Organization Address City/[facility] Co de Phone Number [facility] [address] [address] * eGFR (04/18/2024 1:41 PM DREDGE ENGINEER) eGFR 74 >=60 mL/min/1. 73 m2 [...] was last reviewed 2021. Testing performed by: [facility], [address] [place] [address]., [address] Blood 04/18/2024 1:41 PM DREDGE ENGINEER 04/18/2024 2:30 PM DREDGE ENGINEER us Kim Rivera MD LAB BLOOD ORDERABLE S Final Result Performing Organization Address City/[facility]/ZIP Co de Phone Number [facility]ANTAL [address] [place] [address] * Thyroid Function Coke (04/18/2024 1:41 PM DREDGE ENGINEER) TSH 3.16 0.30 - 4.20 mcIUnit/mL Comment:Testing performed by : [address] [address] Blood 04/18/2024 1:41 PM DREDGE ENGINEER 04/18/2024 2:30 PM DREDGE ENGINEER Kim Rivera MD LAB BLOOD ORDERABLE S Final Result Performing Organization Address [facility] Co de Phone Number [address] [place] [address] * Vitamin D 25 hydroxy (04/18/2024 1:41 PM DREDGE ENGINEER) [facility] Vitamin D 25-OH 36.0 30.0 - 80.0 ng/mL Blood 04/18/2024 1:41 PM DREDGE ENGINEER 04/18/2024 5:17 PM DREDGE ENGINEER Kim Rivera MD LAB BLOOD ORDERABLE S Final Result Performing Organization Address [facility] de Phone Number [address] [address] * (ABNORMAL) Comprehensive metabolic panel (04/18/2024 1:41 PM DREDGE ENGINEER) [facility] Sodium 139 135 - 145 mmol/L Comment:Testing performed by : [address] [address] Potassium, pl 4.4 3.3 - 4.9 mmol/L [facility] Comment:Testing performed by : [address] [address] Chloride 101 97 - 110 mmol/L [facility] Comment:Testing performed by : [address] [address] CO2 25 22 - 32 mmol/L [facility] Comment:Testing performed by : [address] [address] Anion gap 13 2 - 15 mmol/L [facility] Comment:Testing performed by : [address] [address] BUN 30(H) 6 - 25 mg/dL [facility] Comment:Testing performed by : [address] [address] Creatinine 1.10 0.80 - 1.30 mg/dL [facility] Comment:Testing performed by : [address] [address] Glucose 94 70 - 199 mg/dL [facility] Comment: Interpretive Data Fasting glucose >/= 126 [...] classification and Diagnosis of Diabetes Diabetes Care 202; 46: S19-S40. Current interpretive data was last revised 2022. Testing performed by: [address] [address] Calcium 9.9 8.5 - 10.3 mg/dL [facility] Comment:Testing performed by : [address] [address] Bilirubin, total 0.3 0.1 - 1.2 mg/dL [facility] Comment:Testing performed by : [address] [address] Protein, pl 7.2 6.5 - 8.5 g/dL [facility] Comment:Testing performed by : [address] [address] Albumin 4.4 3.5 - 5.0 g/dL [facility] Comment:Testing performed by : [address] [address] Alk phos 74 40 - 130 Units/L [facility] Comment:Testing performed by : [address] [address] ALT 34 7 - 55 Units/L [facility] Comment:Testing performed by : [address] [address] AST 24 10 - 50 Units/L [facility] Comment:Testing performed by : [facility], [address] [place] [address]., [address] Blood 04/18/2024 1:41 PM DREDGE ENGINEER 04/18/2024 2:30 PM DREDGE ENGINEER Result Tyrone Rivera MD LAB BLOOD ORDERABLE S Final Result [facility] [address] [facility] Department [place] [address] * POCT hemoglobin A1c (04/17/2024 1:13 PM DREDGE ENGINEER) Hemoglobin A1C, POC 5.4 4.0 - 5.6 % Blood 04/17/2024 1:13 PM DREDGE ENGINEER Result Tyrone Rivera MD POINT OF CARE TEST ORDERABLES Final Result * POCT glucose (04/17/2024 1:13 PM DREDGE ENGINEER) Glucose Blood, POC 87 mg/dL Blood 04/17/2024 1:13 PM DREDGE ENGINEER Result Tyrone Rivera MD POINT OF CARE TEST ORDERABLES Final Result * (ABNORMAL) Albumin Creatinine Ratio, Urine (09/21/2023 1:01 PM CDT) Albumin Ur 68.9 mg/L Comment: Interpretive Data No reference range established. Current interpretive data was last revised 2018. Creatinine Ur 132.3 mg/dL [facility] Comment: Interpretive Data No reference range established. Current interpretive data was last revised 2018. Albumin Creatinine Ratio, Ur 52(H) 1 - 29 mg/g [facility] Urine 09/21/2023 1:01 PM CDT 09/21/2023 8:39 PM CDT Result [facility] us Victor Manuel Mcdaniel MD LAB URINE ORDERABLES Final Resul t [facility] THOMAS [address] [facility] [place] [address] * PSA diagnostic (06/15/2023 2:16 PM DREDGE ENGINEER) PSA-Total 0.25 <=5.40 ng/mL [facility] Comment: Interpretive [...] 21. Blood (Blood, Venous) 06/15/2023 2:16 PM DREDGE ENGINEER 06/15/2023 8:21 PM DREDGE ENGINEER us Tomassterling Hernández MD LAB BLOOD ORDERABLES Final R esult Performing Organization Address [facility] de Phone Number [facility]AL THOMAS [address] [place] [address] * (ABNORMAL) Lipid panel (01/21/2023 3:16 PM [...] on 2018. Non-HDL Cholesterol 159 mg/dL [facility] Comment: Interpretive Data Ages < [...] BLOOD ORDERABLES Final Resul t [facility] THOMAS [address] [place] [address] * (ABNORMAL) HM DIABETES EYE EXAM (10/23/2022 9:30 AM CDT) us Historical Provider HEALTH MAINTENANCE Edited Result - Final * COLONOSCOPY (04/27/2022 11:17 AM DREDGE ENGINEER) Anatomical Region Laterality Modality Other Narrative Procedure Note Marichuy Hays MD - 04/27/2022 11:17 AM CST GI ENDOSCOPY [facility] Patient Name: Gab Braun Procedure Date: 04/27/2022 11:17AM Date of : 1960 Admit Type: Outpatient Age: 61 Gender: Male Attending MD: Marichuy Hays M.D. Room: [facility] ENDOSCOPY ROOM 3 Note Status: [...] The scope was passed under direct vision.The [id number] endoscope was introduced through the anus and advanced to the terminal ileum. The colonoscopy was performed without difficulty. The patient tolerated the procedure well. The qualityof the bowel preparation was fair. The quality of the bowel preparation was evaluated using the BBPS([place] Bowel Preparation Scale) with scores of: RightColon [...] On: 04/27/2022 11:17 AM Recognized by the [place] [employer] for promoting quality in endoscopy Marichuy Hays MD ENDOSCOPY PROCEDURES Final Res ult * Hepatitis panel, acute (06/28/2019 10:20 AM DREDGE ENGINEER) Hep A IgM Negative Negative [facility] Hep B core IgM Negative Negative [facility] Hep C Ab Negative Negative [facility] HepBsAg Nonreactive Nonreactive [facility] Blood specimen (specimen) 06/28/2019 10:20 AM DREDGE ENGINEER 06/28/2019 10:20 AM DREDGE ENGINEER Casie Shaw MD LAB MICROBIOLOGY - GENERA L ORDERABLES Final Result [facility] [address] [place] [address] from Last 3 Months or Most Recently Relevant to Health Maintenance Insurance [employer] PPO [facility] ADVANTAGE CHOICE PPO Advance Directives For more information, please contact: [phone] * Full Code (Latest Code Status on [...] 10:17 AM 04/27/2022 5:07 PM Care Teams Accounts Payable Assistant Relationship Specialty Start Date End Date Tomas Hernández MD PCP - General 03/19/17 Francisco Domínguez MD [address] [place] [address] Referring Physician Internal Medicine 02/03/18
--- OUTSIDE RECORDS SUMMARY | 2024-07-12 09:46 | XMS_ITS | Encounter Summary ---
Author Organization [facility] Healthcare Address [address] [place] [address] Care Team Providers Care Sub Master Name Role Phone Tomas Hernández MD Primary Care Provider [phone] Francisco Domínguez MD Unavailable [phone] Reason for Visit * Reason Onset Date Comments Pre Arrival 03/02/2022 Encounter Details Date Type Department Care Team (Late st Contact Info) Description 03/02/[address] [facility] [address] [facility] 1st [place] [address] Sapna Sosa RN Pre Arrival [...] on file Legal Sex Male 2:12 AM CONCRETE STONE FINISHER Gender Identity Not on file Sexual Orientation Not on file documented as of this encounter Plan of Treatment Scheduled Procedures Name Priority Associated Diagnoses Date/Ti me BLADDER HYDRODISTENTION IC (interstitial cystitis) CYSTOSCOPY IC (interstitial cystitis) documented as of this encounter Goals Goal Patient Goal Type Associated Problems Recent Progress Patient-Stated? Author [facility] Fall Prevention Care Plan Chronic Care Management No change(04/15 9:53 AM CONCRETE STONE FINISHER) No Chani Vela RN Note: Problem: Falls Goals: 1. Maintain strength and balance as able 2. Prevent falls and fractures 3. Maximize safety of living environment Strategies: - Educate on fall prevention and follow-up as needed - Recommend activity/exercise program - Refer to allied health as needed - Recommend healthy lifestyle strategies and compensatory methods as needed [facility] Chronic Pain Care Plan Chronic Care Management No change(04/15 9:53 AM CONCRETE STONE FINISHER) No Chani Vela RN Note: Problem: Chronic Pain Goals: 1. Minimize further functional decline 2. Maximize quality of life 3. Control pain Strategies: - Activity/exercise program recommendation - Conservative stepwise pain medicine strategy with multi-disciplinary approach - Recommend healthy lifestyle strategies and compensatory methods as needed documented as of this encounter Visit Diagnoses Not on filedocumented in this encounter Care Teams Sub Master Relationship Specialty Start Date End Date Tomas Hernández MD PCP - General 03/19/17 Francisco Domínguez MD [address] [address] Referring Physician Internal Medicine 02/03/18 documented as of this encounter
--- OUTSIDE RECORDS SUMMARY | 2024-07-12 09:46 | XMS_ITS | Encounter Summary ---
Author Organization [facility] Address [address] [place] [address] Care Team Providers Care Dry Starch Supervisor Name Role Phone Tomas Hernández MD Primary Care Provider [phone] Encounter Details Date Type Department Care Team (Late st Contact Info) Description 01/04/2024 Lab Requisition [facility] - DermPath Lab [address] [facility], [place] [address] Casie Shaw MD [address] [facility] 3 [place] [address] Social History Tobacco Use Types Packs/Day Years [...] AM CDT) Case Report Dermatopathology Report Case: [id number] Authorizing Provider: Casie Shaw MD Collected: 01/04/2024 10:32 AM Ordering Location: [facility] Physician [facility] - Received: 01/04/2024 03:14 PM [...] specimen consists of a shave biopsy measuring 66y57h9 mm. Jar 0. 3:42 PM [facility] DERMATOPATHOLOGY LABORATORY Microscopic Description Specimen A. [...] characteristic determined by the Dermatopathology Laboratory at [facility], directed by Dr. Sapna Keith. These tests need not be, and therefore are not, approved by the [place] Food and Drug Administration. The tests are used for clinical purposes. Billing Codes Specimen Charges Stain Charges 80675 85783 1 1 59128 01773 1 1 4 3:42 PM CDT DERMATOPATHOLOGY LABORATORY Embedded Images 4 3:42 PM CDT DERMATOPATHOLOGY LABORATORY Pathology/Cytology TISSUE SPECIMEN FROM SKIN / Unknown 01/04/2024 10:32 AM CDT 01/04/2024 3:14 PM CDT Miscellaneous samples (specimen) TISSUE SPECIMEN FROM SKIN / Unknown 01/04/2024 10:32 AM CDT 01/04/2024 3:14 PM CDT Casie Shaw MD LAB - PATHOLOGY/CYTO LOGY ORDERABLES Performing Organization Address City/State/[facility] Co de Phone Number DERMATOPATHOLOGY LABORATORY [facility] - Department of Dermatology [facility] [address] [place] [address], [address] Floor [address] [phone] documented in this encounter Visit Diagnoses Not on filedocumented in this encounter Care Teams Dry Starch Supervisor Relationship Specialty Start Date End Date Tomas Hernández MD [address] [place] [address] PCP - General Family Medicine 04/30/16 documented as of this encounter
--- OUTSIDE RECORDS SUMMARY | 2024-07-12 09:46 | XMS_ITS | Encounter Summary ---
Author Organization [facility] Address [address] [facility] [address] [place] [address] Care Team Providers Care Retail Inventory Control Clerk Name Role Phone Tomas Hernández MD Primary Care Provider [phone] Encounter Details Date Type Department Care Team (Late st Contact Info) Description 11/05/2022 Lab Requisition [facility]ician [facility] - DermPath Lab [address] [facility], [place] [address] Casie Shaw MD [address] [facility] 3 [place] [address] Social History Tobacco Use Types Packs/Day Years [...] PM CDT) Case Report Dermatopathology Report Case: [id number] Authorizing Provider: Casie Shaw MD Collected: 11/05/2022 02:23 PM Ordering Location: [facility] DermPath Lab Received: 11/06/2022 01:27 PM Pathologist: Shaniqua Duran MD Specimen: Skin, left forearm 06/26/202 3 12:49 PM CDT DERMATOPATHOLOGY LABORATORY Final Diagnosis Specimen A. SKIN, left forearm: BENIGN VERRUCOUS KERATOSIS (L82.1) 3 12:49 PM CDT DERMATOPATHOLOGY LABORATORY Clinical History PN vs. SCC Mcfarlan Papule 3 12:49 PM CDT DERMATOPATHOLOGY LABORATORY [...] characteristic determined by the Dermatopathology Laboratory at [facility], directed by Dr. Sapna Keith. These tests need not be, and therefore are not, approved by the [place] Food and Drug Administration. The tests are used for clinical purposes. Billing Codes Specimen Charges Stain Charges 37997 1 3 12:49 PM CDT DERMATOPATHOLOGY LABORATORY Embedded Images 3 12:49 PM CDT DERMATOPATHOLOGY LABORATORY Pathology/Cytolo gy TISSUE SPECIMEN FROM SKIN / Unknown 11/05/2022 2:23 PM CDT 11/06/2022 1:27 PM CDT Casie Shaw MD LAB - PATHOLOGY/CYTO LOGY ORDERABLES DERMATOPATHOLOGY LABORATORY [facility] - Department of Dermatology [address], 3[address] [phone] documented in this encounter Visit Diagnoses Not on filedocumented in this encounter Care Teams Retail Inventory Control Clerk Relationship Specialty Start Date End Date Tomas Hernández MD [address] [place] [address] PCP - General Family Medicine 04/30/16 documented as of this encounter
--- OUTSIDE RECORDS SUMMARY | 2024-07-12 09:46 | XMS_ITS | Encounter Summary ---
Author Organization [facility] Address [address] [facility] [place] [address] Care Team Providers Care Investment Professional Name Role Phone Tomas Hernández MD Primary Care Provider [phone] Encounter Details Date Type Department Care Team (Late st Contact Info) Description 06/09/2019 Lab Requisition [facility] DermPath Lab [address] [facility], [place] [address] Casie Shaw MD [address] [facility] 3 [place] [address] Social History Tobacco Use Types Packs/Day Years [...] Comments DERMATOPATHOLOGY Routine 06/08/2019 12:0 0 AM LEASING MACHINE TENDER documented in this encounter Results * DERMATOPATHOLOGY (06/08/2019 12:00 AM LEASING MACHINE TENDER) Case Report Dermatopathology Report Case: [id number] Authorizing Provider: Casie Shaw MD Collected: 06/08/2019 12:00 AM Ordering Location: [facility] DermPath Lab Received: 06/09/2019 09:30 AM Pathologist: Aisha Perkins MD Specimens: A) - Skin, right ant neck B) - Skin, left back 0 1:31 PM LEASING MACHINE TENDER DERMATOPATHOLOGY LABORATORY Final Diagnosis Specimen A. SKIN, right ant neck: ACTINIC KERATOSIS, ERODED (L57.0) Specimen B. SKIN, left back: ACTINIC KERATOSIS (L57.0) 0 1:31 PM [facility] DERMATOPATHOLOGY LABORATORY Clinical History A-B: R/O BCC, SCC, AK. Sandoval papule. 0 1:31 PM [facility] DERMATOPATHOLOGY LABORATORY Gross Description Specimen A: Received is one formalin filled container labeled with the patient's name and designated right ant neck. The specimen consists of a shave measuring 8z3j5hp. Jar 0. Specimen B: Received is one formalin filled container labeled with the patient's name and designated left back. The specimen consists of a shave measuring 6e2m8mc. Jar 0. 0 1:31 PM [facility] DERMATOPATHOLOGY LABORATORY Microscopic Description Specimen A. [...] keratinocytes with nuclear pleomorphism. 0 1:31 PM [facility] DERMATOPATHOLOGY LABORATORY Disclaimer An external and internal [...] purposes. Billing Codes Specimen Charges Stain Charges 00891 29259 1 1 0 1:31 PM [facility] DERMATOPATHOLOGY LABORATORY Embedded Images 0 1:31 PM [facility] DERMATOPATHOLOGY LABORATORY Pathology/Cytology TISSUE SPECIMEN FROM SKIN / Unknown 06/08/2019 06/09/2019 9:30 AM LEASING MACHINE TENDER Miscellaneous samples (specimen) TISSUE SPECIMEN FROM SKIN / Unknown 06/08/2019 06/09/2019 9:30 AM LEASING MACHINE TENDER Casie Shaw MD LAB - PATHOLOGY/CYTO LOGY ORDERABLES DERMATOPATHOLOGY LABORATORY [facility] - Department of Dermatology [address] [place] [address], 5th Floor Lab [address] [phone] documented in this encounter Visit Diagnoses Not on filedocumented in this encounter Care Teams Investment Professional Relationship Specialty Start Date End Date Tomas Hernández MD [address] [place] [address] PCP - General Family Medicine 04/30/16 documented as of this encounter
--- OUTSIDE RECORDS SUMMARY | 2024-07-12 09:46 | XMS_ITS | Referral Summary ---
Author Organization [facility] Address [address] [facility] [place] [address] Care Team Providers Care Product Engineer Name Role Phone Tomas Hernández MD Primary Care Provider [phone] Source Comments [facility],non-owned Affiliates and Associated Physician Practices is amultiple site organization consisting of ambulatory clinics and hospital sitesin [place], [place], [place] and [place]. This disclosure is being madepursuant to the Care Everywhere program and may not contain all information available regarding this patient. Last updated 18.[facility] Allergies No known active allergies Medications * [...] Comments Blood Pressure 156/98 04/30/2016 9:37 AM SUPERVISOR DISPLAY FABRICATION Pulse 79 04/30/2016 9:37 AM SUPERVISOR DISPLAY FABRICATION Temperature 36.8 C (98.2 F) 04/30/2016 9:37 AM SUPERVISOR DISPLAY FABRICATION Respiratory Rate 16 04/30/2016 9:37 AM SUPERVISOR DISPLAY FABRICATION Oxygen Saturation 97% 04/30/2016 9:37 AM SUPERVISOR DISPLAY FABRICATION Inhaled Oxygen Concentration - - Weight 81.6 kg (180 lb) 04/30/2016 9:37 AM SUPERVISOR DISPLAY FABRICATION Height 165.1 cm (5' 5 ) 04/30/2016 9:37 AM SUPERVISOR DISPLAY FABRICATION Body Mass Index 29.95 04/30/2016 9:37 AM SUPERVISOR DISPLAY FABRICATION Plan of Treatment Not on file Care Teams Product Engineer Relationship Specialty Start Date End Date Tomas Hernández MD [address] [place] [address] PCP - General Family Medicine 04/30/16
--- OUTSIDE RECORDS SUMMARY | 2024-07-12 09:46 | XMS_ITS | CONTINUITY OF CARE DOCUMENT ---
Author Name rupert emery Address Unknown Organization [facility] Address [id number] [place] [address] [address] [place] [address] Phone [phone] Care Team Providers Care Boxer Operator Name Role Phone Paul Richardson MD Unavailable [phone] JOSE C MAHONEY, SERG F Unavailable JOSE C MAHONEY SERG F Unavailable PROBLEMS Condition Status Date Provider Notes DIZZINESS RESOLVED ON METOPROLOL active Paul Richardson MD 02/21 ECHO EF 60 active Paul Richardson MD FAMILY HX CARDIOVASCULAR DISEASE active Paul Richardson MD SYNCOPE AND COLLAPSE-02/21 CAROTID NEG active ? Edilson Barrientos RN ENCOUNTERS Date Type Provider Location Encounter Diag nosis - In-person encounter Office Visit Paul Richardson MD [place] 02/21 ECHO EF 60 - In-person encounter Office Visit Paul Richardson MD [place] [facility] DIZZINESS RESOLVED ON METOPROLOLSYNCOPE AND COLLAPSE-02/21 CAROTID NEGFAMILY HX CARDIOVASCULAR DISEASE VITAL SIGNS Date Observation Value Provider blood pressure, diastolic 87 mm[Hg] Eleazar Barrientos RN blood pressure, systolic 136 mm[Hg] Edilson Barrientos RN pulse rate 83 /min Edilson Barrientos RN oxygen saturation, oximetry 98 % Edilson Barrientos RN respiratory rate E&M 16 /min Edilson vargas RN weight E&M 184 [lb_av] Edilson Barrientos RN blood pressure, diastolic 87 mm[Hg] Eleazar Barrientos RN blood pressure, systolic 137 mm[Hg] Edilson Barrientos RN pulse rate 20 /min Edilson Barrientos RN oxygen saturation, oximetry 96 % Edilson Barrientos RN respiratory rate E&M 20 /min Edilson vargas RN weight E&M 185 [lb_av] Edilson Barrientos RN ALLERGIES No Known Drug Allergies HISTORY OF MEDICATION USE Medication Status Instructions Dates Provider Indications Com ments PRESORVISION active Edilson Barrientos RN FISH OIL 1000 MG ORAL CAPSULE active Edilson Barrientos RN NAPROXEN TABS active Edilson Barrientos RN TOPROL XL 50 MG ORAL TABLET EXTENDED RELEASE 24 HOUR completed ONE TAB DAILY - Edilson Barrientos RN SIMVASTATIN 40 MG ORAL TABLET active ONE TAB. DAILY Edilson Barrientos RN SOCIAL HISTORY Date Observation Value Provider social history E&M Marital Statu s: L quinn with family/friends E thnicity: Paul Richardson MD social history reviewed E&M reviewed Edislon Barrientos RN social history E&M Marital Statu s: L quinn with family/friends E thnicity: CaucasianMarital Status: L quinn with family/friends E thnicity: Paul Richardson MD social history reviewed E&M reviewed Edilson Barrientos RN physical exercise, frequency, days per week no [employer] caffeine use, averag e drinks per day yes [employer] alcohol use, average drinks per day none [employer] smoking status Non-smoker [employer] MENTAL STATUS Date Observation Value Provider assessment of judgme nt and insight E&M Alert and oriented to time, place and person. Mood and affect are normal. Edilson Barrientos RN assessment of judgme nt and insight E&M Alert and oriented to time, place and person. Mood and affect are normal. Edilson Barrientos RN INSURANCE PROVIDERS Payer name Policy type / Coverage type Joel guaman libertarian ID [id number] TREATMENT PLAN Date Name Performer office visit: T he following medications were removed from the medication list: Toprol Xl 50 Mg Tb24 (Metoprolol succinate) ..... One tab daily His updated medication list for this problem includes: Simvastatin 40 Mg Tabs (Simvastatin) ..... One tab. daily BP today: 136/87 Prior BP: 137/87 (03/05/2008) N uclear Stress Findings: 1. Normal Yony protocol exercise tolerance test. 2 . Normal left ventricular size and function with a calculated ejection fraction of 59%. 3 . Myocardial scintigraphy is normal without evidence for previous myocardial infarction or reversible ischemia. (03/07/2008) C arotid Doppler/Duplex: normal: (03/05/2008) Paul Richardson MD office visit: T he following medications were removed from the medication list: Toprol Xl 50 Mg Tb24 (Metoprolol succinate) ..... One tab daily His updated medication list for this problem includes: Simvastatin 40 Mg Tabs (Simvastatin) ..... One tab. daily BP today: 136/87 Prior BP: 137/87 (03/05/2008) N uclear Stress Findings: 1. Normal Yony protocol exercise tolerance test. 2 . Normal left ventricular size and function with a calculated ejection fraction of 59%. 3 . Myocardial scintigraphy is normal without evidence for previous myocardial infarction or reversible ischemia. (03/07/2008) C arotid Doppler/Duplex: normal: (03/05/2008) Paul Richardson MD office visit: H is updated medication list for this problem includes: Toprol Xl 50 Mg Tb24 (Metoprolol succinate) ..... One tab daily Orders: S tress Test - Nuclear (72088) S leep Study (*) Paul Richardosn MD office visit: H is updated medication list for this problem includes: Toprol Xl 50 Mg Tb24 (Metoprolol succinate) ..... One tab daily BP today: 137/87 Prior BP: / () Orders: E KG ([id number]) Paul Richardson MD Date Name Sleep Study Stress Test - Nuclea r HISTORY OF PROCEDURES Procedure Date Procedure Name Provider Procedure Notes S nahidus EKG Paul Richardson MD completed
--- OUTSIDE RECORDS SUMMARY | 2024-07-12 09:46 | XMS_ITS | Encounter Summary ---
Author Organization [facility] Address [address] [place] [address] Care Team Providers Care Manager Gift Name Role Phone Tomas Hernández MD Primary Care Provider [phone] Encounter Details Date Type Department Care Team (Late st Contact Info) Description 09/28/2019 Lab Requisition [facility] DermPath Lab [address] [facility], [place] [address] Casie Shaw MD [address] [facility] 3 [place] [address] Social History Tobacco Use Types Packs/Day Years [...] AM CDT) Case Report Dermatopathology Report Case: [id number] Authorizing Provider: Casie Shaw MD Collected: 09/27/2019 12:00 AM Ordering Location: [facility] DermPath Lab Received: 09/28/2019 06:40 AM Pathologist: Shaniqua Duran MD Specimen: Skin, right arm 0 12:20 PM CDT DERMATOPATHOLOGY LABORATORY Addendum 1 At the request of the diagnosing physician, technical component for Hull/MelanA was performed at [facility] Dermatopathology [facility]. 0 12:20 PM CDT DERMATOPATHOLOGY LABORATORY Addendum electronically signed by Shaniqua Duran MD on 10/02/2019 at 12:20 PM Clinical History AK vs SCC vs PSO, non-healing, eroded papule. 0 12:20 PM CDT DERMATOPATHOLOGY LABORATORY Gross Description Specimen A: Received is one formalin filled container labeled with the patient's name and designated right arm. The specimen consists of a shave measuring 23q6h9tu. Jar 0. [facility] Dermat[facility] performed the technical component only. [...] characteristic determined by the Dermatopathology Laboratory at [facility], directed by Dr. Sapna Keith. These tests need not be, and therefore are not, approved by the [place] Food and Drug Administration. The tests are used for clinical purposes. 0 12:20 PM CDT DERMATOPATHOLOGY LABORATORY Pathology/Cytolog y TISSUE SPECIMEN FROM SKIN / Unknown 09/27/2019 09/28/2019 6:40 AM CDT Casie Shaw MD LAB - PATHOLOGY/CYTO LOGY ORDERABLES DERMATOPATHOLOGY LABORATORY [facility] - Department of Dermatology [facility] [address], [facility] [phone] documented in this encounter Visit Diagnoses Not on filedocumented in this encounter Care Teams Manager Gift Relationship Specialty Start Date End Date Tomas Hernández MD [address] [place] [address] PCP - General Family Medicine 04/30/16 documented as of this encounter
== END 2024-07-12 09:02 | disposition home or self-care (01) ==
PROVIDERS: PCP Family Medicine; Visit Provider Family Medicine
DX: R47.01 Aphasia (principal); R41.0 Disorientation, unspecified
CPT/HCPCS: 70551

== ENCOUNTER 2025-04-18 13:48 | Outpatient (CLI) | payer OTHER, SELFPAY ==
[2025-04-18 14:25] LABS: Ammonia < 9 umol/L (9-30)
--- OUTSIDE RECORDS SUMMARY | 2025-04-18 15:02 | XMS_ITS | Encounter Summary ---
Author Organization [facility] Address [address] [place] [address] Care Team Providers Care Railway Shunter Name Role Phone Tomas Hernández MD Primary Care Provider Encounter Details Date Type Department Care Team (Late st Contact Info) Description 01/04/2024 Lab Requisition [facility] - DermPath Lab [address] [facility], [place] [address] Casie Shaw MD [address] [facility] 3 [place] [address] Social History Tobacco Use Types Packs/Day Years Used Date Smoking Tobacco: Never Sex and Gender Information Value Date Recorded Sex Assigned at Not on file Legal Sex Male 3:38 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 Gender Identity Not on file Sexual Orientation Not on file documented as of this encounter Plan of Treatment Not on file documented as of this encounter Procedures Procedure Name Priority Date/Time Associated Diagnosis Comments DERMATOPATHOLOGY Routine 01/04/2024 10:3 2 AM CDT documented in this encounter Results * DERMATOPATHOLOGY (01/04/2024 10:32 AM CDT) Case Report Dermatopathology Report Case: [id number] Authorizing Provider: Casie Shaw MD Collected: 01/04/2024 10:32 AM Ordering Location: [facility] Physician [facility] - Received: 01/04/2024 03:14 PM DermPath Lab Pathologist: Bel Duran MD Specimens: A) - Skin, right shoulder B) - Skin, left arm 3:42 PM CDT DERMATOPATHOLOGY LABORATORY Final Diagnosis Specimen A. SKIN, right shoulder: BASAL CELL CARCINOMA, NODULAR TYPE (C44.612) Specimen B. SKIN, left arm: SOLAR LENTIGO (L81.4) ACTINIC KERATOSIS, PIGMENTED (L57.0) (see microscopic description) 3:42 PM CDT DERMATOPATHOLOGY LABORATORY at 1542 CDT Clinical History A: R/O NMSC vs AD/PSO [...] specimen consists of a shave biopsy measuring 11y67t4 mm. Jar 0. 3:42 PM CDT DERMATOPATHOLOGY LABORATORY Microscopic Description Specimen [...] characteristic determined by the Dermatopathology Laboratory at [facility], directed by Dr. Sapna Keith. These tests need not be, and therefore are not, approved by the [place] Food and Drug Administration. The tests are used for clinical purposes. Billing Codes Specimen Charges Stain Charges 52998 70722 1 1 81818 98627 1 1 4 3:42 PM CDT DERMATOPATHOLOGY LABORATORY Embedded Images 3:42 PM CDT DERMATOPATHOLOGY LABORATORY Pathology/Cytology TISSUE SPECIMEN FROM SKIN / Unknown 01/04/2024 10:32 AM CDT 01/04/2024 3:14 PM CDT Miscellaneous samples (specimen) TISSUE SPECIMEN FROM SKIN / Unknown 01/04/2024 10:32 AM CDT 01/04/2024 3:14 PM CDT Casie Shaw MD LAB - PATHOLOGY/CYTOLOGY ORD ERABLES Final Result DERMATOPATHOLOGY LABORATORY [facility] - Department of Dermatology [facility] Specialized Medicine [address] [place] [address] [phone] documented in this encounter Visit Diagnoses Not on filedocumented in this encounter Care Teams Railway Shunter Relationship Specialty Start Date End Date Tomas Hernández MD [address] [place] [address] PCP - General Family Medicine 04/30/16 documented as of this encounter
--- OUTSIDE RECORDS SUMMARY | 2025-04-18 15:02 | XMS_ITS | Encounter Summary ---
Author Organization [facility] Address [address] [place] [address] Care Team Providers Care Staff Development Nurse Name Role Phone Tomas Hernández MD Primary Care Provider [phone] Francisco Domínguez MD Unavailable [phone] Reason for Visit * Reason Onset Date Comments Pre Arrival 03/02/2022 Encounter Details Date Type Department Care Team (Late st Contact Info) Description 03/02/2022 Telephone [facility] [address] [facility] 1st [place] [address] Sapna Sosa RN Pre Arrival [...] on file Legal Sex Male 2:12 AM WELL DRILLER Gender Identity Not on file Sexual Orientation Not on file documented as of this encounter Functional Status documented as of this encounter Plan of Treatment Upcoming Encounters Date Type Department Care Team (Late st Contact Info) Description 04/24/2025 9:45 AM WELL DRILLER Hospital Encounter [facility] [address] [place] [address] 04/30/2025 12:58 PM WELL DRILLER Hospital Encounter [facility] Operating Room [address] [place] [address] Bg Desai MD [address] [place] [address] 04/30/2025 12:58 PM WELL DRILLER - 04/30/2025 2:52 PM WELL DRILLER Surgery [facility] Operating Room [address] [place] [address] Bg Desai MD [address] [place] [address] BLADDER HYDRODISTENTION: KENALOG INJECTION FULGURATION OF HUNNER LESIONS Scheduled Procedures Name Priority Associated Diagnoses Date/Ti id BLADDER HYDRODISTENTION IC (interstitial cystitis) 04/30/2025 12:58 PM WELL DRILLER CYSTOSCOPY IC (interstitial cystitis) 04/30/2025 12:58 PM WELL DRILLER BLADDER HYDRODISTENTION IC (interstitial cystitis) CYSTOSCOPY IC (interstitial cystitis) documented as of this encounter Goals Goal Patient Goal Type Associated Problems Recent Progress Patient-Stated? Author CCM Fall Prevention Care Plan Chronic Care Management No change(04/15 9:53 AM WELL DRILLER) No Chani Vela, RN Note: Problem: Falls Goals: 1. Maintain strength and balance as able 2. Prevent falls and fractures 3. Maximize safety of living environment Strategies: - Educate on fall prevention and follow-up as needed - Recommend activity/exercise program - Refer to allied health as needed - Recommend healthy lifestyle strategies and compensatory methods as needed [facility] Chronic Pain Care Plan Chronic Care Management No change(04/15 9:53 AM WELL DRILLER) Chani Serrato, NATHALIE Note: Problem: Chronic Pain Goals: 1. Minimize further functional decline 2. Maximize quality of life 3. Control pain Strategies: - Activity/exercise program recommendation - Conservative stepwise pain medicine strategy with multi-disciplinary approach - Recommend healthy lifestyle strategies and compensatory methods as needed documented as of this encounter Visit Diagnoses Not on filedocumented in this encounter Care Teams Staff Development Nurse Relationship Specialty Start Date End Date Tomas Hernández MD PCP - General 03/19/17 Francisco Domínguez MD [address] [address] Referring Physician Internal Medicine 02/03/18 documented as of this encounter
--- OUTSIDE RECORDS SUMMARY | 2025-04-18 15:02 | XMS_ITS | Clinical Summary ---
Author Organization [facility] Address [address] [place] [address] Care Team Providers Care Javascript Developer Name Role Phone Francisco Domínguez MD Unavailable [phone] Tomas Hernández MD Primary Care Provider [phone] Allergies No known active allergies Medications aspirin [...] 06/22/19 17 Coronary artery disease invo [place]ving [place] coronary artery of [place] heart without angina pectoris 11/07/2015 Essential hypertension 11/07/2015 Mixed hyperlipidemia 11/07/2015 Immunizations Immunization Administration Dates Next Due Fluarix (IIV4) 03/21/2020 [...] 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 Not on file Not on fi le Last Filed Vital Signs Vital Sign Reading Time Taken Comments Blood Pressure 120/80 04/13/2022 11:10 AM CHARGE NURSE Pulse 87 04/13/2022 11:10 AM CHARGE NURSE Temperature 36.6 C (97.9 F) 04/07/2022 6:03 PM CHARGE NURSE Respiratory Rate 18 04/07/2022 6:03 PM CHARGE NURSE Oxygen Saturation 98% 04/07/2022 6:03 PM CHARGE NURSE Inhaled Oxygen Concentration - - Weight 84.4 kg (186 lb) 04/13/2022 11:10 AM CHARGE NURSE Height 162.6 cm (5' 4) 04/13/2022 11:10 AM CHARGE NURSE Body Mass Index 31.93 04/13/2022 11:10 AM CHARGE NURSE Plan of Treatment Health Maintenance Due Date Last Done Comments ASCVD Statin 1960 Colorectal Cancer Screening Colonoscopy (10 Years) 1958 Hepatitis C 1976 DTaP, Tdap and Td Vaccines (1 - Tdap) 1977 Zoster Vaccines (1 of 2) 2008 RSV Immunization or 60+ Years (1 - Risk 60-74 years 1-dose series) 2018 ASCVD LDL 03/01/2020 03/01/2019, 0212/2017, 12/16/2016, Additional history exists Pneumococcal Vaccine: 50+ Years (2 of 2 - PPSV23, PCV20, or PCV21) 06/23/2021 04/28/2021 COVID-19 Vaccine (1 - 2024- season) 2025 Influenza Adult (#1) 2025 04/28/2021, 03/21/2020, 06/12/2013 Hepatitis A Vaccines Aged Out No long er eligible based on patient's age to complete this topic Meningococcal B Vaccine Aged Out No l [...] to Health Maintenance Insurance [employer] Care Teams Javascript Developer Relationship Specialty Start Date End Date Tomas Hernández MD [address] [place] [address] PCP - General FAMILY PRACTICE 11/11/15 Francisco Domínguez MD [facility] [address] [place] [address] Sima Solderer Production Line CARDIOVASCULAR DISEASE 11/14/15
--- OUTSIDE RECORDS SUMMARY | 2025-04-18 15:02 | XMS_ITS | Encounter Summary ---
Author Organization [facility] Address [address] [facility] [place] [address] Care Team Providers Care Rail Car Mechanic Name Role Phone Tomas Hernández MD Primary Care Provider [phone] Encounter Details Date Type Department Care Team (Late st Contact Info) Description 08/21/2024 Lab Requisition [facility] - DermPath Lab [address] [facility] [place] [address] Casie Shaw MD [address] [facility] 3 [place] [address] Social History Tobacco Use Types Packs/Day Years Used Date Smoking Tobacco: Never Sex and Gender Information Value Date Recorded Sex Assigned at Not on file Legal Sex Male 3:38 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 Gender Identity Not on file Sexual Orientation Not on file documented as of this encounter Plan of Treatment Not on file documented as of this encounter Procedures Procedure Name Priority Date/Time Associated Diagnosis Comments DERMATOPATHOLOGY Routine 08/21/2024 7:55 AM CDT documented in this encounter Results * DERMATOPATHOLOGY (08/21/2024 7:55 AM CDT) Case Report Dermatopathology Report Case: [id number] Authorizing Provider: Casie Shaw MD Collected: 08/21/2024 07:55 AM Ordering Location: [facility] Physician [facility] - Received: 08/21/2024 02:32 PM DermPath Lab Pathologist: Shaniqua Duran MD Specimen: Skin, left neck 12:37 PM CDT DERMATOPATHOLOGY LABORATORY Final Diagnosis Specimen A. SKIN, left neck: ACTINIC KERATOSIS, INFLAMED (L57.0) 12:37 PM CDT DERMATOPATHOLOGY LABORATORY at 1237 CDT Clinical History PN vs ISK vs BCC 12:37 PM CDT DERMATOPATHOLOGY LABORATORY Gross Description Specimen A: Received is one formalin filled container labeled with the patient's name and designated left neck. The specimen consists of a shave biopsy measuring 7x6x1 mm. Jar 0. 12:37 PM CDT DERMATOPATHOLOGY LABORATORY Microscopic Description Specimen A. SKIN, left neck: There is focal parakeratosis. The lower half of the epidermis shows disorderly maturation of keratinocytes with nuclear pleomorphism. The lesion is inflamed. 12:37 PM CDT DERMATOPATHOLOGY LABORATORY Disclaimer An external [...] purposes. Billing Codes Specimen Charges Stain Charges 91804 1 12:37 PM CDT DERMATOPATHOLOGY LABORATORY Embedded Images 12:37 PM CDT DERMATOPATHOLOGY LABORATORY Pathology/Cytolo gy TISSUE SPECIMEN FROM SKIN / Unknown 08/21/2024 7:55 AM CDT 08/21/2024 2:32 PM CDT us Casie Shaw MD LAB - PATHOLOGY/CYTOLOGY ORD ERABLES Final Result DERMATOPATHOLOGY LABORATORY [facility] - Department of Dermatology [address], 3rd Floor [address] [phone] documented in this encounter Visit Diagnoses Not on filedocumented in this encounter Care Teams Rail Car Mechanic Relationship Specialty Start Date End Date Tomas Hernández MD [address] [place] [address] PCP - General Family Medicine 04/30/16 documented as of this encounter
--- OUTSIDE RECORDS SUMMARY | 2025-04-18 15:02 | XMS_ITS | Clinical Summary ---
Author Organization [facility] Address [address] [facility] [place] [address] Care Team Providers Care Condenser Tester Name Role Phone Tomas Hernández MD Primary Care Provider [phone] Source Comments [facility],non-owned Affiliates and Associated Physician Practices is amultiple site organization consisting of ambulatory clinics and hospital sitesin [place], [place], [place] and [place]. This disclosure is being madepursuant to the Care Everywhere program and may not contain all information available regarding this patient. Last updated 18.[facility] Allergies No known active allergies Medications * Be aware that medications may not be up to date on this document. Alwaysverify current medications with the patient. Fish Oil Active Multiple Vitamins-Minerals (OCUVITE PRESERVISION PO) Act amairani aspirin (ASPIRIN) 81 MG tablet Take 81 mg by mouth once daily Active rosuvastatin (CRESTOR) 10 MG tablet Take 10 mg by mouth once daily Active omeprazole (PRILOSEC) 40 MG capsule Take 40 mg by mouth daily before breakfast Active Metoprolol Succinate (TOPROL XL PO) Active Choline Fenofibrate (TRILIPIX PO) Active Albuterol Sulfate (VENTOLIN HFA IN) Ac tive OXYCODONE ER PO Acti ve benzonatate (TESSALON) 200 MG capsule Take 1 Cap by mouth 3 times daily 30 Cap 6 Active Social History Tobacco Use Types Packs/Day Years Used Date Smoking Tobacco: Never Sex and Gender Information Value Date Recorded Sex Assigned at Not on file 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 Gender Identity Not on file Sexual Orientation Not on file Last Filed Vital Signs Vital Sign Reading Time Taken Comments Blood Pressure 156/98 04/30/2016 9:37 AM SALES REPRESENTATIVE HEALTH INSURANCE Pulse 79 04/30/2016 9:37 AM SALES REPRESENTATIVE HEALTH INSURANCE Temperature 36.8 C (98.2 F) 04/30/2016 9:37 AM SALES REPRESENTATIVE HEALTH INSURANCE Respiratory Rate 16 04/30/2016 9:37 AM SALES REPRESENTATIVE HEALTH INSURANCE Oxygen Saturation 97% 04/30/2016 9:37 AM SALES REPRESENTATIVE HEALTH INSURANCE Inhaled Oxygen Concentration - - Weight 81.6 kg (180 lb) 04/30/2016 9:37 AM SALES REPRESENTATIVE HEALTH INSURANCE Height 165.1 cm (5' 5) 04/30/2016 9:37 AM SALES REPRESENTATIVE HEALTH INSURANCE Body Mass Index 29.95 04/30/2016 9:37 AM SALES REPRESENTATIVE HEALTH INSURANCE Plan of Treatment Health Maintenance Due Date Last Done Comments COLOGUARD (AGES 45-75) - COL ON CA SCREENING 1958 COLON MONITORING 1958 COLONOSCOPY - COLON CA SCREENING 1958 CT COLONOGRAPHY - COLON CA SCREENING 1958 Colorectal Cancer Screening 1958 FIT - COLON CA SCREENING 1958 FLEX SIG - COLON CA SCREENING 1958 MEDICARE AWV 12 MONTHS 1958 HEPATITIS C SCREENING 05/28/1976 DTAP/TDAP/TD VACCINES (1 - Tdap) 1977 PNEUMOCOCCAL VACCINE 50+ (1 of 1 - PCV) 2008 ZOSTER VACCINE (1 of 2) 2008 DEPRESSION SCREENING 05/17/2024 COVID-19 VACCINE (1 - 2024-2 6 season) 2025 INFLUENZA VACCINE (#1) 2025 Respiratory Syncytial Virus (RSV) Vaccine Pt: or [...] to complete this topic MENINGOCOCCAL (Group B) VACC INE SHARED DECISION-MAKING Aged Out No longer eligibl e based on patient's age to complete this topic MENINGOCOCCAL GROUPS A/C/Y/W VACCINE Aged Out No longer eligible b ased on patient's age to complete this topic Insurance [facility] MEDICARE [facility] Care Teams Condenser Tester Relationship Specialty Start Date End Date Tomas Hernández MD [address] [place] [address] PCP - General Family Medicine 04/30/16
--- OUTSIDE RECORDS SUMMARY | 2025-04-18 15:02 | XMS_ITS | Encounter Summary ---
Author Organization [facility] Address [address] [place] [address] Care Team Providers Care Fire Adjuster Name Role Phone Tomas Hernández MD Primary Care Provider [phone] Francisco Domínguez MD Unavailable [phone] Encounter Details Date Type Department Care Team (Late st Contact Info) Description 04/30/2017 [facility] Nuclear Medicine [address] [place] [address] Maryam Plasencia, RT Social History Tobacco Use Types Packs/Day Years Used Date Smoking Tobacco: Never Smokeless Tobacco: Never Alcohol Use Standard Drinks/Week Comments No 0 (1 standard drink = 0.6 oz pur e alcohol) Sex and Gender Information Value Date Recorded Sex Assigned at Not on file Legal Sex Male 2:12 AM CERTIFIED PROSTHETIST/ORTHOTIST Gender Identity Not on file Sexual Orientation Not on file documented as of this encounter Functional Status documented as of this encounter Plan of Treatment Upcoming Encounters Date Type Department Care Team (Late st Contact Info) Description 04/24/2025 9:45 AM CERTIFIED PROSTHETIST/ORTHOTIST Hospital Encounter [facility] [address] [place] [address] 04/30/2025 12:58 PM CERTIFIED PROSTHETIST/ORTHOTIST Hospital Encounter [facility] Operating Room [address] [place] [phone] Bg Desai MD [address] [facility] [address] [place] [address] 04/30/2025 12:58 PM CERTIFIED PROSTHETIST/ORTHOTIST - 04/30/2025 2:52 PM CERTIFIED PROSTHETIST/ORTHOTIST Surgery [facility] Operating Room [address] [place] [address] Bg Desai MD [address] [facility] [address] [place] [address] BLADDER HYDRODISTENTION: KENALOG INJECTION FULGURATION OF HUNNER LESIONS Scheduled Procedures Name Priority Associated Diagnoses Date/Ti me BLADDER HYDRODISTENTION IC (interstitial cystitis) 04/30/2025 12:58 PM CERTIFIED PROSTHETIST/ORTHOTIST CYSTOSCOPY IC (interstitial cystitis) 04/30/2025 12:58 PM CERTIFIED PROSTHETIST/ORTHOTIST BLADDER HYDRODISTENTION IC (interstitial cystitis) CYSTOSCOPY IC [...] 04/30/2017 documented in this encounter Care Teams Fire Adjuster Relationship Specialty Start Date End Date Tomas Hernández MD PCP - General 03/19/17 Francisco Domínguez MD [address] [address] Referring Physician Internal Medicine 02/03/18 documented as of this encounter
--- OUTSIDE RECORDS SUMMARY | 2025-04-18 15:02 | XMS_ITS | Encounter Summary ---
Author Organization [facility] Address [address] [facility] [place] [address] Care Team Providers Care Blood Tester Fowl Name Role Phone Tomas Hernández MD Primary Care Provider [phone] Encounter Details Date Type Department Care Team (Late st Contact Info) Description 09/28/2019 Lab Requisition [facility] DermPath Lab [address] [facility], [place] [address] Casie Shaw MD [address] [facility] 3 [place] [address] Social History Tobacco Use Types Packs/Day Years Used Date Smoking Tobacco: Never Sex and Gender Information Value Date Recorded Sex Assigned at Not on file 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 Gender Identity Not on file Sexual Orientation Not on file documented as of this encounter Plan of Treatment Not on file documented as of this encounter Procedures Procedure Name Priority Date/Time Associated Diagnosis Comments DERMATOPATH TECHNICAL REPORT Routine 09/27/2019 12:00 AM CDT documented in this encounter Results * DERMATOPATH TECHNICAL REPORT (09/27/2019 12:00 AM CDT) Case Report Dermatopathology Report Case: [id number] Authorizing Provider: Casie Shaw MD Collected: 09/27/2019 12:00 AM Ordering Location: [facility] Care DermPath Lab Received: 09/28/2019 06:40 AM Pathologist: Shaniqua Duran MD Specimen: Skin, right arm 0 12:20 PM CDT DERMATOPATHOLOGY LABORATORY Addendum 1 At the request of the diagnosing physician, technical component for [place]/MelanA was performed at [facility] Dermatopathology Laboratory. 0 12:20 PM CDT DERMATOPATHOLOGY LABORATORY Addendum electronically signed by Shaniqua Duran MD on 10/02/2019 at 1220 CDT Clinical History AK vs SCC vs PSO, non-healing, eroded papule. 0 12:20 PM CDT DERMATOPATHOLOGY LABORATORY Gross Description Specimen A: Received is one formalin filled container labeled with the patient's name and designated right arm. The specimen consists of a shave measuring [id number]. Jar 0. [facility] Dermatopathology Laboratory performed the technical component [...] characteristic determined by the Dermatopathology Laboratory at [facility], directed by Dr. Sapna Keith. These tests need not be, and therefore are not, approved by the [place] Food and Drug Administration. The tests are used for clinical purposes. 0 12:20 PM CDT DERMATOPATHOLOGY LABORATORY at 1329 CDT Pathology/Cytolog y TISSUE SPECIMEN FROM SKIN / Unknown 09/27/2019 09/28/2019 6:40 AM CDT us Casie Shaw MD LAB - PATHOLOGY/CYTOLOGY ORD ERABLES Edited Result - Final DERMATOPATHOLOGY LABORATORY [facility] - Department of Dermatology [facility]/[address] [address], [facility] [phone] documented in this encounter Visit Diagnoses Not on filedocumented in this encounter Care Teams Blood Tester Fowl Relationship Specialty Start Date End Date Tomas Hernández MD [address] [place] [address] PCP - General Family Medicine 04/30/16 documented as of this encounter
--- OUTSIDE RECORDS SUMMARY | 2025-04-18 15:02 | XMS_ITS | Encounter Summary ---
Author Organization [facility] Address [address] [facility] [place] [address] Care Team Providers Care Jackerman Name Role Phone Tomas Hernández MD Primary Care Provider [phone] Encounter Details Date Type Department Care Team (Late st Contact Info) Description 06/09/2019 Lab Requisition [facility] DermPath Lab [address] [facility], [place] [address] Casie Shaw MD [address] [facility] 3 [place] [address] Social History Tobacco Use Types Packs/Day Years Used Date Smoking Tobacco: Never Sex and Gender Information Value Date Recorded Sex Assigned at Not on file 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 Gender Identity Not on file Sexual Orientation Not on file documented as of this encounter Plan of Treatment Not on file documented as of this encounter Procedures Procedure Name Priority Date/Time Associated Diagnosis Comments DERMATOPATHOLOGY Routine 06/08/2019 12:0 0 AM ROLLOFF TRUCK DRIVER documented in this encounter Results * DERMATOPATHOLOGY (06/08/2019 12:00 AM ROLLOFF TRUCK DRIVER) Case Report Dermatopathology Report Case: [id number] Authorizing Provider: Casie Shaw MD Collected: 06/08/2019 12:00 AM Ordering Location: [facility] DermPath Lab Received: 06/09/2019 09:30 AM Pathologist: Aisha Perkins MD Specimens: A) - Skin, right ant neck B) - Skin, left back 0 1:31 PM [facility] DERMATOPATHOLOGY LABORATORY Final Diagnosis Specimen A. SKIN, right ant neck: ACTINIC KERATOSIS, ERODED (L57.0) Specimen B. SKIN, left back: ACTINIC KERATOSIS (L57.0) 0 1:31 PM [facility] DERMATOPATHOLOGY LABORATORY at 1331 ROLLOFF TRUCK DRIVER Clinical History A-B: R/O BCC, SCC, AK. [place] papule. 0 1:31 PM [facility] DERMATOPATHOLOGY LABORATORY Gross Description Specimen A: Received is one formalin filled container labeled with the patient's name and designated right ant neck. The specimen consists of a shave measuring 7n4x5je. Jar 0. Specimen B: Received is one formalin filled container labeled with the patient's name and designated left back. The specimen consists of a shave measuring 1q3p5bg. Jar 0. 0 1:31 PM [facility] DERMATOPATHOLOGY LABORATORY Microscopic Description Specimen A. [...] keratinocytes with nuclear pleomorphism. 0 1:31 PM [facility] DERMATOPATHOLOGY LABORATORY Disclaimer An external and [...] purposes. Billing Codes Specimen Charges Stain Charges [id number] [id number] 1 1 0 1:31 PM [facility] DERMATOPATHOLOGY LABORATORY Embedded Images 0 1:31 PM [facility] DERMATOPATHOLOGY LABORATORY Pathology/Cytology TISSUE SPECIMEN FROM SKIN / Unknown 06/08/2019 06/09/2019 9:30 AM ROLLOFF TRUCK DRIVER Miscellaneous samples (specimen) TISSUE SPECIMEN FROM SKIN / Unknown 06/08/2019 06/09/2019 9:30 AM ROLLOFF TRUCK DRIVER Casie Shaw MD LAB - PATHOLOGY/CYTOLOGY ORD ERABLES Final Result DERMATOPATHOLOGY LABORATORY [facility] - Department of Dermatology [address] [place] [address], 5th Floor Lab [address] [phone] documented in this encounter Visit Diagnoses Not on filedocumented in this encounter Care Teams Jackerman Relationship Specialty Start Date End Date Tomas Hernández MD [address] [place] [address] PCP - General Family Medicine 04/30/16 documented as of this encounter
--- OUTSIDE RECORDS SUMMARY | 2025-04-18 15:02 | XMS_ITS | Encounter Summary ---
Author Organization [facility] Address [address] [place] [address] Care Team Providers Care Wall Scraper Name Role Phone Tomas Hernández MD Primary Care Provider [phone] Encounter Details Date Type Department Care Team (Late st Contact Info) Description 11/05/2022 Lab Requisition [facility] - DermPath Lab [address] [place] [address] Casie Shaw MD [address] [place] [address] Social History Tobacco Use Types Packs/Day Years Used Date Smoking Tobacco: Never Sex and Gender Information Value Date Recorded Sex Assigned at Not on file Legal Sex Male 3:38 PM [employer] Gender Identity Not on file Sexual Orientation Not on file documented as of this encounter Plan of Treatment Not on file documented as of this encounter Procedures Procedure Name Priority Date/Time Associated Diagnosis Comments DERMATOPATHOLOGY Routine 11/05/2022 2:23 PM CDT documented in this encounter Results * DERMATOPATHOLOGY (11/05/2022 2:23 PM CDT) Case Report Dermatopathology Report Case: [id number] Authorizing Provider: Casie Shaw MD Collected: 11/05/2022 02:23 PM Ordering Location: [facility] Lab Received: 11/06/2022 01:27 PM Pathologist: Shaniqua Duran MD Specimen: Skin, left forearm 06/26/202 3 12:49 PM CDT DERMATOPATHOLOGY LABORATORY Final Diagnosis Specimen A. SKIN, left forearm: BENIGN VERRUCOUS KERATOSIS (L82.1) 3 12:49 PM CDT DERMATOPATHOLOGY LABORATORY at 1249 CDT Clinical History PN vs. SCC Deport Papule 3 12:49 PM CDT DERMATOPATHOLOGY LABORATORY Gross Description Specimen A: Received is one formalin filled container labeled with the patient's name and designated left forearm. The specimen consists of a shave biopsy measuring 10x8x3 mm. Jar 0. 3 12:49 PM CDT DERMATOPATHOLOGY LABORATORY Microscopic Description [...] characteristic determined by the Dermatopathology Laboratory at [facility], directed by Dr. Sapna Keith. These tests need not be, and therefore are not, approved by the [place] Food and Drug Administration. The tests are used for clinical purposes. Billing Codes Specimen Charges Stain Charges 21983 1 3 12:49 PM CDT DERMATOPATHOLOGY LABORATORY Embedded Images 3 12:49 PM CDT DERMATOPATHOLOGY LABORATORY Pathology/Cytolo gy TISSUE SPECIMEN FROM SKIN / Unknown 11/05/2022 2:23 PM CDT 11/06/2022 1:27 PM CDT us Casie Shaw MD LAB - PATHOLOGY/CYTOLOGY ORD ERABLES Final Result DERMATOPATHOLOGY LABORATORY [facility] - Department of Dermatology [address], [address] [phone] documented in this encounter Visit Diagnoses Not on filedocumented in this encounter Care Teams Wall Scraper Relationship Specialty Start Date End Date Tomas Hernández MD [address] [place] [address] PCP - General Family Medicine 04/30/16 documented as of this encounter
--- OUTSIDE RECORDS SUMMARY | 2025-04-18 15:02 | XMS_ITS | Clinical Summary ---
Author Organization [facility] Address [address] [place] [address] Care Team Providers Care Bull Bucker Name Role Phone Tomas Hernández MD Primary Care Provider Francisco Domínguez MD Unavailable [phone] Allergies No known active allergies Medications omeprazole (PriLOSEC) 40 mg capsuleIndicatio ns:Treatment of Non-Bleeding Gastric Disorder Take 1 capsule (40 mg total) by mouth nightly Active lisinopril (PRINIVIL,ZESTRI L) 10 mg tabletIndication s:hypertension Take 1 tablet (10 mg total) by mouth nightly 8 Active albuterol HFA (PROVENTIL HFA,VENTOLIN HFA,PROAIR HFA) 90 mcg/actuation inhalerIndicatio ns:illness related Inhale 1 puff as needed for wheezing or shortness of breath 6 Active omega 7-cxf-mye-fish oil 1,000 mg (120 mg-180 mg) capsuleIndicatio ns:hypertriglyce ridemia Take 1 capsule (1,000 mg total) by mouth 2 (two) times a day Active dutasteride (AVODART) 0.5 mg capsuleIndicatio ns:benign prostatic hyperplasia with lower urinary tract sx Take 1 capsule (0.5 mg total) by mouth nightly Active nabumetone (RELAFEN) 750 mg tabletIndication s:Osteoarthritis Take 1 tablet (750 mg total) by mouth 2 (two) times a day Active gabapentin (NEURONTIN) 300 mg capsuleIndicatio ns:Neuropathic Pain Take 1 capsule (300 mg total) by mouth 3 (three) times a day Active vit A/vit C/vit E/zinc/copper (PRESERVISION AREDS ORAL)Indications :eye supplement Take 1 tablet by mouth 2 (two) times a day Active DULoxetine DR (CYMBALTA) 30 mg capsuleIndicatio ns:Neuropathic Pain Take 1 capsule (30 mg total) by mouth every morning 2 Active tiZANidine (ZANAFLEX) 2 mg tabletIndication s:Muscle Spasm Take 1 tablet (2 mg total) by mouth as needed for muscle spasms 2 Active metFORMIN XR (GLUCOPHAGE XR) 500 mg 24 hr tabletIndication s:Type 2 diabetes mellitus with hyperglycemia, without long-term current use of insulin (HCC) Take 1 tablet (500 mg total) by mouth daily 90 tablet 3 4 Active glimepiride (AmaryL) 1 mg tabletIndication s:type 2 diabetes mellitus Take 1 tablet (1 mg total) by mouth daily with breakfast 90 tablet 3 4 Active nitroglycerin (NITROSTAT) 0.[address] 1 tablet (0.4 mg total) under the tongue every 5 (five) minutes as needed for chest pain 90 tablet 3 4 Active Additional Information Patient not taking.Informant: Self, Reported on 08/24/2024 metoprolol XL (TOPROL-XL) 50 mg extended release tablet TAKE ONE TABLET BY MOUTH NIGHTLY 90 tablet 3 4 Active rosuvastatin (CRESTOR) 40 mg tablet TAKE ONE TABLET BY MOUTH NIGHTLY 90 tablet 3 4 Active dorzolamide-chad loL (COSOPT) 22.3-6.8 mg/mL ophthalmic solutionIndicati ons:macular degeneration Administer 1 drop into both eyes 2 (two) times a day 4 Active mirabegron ER (MYRBETRIQ) 50 mg tablet extended release 24 hrIndications:Ur inary frequency TAKE 1 TABLET BY MOUTH EVERY DAY 90 tablet 1 5 Active phenazopyridine (PYRIDIUM) 200 mg tabletIndication s:Interstitial cystitis Take 1 tablet (200 mg total) by mouth 3 (three) times a day 10 tablet 5 Active acetaminophen (TYLENOL) 500 mg tablet Take 2 tablets (1,000 mg total) by mouth every 6 (six) hours as needed for pain 60 tablet 5 Active darifenacin ER (ENABLEX) 15 mg 24 hr tabletIndication s:Interstitial cystitis,Urinary frequency Take 1 tablet (15 mg total) by mouth daily 30 tablet 11 5 08/22/19 26 Active nortriptyline (PAMELOR) 25 mg capsuleIndicatio ns:Interstitial cystitis Take 1 capsule (25 mg total) by mouth nightly 30 capsule 11 5 09/07/19 26 Active oxyCODONE (ROXICODONE) 5 mg immediate release tabletIndication s:Pain Take 1 tablet (5 mg total) by mouth every 4 (four) hours as needed for pain 5 tablet 5 Active phenazopyridine (PYRIDIUM) 200 mg tabletIndication s:Interstitial cystitis TAKE 1 TABLET BY MOUTH 3 TIMES A DAY NEEDED FOR BLADDER SPASMS. 30 tablet 5 Active Active Problems Problem Noted Date Diagnosed Date History of partial nephrectomy 08/14/2024 Left flank pain 08/14/2024 Blood clots in urine 08/18/2023 Renal mass 07/21/2023 Hematuria 07/10/2023 Hypertension associated with diabetes 06/01/2023 Assessment & Plan (04/17/2024 2:06 PM SENIOR C SOFTWARE DEVELOPER): Chronic, well controlled Continue lisinopril and metoprolol Assessment & Plan (09/21/2023 12:41 PM CDT): Chronic, well-controlled. Continue lisinopril. Update microalbumin Assessment & Plan (06/01/2023 12:01 PM SENIOR C SOFTWARE DEVELOPER): Chronic problem. Controlled on current lisinopril 10mg daily, metoprolol XL 50mg nightly Hepatic cirrhosis 05/04/2023 Benign colon polyp 05/04/2023 IC (intermittent claudication) 12/31/2022 Syncope and collapse 07/23/2022 Type 2 diabetes mellitus wit h hyperglycemia, without long-term current use of insulin 07/23/2022 Assessment & Plan (04/17/2024 2:05 PM SENIOR C SOFTWARE DEVELOPER): Chronic, overall well controlled with hemoglobin A1c [...] discussed Assessment & Plan (06/01/2023 1:18 PM SENIOR C SOFTWARE DEVELOPER): Chronic problem. Currently not taking any medications. [...] that time. Aware that he can call/send [employer] message if he changes his mind about [...] analog. Assessment & Plan (07/23/2022 4:32 PM SENIOR C SOFTWARE DEVELOPER): Hba1c was Lab Results Component Value Date [...] (09/17/2021): Added automatically from request for surgery [id number] Pelvic pain 01/24/2021 Overview (01/24/2021): Added automatically from request for surgery [id number] Benign prostatic hyperplasia 01/09/2021 Healthcare maintenance 02/15/2018 Assessment & Plan (02/15/2018 8:19 AM CDT): He reports having had a colonoscopy about 4 years ago removing small polyps. Elevated liver enzymes 02/11/2018 Plantar fasciitis 02/03/2018 Overview (02/03/2018): Added automatically from request for surgery [id number] S/P CABG (coronary artery bypass graft) 06/22/19 17 Essential hypertension 11/07/2015 Hyperlipidemia associated with type 2 diabetes nohelia davalos 11/07/2015 Assessment & Plan (04/17/2024 2:03 PM SENIOR C SOFTWARE DEVELOPER): Continue statin therapy Assessment & Plan (09/21/2023 12:41 PM CDT): Chronic, well-controlled. Continue statin therapy with rosuvastatin Assessment & Plan (06/01/2023 1:15 PM SENIOR C SOFTWARE DEVELOPER): Chronic problem. Managed by cardiology. Currently taking Rosuvastatin 40mg. Last lipid panel: 01/21/23 LDL=97, BY=673. Assessment & Plan (01/21/2023 2:52 PM CDT): LDL goal under 100 Diet and exercise Continue Rosuvastatin Update lipid profile Atherosclerotic heart diseas e of [place] coronary artery without angina pectoris 05/21/2008 Dizziness and giddiness 03/05/2008 Family history of ischemic h eart disease and other diseases of the circulatory system 03/05/2008 Encounters Date Type Department Care Team Description 04/16/2025 12:35 PM SENIOR C SOFTWARE DEVELOPER Lab [facility] Outpatient [address] [address] Arrived 04/16/2025 12:20 PM SENIOR C SOFTWARE DEVELOPER Lab [address] [address] Interstitial cystitis 03/13/2025 Telephone [facility] Medicine Urology [address] [facility] [address] [place] [address] Donya Grvoe LPN 03/13/2025 Orders Only [facility] Medicine Urology [address] [facility] [address] [place] [phone] Bg Desai MD Interstitial cystitis (Primary Dx) 03/12/2025 Telephone [facility] Medicine Urology [address] [facility] [address] [place] [phone] Donya Grove, MAYURI 01/29/2025 1:20 PM CDT Anesthesia Event [facility] Operating Room [address] [place] [phone] Eulalia Mcbride DO McGrath, Laura Anne, WILBUR 01/29/2025 12:50 PM CDT - 01/29/2025 2:00 PM CDT Surgery [facility] Operating Room [address] [place] [phone] Bg Desai MD KENALOG INJECTION, FULGURATION OF HUNNER LESIONS AND INSTILLATION OF LOCAL ANESTHESTIC 01/29/2025 10:52 AM CDT - 01/29/2025 4:30 PM CDT Hospital Encounter [facility] Operating Room [address] [place] [phone] Bg Desai MD IC (interstitial cystitis) (Primary Dx) Discharge Disposition: Discharge to home or self care 01/26/2025 10:40 AM CDT Lab [address] [address] Interstitial cystitis 01/25/2025 Orders Only [facility] Medicine Urology [address] [facility] [address] [place] [phone] Bg Desai MD Interstitial cystitis (Primary Dx) from Last 3 Months Immunizations Immunization Administration [...] SHOULDER ARTHROSCOPY W/ ROTA TOR CUFF REPAIR 05/17/2007 - 05/16/2008 right x 3, left x 2; with labrum and bicep tendon repair- last one 2007 WISDOM TOOTH EXTRACTION over 20 years ago KNEE ARTHROSCOPY 05/17/1991 - 05/16/1992 Left x 2, 1991 and 1993 OTHER [...] OssaTron device. COLONOSCOPY 05/17/2021 - 05/16/2022 ESOPHAGOGASTRODUODENOSCOPY 04/16/2022 - 05/16/2022 last one 04/2022 SPINE SURGERY Cervical spine fusion 2013 Cervical spine fusion 2013 BLADDER SURGERY 10/21/2021 KIDNEY SURGERY 09/28/2023 Left ROBOTIC ASSISTED LAPAROSCOPIC PARTIAL RETROPERITONEAL NEPHRECTOMY CYSTOSCOPY 08/16/2023 - 09/14/2023 FULGURATION OF HUNNER LESIONS CYSTOSCOPY 06/17/2023 - 07/15/2023 CYSTOSCOPY 05/17/2022 - 05/16/2023 BLADDER HYDRODISTENTION: KENALOG INJECTION FULGURATION OF HUNNER LESIONS, INSTILLATION OF LOCAL ANETHETICS IN THE BLADDER ESOPHAGOGASTRODUODENOSCOPY 05/17/2021 - 05/16/2022 BLADDER FULGURATION 12/17/2023 FULGURATION OF HUNNER LESIONS, KENALOG INJECTION INTO BLADDER LESION- 03/2024 CYSTOSCOPY 01/14/2024 TUMOR REMOVAL 08/16/2023 - 09/14/2023 kidney Medical History Medical History Date Comments Gastric reflux well controlled Headache Pneumonia x 3--last 2013 Arthritis 2010 Cancer (HCC) skin cancer 2012 skin, arms CAD (coronary artery disease) [place] (myocardial infarction) (HCC) 2011 Recurrent bronchiectasis ([facility]) l ast 2016 Macular degeneration Vertigo Motion sickness PONV (postoperative nausea a nd vomiting) states in overnight hospitalization d/t nausea, no incidents since Psoriasis Torn rotator cuff History of torn meniscus of left knee Cervical vertebral fusion 2014 Hearing difficulty Muscle pain Photosensitivity Tinnitus Dysuria Hematuria Depression 2012 Personal history of COVID-19 05/2021 Daphney ble pneumonia / not hospitalized Delayed emergence from gener al anesthesia states in overnight hospitalization d/t delayed emergence, no incidents since Hypertension 2012 GERD (gastroesophageal reflu x disease) 2004 Type 2 diabetes mellitus Sleep apnea Wears CPAP Hunner's ulcer Chronic bronchitis ([facility]) 1994 Kidney stone 02/2022 Obesity Family History Medical History Relation Name Comments Cancer Brother 1 Diabetes Brother 1 Heart disease Brother 1 Diabetes Brother 2 Braun, Simone Diabetes Brother 3 Braun, Shayan Arthritis [...] 3 Braun, Shayan Father Braun, Prudencio Mother Braun, Becca Alive Sister Cecily Arora Social History Tobacco Use Types Packs/Day Years Used Date Smoking Tobacco: Never Passive Smoke Exposure: Past Smokeless Tobacco: Never Alcohol Use Standard Drinks/Week Comments No 0 (1 standard drink = 0.6 oz pur e alcohol) [facility] Utilities Answer Date Recorded In the past 12 months has [employer], gas, oil, or water [employer] threatened to shut off services in your home? No 09/29/2023 Social Connection and Isolation Panel Answer Date Recorded In a typical week, how many times do you talk on the phone with family, friends, or neighbors? More than three times a week 09/29/2023 How often do you get togethe r with friends or relatives? More than three times a week 09/29/2023 How often do you attend chur ch or christian services? 1 to 4 times per year 09/29/2023 Do you belong to any clubs o r organizations such as alevism groups, unions, fraternal or athletic groups, or school groups? Yes 09/29/2023 How often do you attend meet ings of the clubs or organizations you belong to? 1 to 4 times per year 09/29/2023 Are you , , di vorced, , never , or living with a partner? 09/29/2023 AUDIT-C Answer Date Recorded Q1: How often do you have a drink containing alcohol? Never 08/14/2024 Q2: How many drinks containi ng alcohol do you have on a typical day when you are drinking? Patient does not drink Q3: How often do you have si x or more drinks on one occasion? Never 08/14/2024 Overall Financial Resource Strain (CARDIA) Answe r [...] place to sleep or slept in a jail (including now)? No 09/29/2023 Personal Safety Answer Date Recorded Have you ever been in or are you currently in a harmful physical or emotional relationship or is someone making you feel afraid or unsafe? Denies 01/29/2025 Sex and Gender Information Value Date Recorded Sex Assigned at Not on file Legal Sex Male 2:12 AM SENIOR C SOFTWARE DEVELOPER Gender Identity Not on file Sexual Orientation Not on file Last Filed Vital Signs Vital Sign Reading Time Taken Comments Blood Pressure 132/82 01/29/2025 3:10 PM CDT Pulse 76 01/29/2025 3:10 PM CDT Temperature 36.8 C (98.2 F) 01/29/2025 3:10 PM CDT Respiratory Rate 12 01/29/2025 3:10 PM CDT Oxygen Saturation 91% 01/29/2025 3:10 PM CDT Inhaled Oxygen Concentration - - Weight 81.6 kg (180 lb) 01/29/2025 11:20 AM CDT Height 162.6 cm (5' 4) 01/29/2025 11:20 AM CDT Body Mass Index 30.9 01/29/2025 11:20 AM CDT Plan of Treatment Upcoming Encounters Date Type Department Care Team (Late st Contact Info) Description 04/24/2025 9:45 AM SENIOR C SOFTWARE DEVELOPER Hospital Encounter [address] [address] 04/30/2025 12:58 PM SENIOR C SOFTWARE DEVELOPER Hospital Encounter [facility] Operating Room [address] [place] [address] Bg Desai MD [address] [address] 04/30/2025 12:58 PM SENIOR C SOFTWARE DEVELOPER - 04/30/2025 2:52 PM SENIOR C SOFTWARE DEVELOPER Surgery [facility] Operating Room [address] [place] [phone] Bg Desai MD [address] [address] BLADDER HYDRODISTENTION: KENALOG INJECTION FULGURATION OF HUNNER LESIONS Scheduled Procedures Name Priority Associated Diagnoses Date/Ti me BLADDER HYDRODISTENTION IC (interstitial cystitis) 04/30/2025 12:58 PM SENIOR C SOFTWARE DEVELOPER CYSTOSCOPY IC (interstitial cystitis) 04/30/2025 12:58 PM SENIOR C SOFTWARE DEVELOPER BLADDER HYDRODISTENTION IC (interstitial cystitis) CYSTOSCOPY IC (interstitial cystitis) Health Maintenance Due Date Last Done Comments Depression Screening 1960 DTaP/Tdap/Td Vaccine (1 - Tdap) 1969 Zoster Vaccine (1 of 2) 2008 Pneumococcal vaccine 65+ (2 of 2 - PPSV23, PCV20, or PCV21) 06/23/2021 04/28/2021 Well Visit 65+ 2023 Dilated Eye Exam 10/24/2023 10/23/2022 Hemoglobin A1C 10/16/2024 04/17/2024, 11/2023, 09/14/2023, Additional history exists Covid-19 Vaccine (3 - 2024-2 6 season) 2025 07/14/2021, 07/23/2020 Influenza Vaccine (#1) 2025 , 03/21/2020, 06/12/2013 Foot Exam 04/17/2025 04/17/2024, 07/23/2022 Prostate Cancer Screening-PSA 06/15/2025, 11/05/2021, 12/16/2020, Additional history exists Lipid Panel 08/08/2025 08/08/2024, 11/2022, 12/16/2020, Additional history exists Fall Risk Assessment 01/29/2026 01/29/2025, 04/15/2023, 04/05/2023, Additional history exists Albumin Creatinine Ratio, Urine 04/16/2026 04/16/2025, 09/21/2023, 07/23/2022 eGFR 04/16/2026 04/16/2025, 07/2023, 01/14/2024, Additional history exists Colon Cancer Screening-Colonoscopy 04/27/2032 04/27/2022 Hepatitis B Screening Completed 06/28/2019 Hepatitis C Screening Completed 06/28/2019, 018 Colon Cancer Screening-CT Colonography Discontinued 04/27/2022 Colon Cancer Screening-DNA Stool Discontinued 04/27/20 Colon Cancer Screening-FIT Discontinued 04/27/2022 Colon Cancer Screening-Sigmoidoscopy Discontinued 04/27/2022 Goals Goal Patient Goal Type Associated Problems Recent Progress Patient-Stated? Author [facility] Fall Prevention Care Plan Chronic Care Management No change(03/19 9:53 AM SENIOR C SOFTWARE DEVELOPER) No Chani Vela RN Note: Problem: Falls Goals: 1. Maintain strength and balance as able 2. Prevent falls and fractures 3. Maximize safety of living environment Strategies: - Educate on fall prevention and follow-up as needed - Recommend activity/exercise program - Refer to allied health as needed - Recommend healthy lifestyle strategies and compensatory methods as needed [facility] Chronic Pain Care Plan Chronic Care Management No change(03/19 9:53 AM SENIOR C SOFTWARE DEVELOPER) No Chani Vela RN Note: Problem: Chronic Pain Goals: 1. Minimize further functional decline 2. Maximize quality of life 3. Control pain Strategies: - Activity/exercise program recommendation - Conservative stepwise pain medicine strategy with multi-disciplinary approach - Recommend healthy lifestyle strategies and compensatory methods as needed Autogenerated Goal Care Plan Autogenerated Problem No Barbara Hough RMA Medical Devices Implanted Type Area Claims Adjuster Supervisor Device Identifier Shelf Expiration Date Model / Serial / Lot Chest Sternal Wires Chest Description:Cabg x [id number] Procedures Procedure Name Priority Date/Time Associated Diagnosis Comments EGFR Routine 04/16/2025 12:33 PM SENIOR C SOFTWARE DEVELOPER ALBUMIN CREATININE RATIO, URINE Routine 04/16/2025 12:33 PM SENIOR C SOFTWARE DEVELOPER IRON PROFILE W/ IBC Routine 04/16/2025 12:33 PM SENIOR C SOFTWARE DEVELOPER CBC WITHOUT DIFFERENTIAL Routine 04/16/2025 12:33 PM SENIOR C SOFTWARE DEVELOPER BASIC METABOLIC PANEL Routine 04/16/2025 12:33 PM SENIOR C SOFTWARE DEVELOPER VITAMIN B12 Routine 04/16/2025 12:33 PM SENIOR C SOFTWARE DEVELOPER VITAMIN D 25 HYDROXY Routine 04/16/2025 12:33 PM SENIOR C SOFTWARE DEVELOPER MAGNESIUM Routine 04/16/2025 12:33 PM SENIOR C SOFTWARE DEVELOPER FERRITIN Routine 04/16/2025 12:33 PM SENIOR C SOFTWARE DEVELOPER URINE CULTURE Routine 04/16/2025 12:29 PM SENIOR C SOFTWARE DEVELOPER Interstitial cystitis POCT GLUCOSE DEVICE Routine 01/29/2025 2 :29 PM CDT VA AN PROCEDURE PLACEHOLDER Routine 01/29/2025 1:38 PM CDT VA AN ELECTIVE SUPRAGLOTTIC AIRWAY Routine 01/29/2025 1:38 PM CDT CYSTOSCOPY 01/29/2025 1:23 PM CDT IC (interstitial cystitis) Special Needs KENALOG (400 mg in 5 cc) BLADDER HYDRODISTENTION 01/29/2025 1:23 PM CDT IC (interstitial cystitis) Special Needs KENALOG (400 mg in 5 cc) POCT GLUCOSE DEVICE Routine 01/29/2025 11:20 AM CDT URINE CULTURE Routine 01/26/2025 10:10 AM CDT Interstitial cystitis POCT LIPID PANEL Routine 08/08/2024 10:07 AM CDT Atherosclerosis of [place] coronary artery of [place] heart without angina pectoris POCT HEMOGLOBIN A1C Routine 04/17/2024 1 :13 PM SENIOR C SOFTWARE DEVELOPER Type 2 diabetes mellitus with hyperglycemia, without long-term current use of insulin (HCC) PSA DIAGNOSTIC Routine 06/15/2023 2:16 PM SENIOR C SOFTWARE DEVELOPER Encounter for screening for malignant neoplasm of prostate Benign enlargement of prostate HM DIABETES EYE EXAM Routine 10/23/2022 9:30 AM CDT COLONOSCOPY 04/27/2022 11:17 AM SENIOR C SOFTWARE DEVELOPER HEPATITIS PANEL, ACUTE Routine 10:20 AM SENIOR C SOFTWARE DEVELOPER from Last 3 Months or Most Recently Relevant to Health Maintenance Results * eGFR (04/16/2025 12:33 PM SENIOR C SOFTWARE DEVELOPER) eGFR 82 >=60 mL/min/1. 73 m2 Comment: Interpretive Data [...] Current interpretive data was last reviewed 2021. Blood 04/16/2025 12:3 3 PM SENIOR C SOFTWARE DEVELOPER 04/16/2025 3:33 PM SENIOR C SOFTWARE DEVELOPER Tomassterling Hernández MD LAB BLOOD ORDERABLES [facility] Performing Organization Address [facility] Co de Phone Number [place] [address] [facility] [place] [address] * Iron profile w/ IBC (04/16/2025 12:33 PM SENIOR C SOFTWARE DEVELOPER) Iron 64 50 - 150 mcg/dL TIBC 315 250 - 400 mcg/dL [facility] Transferrin saturation 20 20 - 50 % [facility] Blood 04/16/2025 12:3 3 PM SENIOR C SOFTWARE DEVELOPER 04/16/2025 3:33 PM SENIOR C SOFTWARE DEVELOPER Tomassterling Hernández MD LAB BLOOD ORDERABLES Final R esult [address] [place] [address] * Albumin Creatinine Ratio, Urine (04/16/2025 12:33 PM SENIOR C SOFTWARE DEVELOPER) [facility] Albumin Ur 30.2 mg/L Comment: Interpretive Data No reference range established. Current interpretive data was last revised 2018. Creatinine Ur 141.0 mg/dL [facility] Comment: Interpretive Data No reference range established. Current interpretive data was last revised 2018. Albumin Creatinine Ratio, Ur 21 1 - 29 mg/g [facility] Urine 04/16/2025 12:3 3 PM SENIOR C SOFTWARE DEVELOPER 04/16/2025 3:30 PM SENIOR C SOFTWARE DEVELOPER Tomassterling Hernández MD LAB URINE ORDERABLES [facility] Performing Organization Address [facility] Co de Phone Number [address] [employer] [place] [address] * Vitamin D 25 hydroxy (04/16/2025 12:33 PM SENIOR C SOFTWARE DEVELOPER) [facility] Vitamin D 25-OH 42.0 30.0 - 80.0 ng/mL Blood 04/16/2025 12:3 3 PM SENIOR C SOFTWARE DEVELOPER 04/16/2025 3:33 PM SENIOR C SOFTWARE DEVELOPER Tomassterling Hernández MD LAB BLOOD ORDERABLES Final R esult [address] [employer] [place] [address] * CBC without differential (04/16/2025 12:33 PM SENIOR C SOFTWARE DEVELOPER) [facility] WBC 7.54 3.80 - 9.90 K/cumm Hgb 16.5 13.0 - 17.5 g/dL [facility] Hct 50.3 38.9 - 50.3 % [facility] Plt 185 150 - 400 K/cumm [facility] MPV 9.6 9.1 - 12.3 fL [facility] RBC 5.76 4.30 - 5.80 M/cumm [facility] MCV 87.3 81.3 - 96.4 fL [facility] MCH 28.6 27.1 - 33.3 pg [facility] MCHC 32.8 32.3 - 35.7 g/dL [facility] RDW CV 14.3 11.1 - 14.9 % [facility] RDW SD 45.5 35.7 - 48.1 fL [facility] NRBC abs 0.00 0.00 - 0.01 K/cumm [facility] Blood 04/16/2025 12:3 3 PM SENIOR C SOFTWARE DEVELOPER 04/16/2025 3:33 PM SENIOR C SOFTWARE DEVELOPER Tomassterling Hernández MD LAB BLOOD ORDERABLES Final R esult Performing Organization Address City/[facility]/ZIP Co de Phone Number [address] [place] [address] * Magnesium (04/16/2025 12:33 PM SENIOR C SOFTWARE DEVELOPER) [facility] Magnesium 2.1 1.4 - 2.5 mg/dL Blood 04/16/2025 12:3 3 PM SENIOR C SOFTWARE DEVELOPER 04/16/2025 3:33 PM SENIOR C SOFTWARE DEVELOPER Tomassterling Hernández MD LAB BLOOD ORDERABLES Final R esult Performing Organization Address City/[facility] Co de Phone Number [address] [place] [address] * Ferritin (04/16/2025 12:33 PM SENIOR C SOFTWARE DEVELOPER) [facility] Ferritin 373 30 - 400 ng/mL Blood 04/16/2025 12:3 3 PM SENIOR C SOFTWARE DEVELOPER 04/16/2025 3:33 PM SENIOR C SOFTWARE DEVELOPER Tomassterling Hernández MD LAB BLOOD ORDERABLES Final R esult Performing Organization Address City/[facility] Co de Phone Number [address] [place] [address] * Vitamin B12 (04/16/2025 12:33 PM SENIOR C SOFTWARE DEVELOPER) [facility] Vitamin B12 432 230 - 1,250 pg/mL Blood 04/16/2025 12:3 3 PM SENIOR C SOFTWARE DEVELOPER 04/16/2025 3:33 PM SENIOR C SOFTWARE DEVELOPER Tomassterling Hernández MD LAB BLOOD ORDERABLES Final R esult Performing Organization Address [facility] de Phone Number [address] [employer] [place] [address] * Basic metabolic panel (04/16/2025 12:33 PM SENIOR C SOFTWARE DEVELOPER) [facility] Sodium 140 135 - 145 mmol/L Potassium, pl 4.3 3.3 - 4.9 mmol/L [facility] Chloride 103 97 - 110 mmol/L [facility] CO2 27 22 - 32 mmol/L [facility] Anion gap 10 2 - 15 mmol/L [facility] BUN 14 6 - 25 mg/dL [facility] Creatinine 1.01 0.80 - 1.30 mg/dL [facility] [facility] Glucose 119 70 - 199 mg/dL [facility] Comment: Interpretive Data Fasting glucose >/= [...] Current interpretive data was last revised 2022. Calcium 9.7 8.5 - 10.3 mg/dL [facility] Blood 04/16/2025 12:3 3 PM SENIOR C SOFTWARE DEVELOPER 04/16/2025 3:33 PM SENIOR C SOFTWARE DEVELOPER Tomassterling Hernández MD LAB BLOOD ORDERABLES Final R esult Performing Organization Address [facility] Co de Phone Number [address] [place] [address] * Urine culture Urine, clean voided (04/16/2025 12:29 PM SENIOR C SOFTWARE DEVELOPER) Report Final Report: Less than 100,000 colonies/mL (clinically insignificant growth based on current clinical standards) Comment:Testing performed by : [facility], [address] [facility], [place]., [address] Organism (CLINICALLY INSIGNIFICANT GROWTH [facility] Urine, clean voided 04/16/2025 12:29 PM SENIOR C SOFTWARE DEVELOPER 04/16/2025 6:23 PM SENIOR C SOFTWARE DEVELOPER Narrative [facility] 04/17/2025 8:48 PM SENIOR C SOFTWARE DEVELOPER Testing performed by [facility] Microbiology Laboratory ([phone]) Bg Desai MD LAB MICROBIOLOGY - GENERAL ORD ERABLES Final Result [facility] [address] [place] [address] * POCT glucose (01/29/2025 2:29 PM CDT) Glucose, POC 106 70 - 199 mg/dL Blood 01/29/2025 2:29 PM CDT 01/29/2025 2:29 PM CDT Bg Desai MD LAB POCT ORDERABLES - DEVICE F inal Result [facility] Department [place] [address] * VA AN ELECTIVE SUPRAGLOTTIC AIRWAY, VA AN PROCEDURE PLACEHOLDER (01/29/2025 1:38 PM CDT) Narrative Tiera Gibson CRNA - 01/29/2025 1:38 PM CDT Tiera Gibson CRNA 01/29/2025 1:39 PM Airway Patient location: OR Urgency: elective Difficult airway: no Staff: Supervising provider: Eulalia Mcbride DO Placed by: ADVOCACY DIRECTOR: Tiera Gibson CRNA Emergent airway documentation: Risks and benefits discussed: yes Consent obtained: yes Consent given by: patient Airway prep: Preoxygenated: yes Patient position: sniffing Mask difficulty assessment: 0 - not attempted Spontaneous ventilation during airway: absent Sedation level during airway: GA Final airway details: Final airway type: supraglottic airway Final supraglottic airway: IGel SGA size: 4 Number of attempts: 1 Eulalia Mcbride DO ANESTHESIA ORDERABLES Final Result * POCT glucose (01/29/2025 11:20 AM CDT) Glucose, POC 170 70 - 199 mg/dL Blood 01/29/2025 11:2 0 AM CDT 01/29/2025 11:20 AM CDT Bg Desai MD LAB POCT ORDERABLES - DEVICE F inal Result Performing Organization Address City/[facility]/ZIP Co de Phone Number [facility] Department [place] [address] * Urine culture Urine, clean voided (01/26/2025 10:10 AM CDT) Report Final Report: Less than 100,000 colonies/mL (clinically insignificant growth based on current clinical standards) Comment:Testing performed by : [facility], [address] [facility], [place]., [address] Organism (CLINICALLY INSIGNIFICANT GROWTH [facility] Urine, clean voided 01/26/2025 10:10 AM CDT 01/26/2025 5:55 PM CDT Narrative SHANTAL - 01/27/2025 8:29 PM CDT Testing performed by [facility] Microbiology Laboratory ([phone]) Bg Desai MD LAB MICROBIOLOGY - GENERAL ORD ERABLES Final Result [facility] [address] [facility] Department [place] [address] * POCT lipid panel (08/08/2024 10:07 AM CDT) Cholesterol, POC 155 mg/dL HDL, POC <15 mg/dL Triglycerides, POC 639 mg/dL LDL Cholesterol POC 67 mg/dL Cholesterol Total, POC 155 mg/dL Capillary blood 08/08/2024 1 0:07 AM CDT Joseph Lockwood MD POINT OF CARE TEST ORDER LEODAN Final Result * POCT hemoglobin A1c (04/17/2024 1:13 PM SENIOR C SOFTWARE DEVELOPER) Hemoglobin A1C, POC 5.4 4.0 - 5.6 % Blood 04/17/2024 1:13 PM SENIOR C SOFTWARE DEVELOPER Result [facility] Kim Rivera MD POINT OF CARE TEST ORDERABLES Final Result * PSA diagnostic (06/15/2023 2:16 PM SENIOR C SOFTWARE DEVELOPER) Pathologist [facility] PSA-Total 0.25 <=5.40 ng/mL [facility]OM[facility] Comment: Interpretive Data AGE SEX REFERENCE INTERVAL [...] Current interpretive data last revised 21. Blood Venous blood specimen / Unknown 06/15/2023 2:16 PM SENIOR C SOFTWARE DEVELOPER 06/15/2023 8:21 PM SENIOR C SOFTWARE DEVELOPER Tomas Hernández MD LAB BLOOD ORDERABLES Final R esult [facility] [id number] Department [place] [address] * (ABNORMAL) DIABETES EYE EXAM (10/23/2022 9:30 AM CDT) Historical Provider HEALTH MAINTENANCE Edited Result - Final * COLONOSCOPY (04/27/2022 11:17 AM SENIOR C SOFTWARE DEVELOPER) Anatomical Region Laterality Modality Other Narrative Procedure [...] The scope was passed under direct vision.The [id number] endoscope was introduced through the anus and advanced to the terminal ileum. The colonoscopy was performed without difficulty. The patient tolerated the procedure well. The qualityof the bowel preparation was fair. The quality of the bowel preparation was evaluated using the BBPS([place] Bowel Preparation Scale) with scores of: RightColon [...] On: 04/27/2022 11:17 AM Recognized by the [employer] for promoting quality in endoscopy Marichuy Hays MD ENDOSCOPY PROCEDURES Final Res ult * Hepatitis panel, acute (06/28/2019 10:20 AM SENIOR C SOFTWARE DEVELOPER) Hep A IgM Negative Negative [facility] Hep B core IgM Negative Negative [facility] Hep C Ab Negative Negative [facility] HepBsAg Nonreactive Nonreactive [facility] Blood specimen (specimen) 06/28/2019 10:20 AM SENIOR C SOFTWARE DEVELOPER 06/28/2019 10:20 AM SENIOR C SOFTWARE DEVELOPER Casie Shaw MD LAB MICROBIOLOGY - GENERA L ORDERABLES Final Result [facility] [id number] [facility] Department [place] [address] from Last 3 Months or Most Recently Relevant to Health Maintenance Additional Health Concerns Active Problems Noted Date Diagnosed Date Autogenerated Problem 03/13/2025 Insurance [employer] [facility] [employer] CHO[employer] PPO [facility] [employer] PPO Advance Directives For more information, please contact: [phone] * Full Code (Latest Code Status on [...] 10:17 AM 04/27/2022 5:07 PM Care Teams Bull Bucker Relationship Specialty Start Date End Date Tomas Hernández MD PCP - General 03/19/17 Francisco Domínguez MD [address] [address] Referring Physician Internal Medicine 02/03/18
--- OUTSIDE RECORDS SUMMARY | 2025-04-18 15:02 | XMS_ITS | Encounter Summary ---
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 [facility] Final Result * PROSTATE SPECIFIC ANTIGEN,TOTAL (03/01/2019) PSA 0.52 03/01/2019 [employer] [facility] Edited Resul t - Final * THYROXINE, FREE (FT4) (03/01/2019) FREE T4 1.02 03/01/2019 [facility] Final Result * LIPID PANEL (06/24/2017) CHOLESTEROL 194 HDL 24 TRIGLYCERIDES 285 NON HDL CHOLESTEROL 170 LDL (CALCULATED) 113 06/24/2017 [facility] Edited Resul t - [...] on filedocumented in this encounter Care Teams Electrolog Operator Relationship Specialty Start Date End Date Tomas Hernández MD [address] [address] PCP - General FAMILY PRACTICE 11/11/15 Francisco Domínguez MD [facility]. [address] [address] [employer]a [employer] CARDIOVASCULAR DISEASE 11/14/15 documented as of this encounter
== END 2025-04-18 13:49 | disposition home or self-care (01) ==
PROVIDERS: PCP Family Medicine; Visit Provider Family Medicine
DX: E72.20 Disorder of urea cycle metabolism, unspecified (principal)
CPT/HCPCS: 36415; 82140